=== PATIENT | female | born 1940 | race Caucasian/White ===

== ENCOUNTER → 2016-08-01 | Outpatient (CLI) | payer MEDICARE, OTHER ==
[~2016-08-01] MED LIST: AC500T PO; ATEN50TA PO; CALC-80 PO; CLCX200C PO; CPH500CIP PO; CPR500T PO; CYCL10TA45 PO; ENXP80I.8 SC; ESTR2TAB4 PO; EZET10TA5 PO; FENO54TA PO; FEXO180T PO; FLUT1DIS26 IH; MAXIDE PO; MNTL10T PO; OMEP-10 PO; OMG1KC PO; OXYC1TAB25 PO; POTASSIUM PO; PRAVASTATIN 20 MG PO; Q10 PO; VIT C PO; VIT E PO; WRF1T PO; WRF2T PO; WRF5T PO
--- OUTSIDE RECORDS SUMMARY | 2016-08-01 13:03 | XMS REPORT | Continuity of Care Document ---
Author Author [facility] Organization [facility] Address Unknown Phone Unavailable Care Team Providers Care Mooner Name Role Phone SILVANO OGLESBY DO PCP Insurance Providers Payer Name Policy Number Subscriber Name Relationship Wps Medicare [id number] Raymon Urbano 18 Self / Same As Patient For Life [id number] Raymon Urbano 18 Self / Same As Patient Advance Directives Directive Response Recorded Date/Time Advance Directives Yes 07/27/14 12:28pm Health Care Power of Pearl Glue Drier Hitesh HASTINGS 07/27/14 12:28pm Organ Donor No [...] Type Severity Reaction Status Last Updated Penicillins ([id number]) Allergy Unknown Active 07/07/15 Aspirin Allergy Unknown [...] SELECTED GROUPS OF HIGH RISK PATIENTS. [employer] CONSENSUS [employer]FERENCE ON ANTITHROMBOTIC THERAPY (2000). Procedures Procedure Status Date Provider(s) Tracing only of electrocardiogram Completed 02/01/16 SILVANO OGLESBY DO Color Doppler echocardiography Active 02/02/16 SILVANO OGLESBY DO Encounters Encounter Location Arrival/Admit Date Discharge/Depart Date Attending Provider Registered Clinic [facility] 02/02/16 1:24pm SILVANO OGLESBY DO Discharged Recurring [facility] 02/01/16 1:09pm 11:59pm DELTA FRANKLIN FACP, MD FACC Registered Clinic [facility] 02/01/16 12:36pm SILVANO OGLESBY DO
[2016-08-01 13:31] LABS: PROTHROMBIN TIME PATIENT 39.3 SEC (12.2-14.7)
[2016-08-01 13:35] LABS: CALCIUM 9.5 MG/DL (8.5-10.1); CREATININE SERUM 1.57 MG/DL (0.60-1.30); POTASSIUM 3.9 MMOL/L (3.6-5.0)
== END ==
LOC: LAB 12:59
PROVIDERS: ATTEND Family Medicine
DX: N28.9 Disorder of kidney and ureter, unspecified (principal); Z79.01 Long term (current) use of anticoagulants
CPT/HCPCS: 36415; 80048; 85610

== ENCOUNTER 2016-08-08 12:51 | Outpatient (RCR) | payer MEDICARE, OTHER ==
--- OUTSIDE RECORDS SUMMARY | 2016-06-04 13:08 | XMS REPORT | Continuity of Care Document ---
Author Author [facility] Organization [facility] Address Unknown Phone Unavailable Care Team Providers Care Med Dir Name Role Phone SILVANO OGLESBY DO PCP Insurance Providers Payer Name Policy Number Subscriber Name Relationship Wps Medicare [id number] Raymon Urbano 18 Self / Same As Patient For Life [id number] Raymon Urbano 18 Self / Same As Patient Advance Directives Directive Response Recorded Date/Time Advance Directives Yes 07/27/14 12:28pm Health Care Power of Grocery Packer Hitesh HASTINGS 07/27/14 12:28pm Organ Donor No 07/27/14 12:28pm Problems Active Problems Medical Problem Onset Date Status Contusion of rib on left side Unknown Acute Fall on same level from slipping, tripping or stumbling Unknown Acute Multiple rib fractures Unknown Acute Multiple rib fractures Unknown Acute Medications Current Home Medications Medication Dose Units Route Directions Days/Qty Instructions Start Date Atenolol 50 Mg 50 Mg Oral Daily 05/09/10 [Maxide 50 Mg] 50 Mg Oral Daily 05/09/10 Montelukast Sodium 10 Mg 10 Mg Oral Daily 05/09/10 Omeprazole 20 Mg 20 Mg Oral Daily 05/09/10 Ezetimibe 10 Mg 10 Mg Oral Daily 05/09/10 Calcium Carbonate/Vitamin D3 1 Each 1 Each Oral Twice Weekly Salmeterol Xinafoate/Fluticasone 1 Disk 1 Puff Inhalation Twice A Day as needed 1 PUFF 05/09/10 [Potassium] 1 Tab Oral Daily 10meq. taking 3 tabs daily 05/09/10 Warfarin Sodium 5 Mg 5 Mg Oral Daily 09/17/12, taking 2mg Fri,, , Sat 1mg other days 05/12/10 Fenofibrate 54 Mg 54 Mg Oral Three Times A Day 09/17/12 Oxycodone Hcl/Acetaminophen 1 Tab 1 Tab Oral Every 4HRS as needed for Pain 07/27/14 Cyclobenzaprine Hcl 10 Mg 0.5-1 Tab Oral Every 8HRS as needed for Spasms 07/27/14 Cephalexin Monohydrate 500 Mg 500 Mg Oral Every 8HRS 07/27/14 Past Home Medications Medication Directions Ordered Status Estradiol 2 Mg Tablet, 2 Mg Oral Daily 05/09/10 Discontinued [Pravastatin 20 Mg] , 20 Mg Oral Daily 05/09/10 Discontinued Ciprofloxacin 500 Mg Tablet, 1 Tab Oral Twice A Day 05/09/10 Discontinued Warfarin Sodium 1 Mg Tab, 1 Mg Oral Fri, , ,Sat 05/09/10 Discontinued Warfarin Sodium 2 Mg Tab, 2 Mg Oral Fri,Fri,Fri05/09/10 Discontinued [Q10] , 1 Tab Oral Daily 05/09/10 Discontinued [Vit C 600/Vit E 400] , 1 Tab Oral Daily 05/09/10 Discontinued Fish Oil 1,000 Mg Cap, 1000 Mg Oral Daily 05/09/10 Discontinued Celecoxib 200 Mg Capsule, 1 Each Oral Daily 05/09/10 Discontinued Fexofenadine Hcl 180 Mg Tablet, 1 Tab Oral Daily as needed 05/09/10 Discontinued Enoxaparin Sodium 80 Mg/0.8 Ml Soln, 70 Mg Subcutaneously Every 12 Hours 09/16 Discontinued Acetaminophen 500 Mg Tablet, 1000 Mg Oral Every 6 Hours as needed 05/12/10 Discontinued Social History Social History Problem Response Recorded Date/Time Alcohol Use Denies Use 07/27/2014 12:28pm Recreational Drug Use No 07/27/2014 12:28pm Recent Foreign Travel No 02/02/2016 1:23pm Sexually Transmitted Disease No 07/27/2014 12:28pm Sexually Transmitted Disease No 07/27/2014 12:28pm Hx Sexually Transmitted Disorders No 05/09/2010 1:37pm Hospital Discharge Instructions Current inpatient/outpatient. Discharge instructions are currently unavailable. Plan of Care Prescriptions Functional Status No functional status results. Allergies, Adverse Reactions, Alerts Allergen Type Severity Reaction Status Last Updated Penicillins ([id number]) Allergy Unknown Active 07/07/15 Aspirin Allergy Unknown Active 07/07/15 Immunizations No immunization records. Vital Signs No known vital signs results. Results Laboratory Results Test Name Result Units Flags Reference Collection Date/Time Result Date/ Time Comments Prothrombin Time 30.8 SEC H 12.2-14.7 02/01/2016 1:09pm 02/01/2016 1: 31pm INR Comment 3.0 H 0.8-1.4 02/01/2016 1:09pm 02/01/2016 1:31pm INTERPRETIVE DATA SUGGESTED THERAPEUTIC RANGE FOR INR'S: VENOUS THROMBOSIS, PULMONARY EMBOLISM, OR PREVENTION OF SYSTEMIC EMBOLISM (EG. IN ATRIAL FIBRILLATION): 2.0 - 3.0 MECHANICAL PROSTHETIC HEART VALVES: 2.5 - 3.5* *NOTE: INR'S UP TO 4.5 MAY BE NECESSARY IN SELECTED GROUPS OF HIGH RISK PATIENTS. [employer] ON ANTITHROMBOTIC THERAPY (2000). Procedures Procedure Status Date Provider(s) Tracing only of electrocardiogram Completed 02/01/16 SILVANO OGLESBY DO Color Doppler echocardiography Active 02/02/16 SILVANO OGLESBY DO Encounters Encounter Location Arrival/Admit Date Discharge/Depart Date Attending Provider Registered Clinic [facility] 02/02/16 1:24pm SILVANO OGLESBY DO Discharged Recurring [facility] 02/01/16 1:09pm 11:59pm DELTA FRANKLIN FACP, MD FACC Registered Clinic [facility] 02/01/16 12:36pm SILVANO OGLESBY DO
[2016-06-04 13:26] LABS: INR 3.1 (0.8-1.4); PROTHROMBIN TIME PATIENT 31.7 SEC (12.2-14.7)
[2016-08-08 13:09] LABS: PROTHROMBIN TIME PATIENT 22.3 SEC (12.2-14.7)
== END 2016-09-02 | disposition home or self-care (01) ==
LOC: LAB 12:51
PROVIDERS: ATTEND Internal Medicine Cardiovascular Disease
DX: Z51.81 Encounter for therapeutic drug level monitoring (principal); Z79.01 Long term (current) use of anticoagulants
CPT/HCPCS: 36415; 85610

== ENCOUNTER 2016-09-03 10:53 | Outpatient (RCR) | payer MEDICARE, OTHER ==
--- OUTSIDE RECORDS SUMMARY | 2016-07-11 14:36 | XMS REPORT | Continuity of Care Document ---
Author Author [facility] Organization [facility] Address Unknown Phone Unavailable Care Team Providers Care Associate Manager Affiliate Marketing Name Role Phone SILVANO OGLESBY DO PCP Insurance Providers Payer Name Policy Number Subscriber Name Relationship Wps Medicare [id number] Raymon Urbano 18 Self / Same As Patient For Life [id number] Raymon Urbano 18 Self / Same As Patient Advance Directives Directive Response Recorded Date/Time Advance Directives Yes 07/27/14 12:28pm Health Care Power of Powerhouse Electrician Hitesh HASTINGS 07/27/14 12:28pm Organ Donor No [...] Type Severity Reaction Status Last Updated Penicillins ([id number]) Allergy Unknown Active 07/07/15 Aspirin Allergy Unknown [...] SELECTED GROUPS OF HIGH RISK PATIENTS. [employer] CONSENSUS [employer]FERENCE ON ANTITHROMBOTIC THERAPY (2000). Procedures Procedure Status Date Provider(s) Tracing only of electrocardiogram Completed 02/01/16 SILVANO OGLESBY DO Color Doppler echocardiography Active 02/02/16 SILVANO OGLESBY DO Encounters Encounter Location Arrival/Admit Date Discharge/Depart Date Attending Provider Registered Clinic [facility] 02/02/16 1:24pm SILVANO OGLESBY DO Discharged Recurring [facility] 02/01/16 1:09pm 11:59pm DELTA FRANKLIN FACP, MD FACC Registered Clinic [facility] 02/01/16 12:36pm SILVANO OGLESBY DO
== END 2016-09-03 11:51 | disposition home or self-care (01) ==
PROVIDERS: ATTEND Nurse Practitioner
DX: M54.16 Radiculopathy, lumbar region (principal); M51.36 Other intervertebral disc degeneration, lumbar region

== ENCOUNTER → 2016-10-10 | Outpatient (CLI) | payer MEDICARE, OTHER ==
--- NOTE | 2016-10-10 17:30 | Diagnostic Imaging Report ---
EXAMINATION: PA and lateral views of the chest. INDICATION: Cough. FINDINGS: The heart is moderately enlarged. There are no focal infiltrates or vascular congestion. No effusion or pneumothorax. The mediastinum and erma appear unremarkable. There are lateral left breast and axilla surgical clips. An IVC filter is noted. Mild degenerative changes in the spine seen. IMPRESSION: Cardiomegaly. Dictated by: Dictated on workstation # [id number]
== END ==
LOC: RAD 13:25
PROVIDERS: ATTEND Family Medicine
DX: R05 Cough (principal)
CPT/HCPCS: 71020

== ENCOUNTER → 2016-10-10 | Outpatient (CLI) | payer MEDICARE, OTHER ==
[2016-10-10 14:28] LABS: BASOPHILS % (AUTO) 0 % (0-10); EOSINOPHILS % (AUTO) 0 % (0-10); LYMPHOCYTES # (AUTO) 1.4 X 10^3 (1.0-4.0); LYMPHOCYTES % (AUTO) 13 % (12-44); MEAN CORPUSCULAR HEMOGLOBIN 27 PG (25-34); MEAN CORPUSCULAR HGB CONC 32 G/DL (32-36); MEAN CORPUSCULAR VOLUME 84 FL (80-99); MONOCYTES # (AUTO) 1.3 X 10^3 (0.0-1.0); MONOCYTES % (AUTO) 12 % (0-12); NEUTROPHILS # (AUTO) 7.7 X 10^3 (1.8-7.8); NEUTROPHILS % (AUTO) 74 % (42-75); PLATELET COUNT 286 10^3/uL (130-400); RED BLOOD COUNT 5.03 10^6/uL (4.35-5.85); RED CELL DISTRIBUTION WIDTH 15.2 % (10.0-14.5); WHITE BLOOD COUNT 10.5 10^3/uL (4.3-11.0)
== END ==
LOC: LAB 14:04
PROVIDERS: ATTEND Family Medicine
DX: R05 Cough (principal); R50.9 Fever, unspecified
CPT/HCPCS: 36415; 85025

== ENCOUNTER 2016-12-03 13:08 | Outpatient (RCR) | payer MEDICARE, OTHER ==
[2016-09-12 13:44] LABS: INR 4.4 (0.8-1.4); PROTHROMBIN TIME PATIENT 42.1 SEC (12.2-14.7)
[2016-09-19 11:13] LABS: INR 4.9 (0.8-1.4)
[2016-09-19 11:15] LABS: PROTHROMBIN TIME PATIENT 46.1 SEC (12.2-14.7)
[2016-09-24 13:05] LABS: INR 2.3 (0.8-1.4); PROTHROMBIN TIME PATIENT 24.9 SEC (12.2-14.7)
[2016-10-03 13:22] LABS: INR 4.2 (0.8-1.4); PROTHROMBIN TIME PATIENT 40.4 SEC (12.2-14.7)
[2016-10-10 14:34] LABS: INR 2.6 (0.8-1.4); PROTHROMBIN TIME PATIENT 27.9 SEC (12.2-14.7)
[2016-11-07 13:05] LABS: INR 3.2 (0.8-1.4); PROTHROMBIN TIME PATIENT 32.4 SEC (12.2-14.7)
[2016-11-21 13:29] LABS: INR 4.3 (0.8-1.4); PROTHROMBIN TIME PATIENT 41.7 SEC (12.2-14.7)
[2016-11-26 14:20] LABS: INR 2.2 (0.8-1.4); PROTHROMBIN TIME PATIENT 24.5 SEC (12.2-14.7)
[2016-12-03 13:38] LABS: INR 3.5 (0.8-1.4)
== END 2016-12-11 | disposition home or self-care (01) ==
LOC: LAB 13:08
PROVIDERS: ATTEND Internal Medicine Cardiovascular Disease
DX: Z51.81 Encounter for therapeutic drug level monitoring (principal); Z79.01 Long term (current) use of anticoagulants
CPT/HCPCS: 36415; 85610

== ENCOUNTER → 2016-12-03 | Outpatient (CLI) | payer MEDICARE, OTHER ==
[2016-12-03 13:30] LABS: BILIRUBIN,URINE NEGATIVE (NEGATIVE); KETONES,URINE NEGATIVE (NEGATIVE); LEUKOCYTE ESTERASE ,URINE 1+ (NEGATIVE); NITRITE,URINE NEGATIVE (NEGATIVE); PH,URINE 7 (5-9); PROTEIN,URINE 3+ (NEGATIVE); UROBILINOGEN,URINE 1 MG/DL (NORMAL)
[2016-12-03 13:37] LABS: BASOPHILS # (AUTO) 0.1 10^3/uL (0.0-0.1); BASOPHILS % (AUTO) 1 % (0-10); EOSINOPHILS # (AUTO) 0.2 10^3/uL (0.0-0.3); EOSINOPHILS % (AUTO) 2 % (0-10); LYMPHOCYTES # (AUTO) 1.3 X 10^3 (1.0-4.0); LYMPHOCYTES % (AUTO) 14 % (12-44); MEAN CORPUSCULAR HEMOGLOBIN 25 PG (25-34); MEAN CORPUSCULAR HGB CONC 31 G/DL (32-36); MEAN CORPUSCULAR VOLUME 78 FL (80-99); MEAN PLATELET VOLUME 11.6 FL (7.4-10.4); MONOCYTES # (AUTO) 1.1 X 10^3 (0.0-1.0); MONOCYTES % (AUTO) 12 % (0-12); NEUTROPHILS # (AUTO) 6.6 X 10^3 (1.8-7.8); NEUTROPHILS % (AUTO) 72 % (42-75); PLATELET COUNT 260 10^3/uL (130-400); RED BLOOD COUNT 5.53 10^6/uL (4.35-5.85); WHITE BLOOD COUNT 9.2 10^3/uL (4.3-11.0)
[2016-12-03 13:46] LABS: SQUAMOUS EPITHELIAL CELL,UR 0-2 /HPF; WBC,URINE 0-2 /HPF
[2016-12-03 13:46] LABS: BILIRUBIN,TOTAL 1.6 MG/DL (0.1-1.0); CALCIUM 9.6 MG/DL (8.5-10.1); CREATININE SERUM 1.92 MG/DL (0.60-1.30); ICTERUS 1.1 (-100-1.9); POTASSIUM 3.8 MMOL/L (3.6-5.0)
== END ==
LOC: LAB 13:02
PROVIDERS: ATTEND Family Medicine
DX: R39.11 Hesitancy of micturition (principal); N28.9 Disorder of kidney and ureter, unspecified
CPT/HCPCS: 36415; 80053; 81000; 85025

== ENCOUNTER → 2016-12-26 | Outpatient (CLI) | payer MEDICARE, OTHER ==
[2016-12-26 15:05] LABS: BASOPHILS # (AUTO) 0.1 10^3/uL (0.0-0.1); BASOPHILS % (AUTO) 1 % (0-10); EOSINOPHILS # (AUTO) 0.1 10^3/uL (0.0-0.3); EOSINOPHILS % (AUTO) 1 % (0-10); LYMPHOCYTES % (AUTO) 12 % (12-44); MEAN CORPUSCULAR HEMOGLOBIN 23 PG (25-34); MEAN CORPUSCULAR HGB CONC 31 G/DL (32-36); MEAN CORPUSCULAR VOLUME 76 FL (80-99); MEAN PLATELET VOLUME 11.5 FL (7.4-10.4); MONOCYTES # (AUTO) 1.2 X 10^3 (0.0-1.0); MONOCYTES % (AUTO) 14 % (0-12); NEUTROPHILS # (AUTO) 6.2 X 10^3 (1.8-7.8); NEUTROPHILS % (AUTO) 72 % (42-75); PLATELET COUNT 285 10^3/uL (130-400); RED BLOOD COUNT 5.53 10^6/uL (4.35-5.85); RED CELL DISTRIBUTION WIDTH 18.1 % (10.0-14.5); WHITE BLOOD COUNT 8.7 10^3/uL (4.3-11.0)
[2016-12-26 15:26] LABS: ALBUMIN 3.6 GM/DL (3.2-4.5); BILIRUBIN,TOTAL 1.5 MG/DL (0.1-1.0); CALCIUM 9.2 MG/DL (8.5-10.1); CREATININE SERUM 2.15 MG/DL (0.60-1.30); POTASSIUM 4.2 MMOL/L (3.6-5.0); TOTAL PROTEIN 6.7 GM/DL (6.4-8.2)
[2016-12-26 15:38] LABS: BAND NEUTROPHILS 0 %; BASOPHILS % (MANUAL) 1 %; EOSINOPHILS % (MANUAL) 1 %; LYMPHOCYTES % (MANUAL) 22 %; NEUTROPHILS % (MANUAL) 73 %
== END ==
LOC: LAB 14:49
PROVIDERS: ATTEND Nurse Practitioner Family
DX: R06.02 Shortness of breath (principal)
CPT/HCPCS: 36415; 80053; 83880; 85007; 85027

== ENCOUNTER 2016-12-27 11:53 | Emergency (ER) | payer MEDICARE, OTHER ==
[~2016-12-27] VITALS: Ht 149.9 cm; Wt 69.9 kg
[2016-12-27] MEDS ORDERED: FUROSEMIDE 40 MG/4 ML INJ (LASIX) IVP ONE (12:00)
--- NOTE | 2016-12-27 12:08 | ED Respiratory ---
General Stated Complaint: RETAINING FLUID Source: patient, family, caregiver Exam Limitations: no limitations History of Present Illness Time seen by provider: 12:07 Initial Comments This 76-year-old white female presents with increasing shortness of breath for the past 2 months. The patient has been referred to the emergency department by Dr. Elizabeth's office for evaluation and treatment. Her congestive heart failure has responded poorly to her 40 mg of Lasix daily. Patient denies fever chill, productive cough, associated nausea, vomiting, dysuria, or diarrhea. She's had no significant chest pain or palpitations. The patient saw Dr. French yesterday and because of her elevated labs she was referred to the emergency department for evaluation today. The patient has been using Lasix 40 mg on a QOD basis. Allergies and Home Medications Allergies Coded Allergies: Penicillins (Unverified Allergy, Unknown, 07/07/15) aspirin (Unverified Allergy, Unknown, 07/07/15) Home Medications Atenolol 50 Mg Tablet, 50 MG PO DAILY, (Reported) Calcium Carbonate/Vitamin D3 1 Each Tablet, 1 EACH PO TWICE WEEKLY, (Reported) Cephalexin Monohydrate 500 Mg Cap, 500 MG PO Q8H, #21 Ref 0 Prescribed by: BARBARA HODGES on 07/27/141626 Cyclobenzaprine Hcl 10 Mg Tablet, 0.5-1 TAB PO Q8H PRN for SPASMS, #10 Ref 0 Prescribed by: BARBARA HODGES on 07/27/141626 Ezetimibe 10 Mg Tablet, 10 MG PO DAILY, (Reported) Fenofibrate 54 Mg Tablet, 54 MG PO TID, (Reported) Fluticasone/Salmeterol 1 Disk Inhp, 1 PUFF IH BID PRN, (Reported) 1 PUFF Montelukast Sodium 10 Mg Tab, 10 MG PO DAILY, (Reported) Omeprazole 20 Mg Capsule.dr, 20 MG PO DAILY, (Reported) Oxycodone Hcl/Acetaminophen 1 Tab Tablet, 1 TAB PO Q4H PRN for PAIN, #20 Ref 0 Prescribed by: BARBARA HODGES on 07/27/141626 Warfarin Sod 5 Mg Tab, 5 MG PO DAILY, (Reported) 09/17/12, taking 2mg Sun,Tu, Thurs, Sat 1mg other days [Maxide 50 Mg] , 50 MG PO DAILY, (Reported) [Potassium] , 1 TAB PO DAILY, (Reported) 10meq. taking 3 tabs daily Constitutional: No chills, No fever EENTM: No mouth pain, No nose congestion Respiratory: see HPI, cough, short of breath Cardiovascular: No chest pain, No palpitations Gastrointestinal: No abdominal pain, No diarrhea, No nausea, No vomiting Genitourinary: No dysuria, No frequency : No Musculoskeletal: No back pain Skin: No rash Psychiatric/Neurological: No Symptoms Reported Hematologic/Lymphatic: No Symptoms Reported Past Omgapse-Wgrlue-Lttypz Hx Patient Social History Recent Foreign Travel: No Contact w/Someone Who Travel: No Immunizations Up To Date Date of Pneumonia Vaccine: Apr 09, 2013 Date of Influenza Vaccine: Apr 09, 2014 Surgeries HX Surgeries: Yes (194 TONSILS, HYSTERECTOMY 1963, BREAST CA 75, HIP & ,10, BREAST 93,) Surgeries: Breast, Hysterectomy, Orthopedic, Tonsillectomy Respiratory Hx Respiratory Disorders: No Cardiovascular Hx Cardiac Disorders: No Neurological Hx Neurological Disorders: No Reproductive System Hx Reproductive Disorders: Yes Sexually Transmitted Disease: No Genitourinary Hx Genitourinary Disorders: No Gastrointestinal Hx Gastrointestinal Disorders: No Musculoskeletal Hx Musculoskeletal Disorders: Yes Musculoskeletal Disorders: Fractures Endocrine Hx Endocrine Disorders: No HEENT HX ENT Disorders: Yes Cancer Hx Cancer: Yes Cancer: Breast Psychosocial Hx Psychiatric Problems: No Blood Transfusions Hx Blood Disorders: Yes Reviewed Nursing Assessment Reviewed/Agree w Nursing PMH: Yes Physical Exam Vital Signs Vital Sign - Last 12Hours 12/27/16 12/27/16 12:04 14:48 Temp 97.8 Pulse 108 Resp 18 B/P (MAP) 117/78 Pulse Ox 98 O2 Delivery Room Air O2 Flow Rate 2.00 Capillary Refill : General Appearance: cachetic, mild distress Eyes: Bilateral Eye Normal Inspection HEENT: normal ENT inspection Neck: full range of motion, supple Respiratory: respiratory distress, decreased breath sounds Cardiovascular: irregularly irregular Gastrointestinal: normal bowel sounds, soft, distended Extremities: normal range of motion, swelling (2+ edema of the legs) Neurologic/Psychiatric: no motor/sensory deficits, alert Skin: normal color, warm/dry Progress/Results/Core Measures Results/Orders Lab Results Laboratory Tests Test 12/27/16 12:16 Range/Units White Blood Count 8.4 4.3-11.0 10^3/uL Red Blood Count 5.70 4.35-5.85 10^6/uL Hemoglobin 13.5 11.5-16.0 G/DL Hematocrit 43 35-52 % Mean Corpuscular Volume 76 L 80-99 FL Mean Corpuscular Hemoglobin 24 L 25-34 PG Mean Corpuscular Hemoglobin Concent 31 L 32-36 G/DL Red Cell Distribution Width 18.4 H 10.0-14.5 % Platelet Count 325 130-400 10^3/uL Mean Platelet Volume 11.5 H 7.4-10.4 FL Neutrophils (%) (Auto) 71 42-75 % Lymphocytes (%) (Auto) 15 12-44 % Monocytes (%) (Auto) 12 0-12 % Eosinophils (%) (Auto) 1 0-10 % Basophils (%) (Auto) 1 0-10 % Neutrophils # (Auto) 5.9 1.8-7.8 X 10^3 Lymphocytes # (Auto) 1.3 1.0-4.0 X 10^3 Monocytes # (Auto) 1.0 0.0-1.0 X 10^3 Eosinophils # (Auto) 0.1 0.0-0.3 10^3/uL Basophils # (Auto) 0.1 0.0-0.1 10^3/uL D-Dimer 1.76 H 0.00-0.49 UG/ML Sodium Level 142 135-145 MMOL/L Potassium Level 3.8 3.6-5.0 MMOL/L Chloride Level 105 98-107 MMOL/L Carbon Dioxide Level 19 L 21-32 MMOL/L Anion Gap 18 H 5-14 MMOL/L Blood Urea Nitrogen 34 H 7-18 MG/DL Creatinine 2.02 H 0.60-1.30 MG/DL Estimat Glomerular Filtration Rate 24 BUN/Creatinine Ratio 17 Glucose Level 110 H 70-105 MG/DL Calcium Level 9.2 8.5-10.1 MG/DL Total Bilirubin 1.7 H 0.1-1.0 MG/DL Aspartate Amino Transf (AST/SGOT) 35 H 5-34 U/L Alanine Aminotransferase (ALT/SGPT) 27 0-55 U/L Alkaline Phosphatase 56 40-136 U/L Troponin I < 0.30 <0.30 NG/ML B-Type Natriuretic Peptide 2752.9 H <100.0 PG/ML Total Protein 7.2 6.4-8.2 GM/DL Albumin 4.0 3.2-4.5 GM/DL My Orders Orders - SKYLER TRINIDAD MD Chest 1 View, Ap/Pa Only (12/27/16 11:57) Cbc With Automated Diff (12/27/16 11:57) Comprehensive Metabolic Panel (12/27/16 11:57) Saline Lock/Iv-Start (12/27/16 12:00) Furosemide Injection (Lasix Injection) (12/27/16 12:00) BNP (12/27/16 12:00) Troponin I (12/27/16 12:00) Ekg Tracing (12/27/16 12:00) Fibrin Degradation Products (12/27/16 12:00) Echo W Doppler/Color Flow (12/27/16 14:24) Ct Chest Wo (12/27/16 14:24) Medications Given in ED Current Medications Medications Dose Ordered Sig/Teressa Route Start Time Stop Time Status Last Admin Dose Admin Furosemide 80 mg ONCE ONCE IVP 12/27/16 12:00 12/27/16 12:07 DC 12/27/16 13:10 80 MG Vital Signs/I&O Vital Sign - Last 12Hours 12/27/16 12/27/16 12/27/16 12:04 14:48 15:39 Temp 97.8 Pulse 108 91 88 Resp 18 18 18 B/P (MAP) 117/78 125/84 157/85 Pulse Ox 98 100 97 O2 Delivery Room Air Nasal Cannula Room Air O2 Flow Rate 2.00 Progress Note : Time: 14:26 Progress Note The patient's chest x-ray was clear. The patient's d-dimer was elevated at 1.76. The patient's BNP was 2700. The patient's troponin was normal. The patient's EKG showed a. fib. with a ventricular rate of 90. The patient's treatment consisted of 80 mg Lasix IV and O2 per nasal cannula. Patient's pulse oximetry on room air was 83%. Oxygen was given to the patient through a nasal cannula at 2 L per nasal cannula and an improvement of her p. ox. to 96%. After telephone consultation with Dr. French a CT of the chest without contrast was ordered as well as an echo of the heart. 3:35 pm The patient's echo demonstrated an ejection fraction of 30 percent with a PA pressure of 65 mmHg consistent with severe tricuspid regurgitation. The patient 's CT of the chest demonstrated cardiomegaly but no evidence of CHF. I spoke with Dr. Angela and arrangements were made for follow up in the office Friday. I left a message for Dr. French concerning the results and the treatment plan. Departure Impression Impression: Primary Impression: Shortness of breath Additional Impressions: Tricuspid regurgitation Qualified Codes: I07.1 - Rheumatic tricuspid insufficiency Cardiomegaly Ejection fraction < 50% Disposition: HOME, SELF-CARE Condition: Improved Departure-Patient Inst. Decision time for Depature: 16:35 Referrals: TIMBO FRENCH M RIZWAN MD ORENDER, JACQUELINE S DO (PCP/Family) Primary Care Physician Patient Instructions: Tricuspid Regurgitation Add. Discharge Instructions: Follow-up closely with Friday. Call the office Friday. Lasix 40 mg daily, potassium 40 mEq daily, home oxygen at 4 liters. Come back if any problems. SKYLER TRINIDAD MD Dec 27, 2016 12:08
[2016-12-27 12:26] LABS: BASOPHILS # (AUTO) 0.1 10^3/uL (0.0-0.1); BASOPHILS % (AUTO) 1 % (0-10); EOSINOPHILS # (AUTO) 0.1 10^3/uL (0.0-0.3); EOSINOPHILS % (AUTO) 1 % (0-10); LYMPHOCYTES # (AUTO) 1.3 X 10^3 (1.0-4.0); LYMPHOCYTES % (AUTO) 15 % (12-44); MEAN CORPUSCULAR HEMOGLOBIN 24 PG (25-34); MEAN CORPUSCULAR HGB CONC 31 G/DL (32-36); MEAN CORPUSCULAR VOLUME 76 FL (80-99); MEAN PLATELET VOLUME 11.5 FL (7.4-10.4); MONOCYTES % (AUTO) 12 % (0-12); NEUTROPHILS # (AUTO) 5.9 X 10^3 (1.8-7.8); NEUTROPHILS % (AUTO) 71 % (42-75); PLATELET COUNT 325 10^3/uL (130-400); RED CELL DISTRIBUTION WIDTH 18.4 % (10.0-14.5); WHITE BLOOD COUNT 8.4 10^3/uL (4.3-11.0)
[2016-12-27 12:47] LABS: ALANINE AMINOTRANSFERASE 27 U/L (0-55); ANION GAP 18 MMOL/L (5-14); ASPARTATE AMINO TRANSFERASE 35 U/L (5-34); BILIRUBIN,TOTAL 1.7 MG/DL (0.1-1.0); BLOOD UREA NITROGEN 34 MG/DL (7-18); BUN/CREATININE RATIO 17; CALCIUM 9.2 MG/DL (8.5-10.1); CARBON DIOXIDE 19 MMOL/L (21-32); CHLORIDE 105 MMOL/L (98-107); CREATININE SERUM 2.02 MG/DL (0.60-1.30); GFR ESTIMATED 24; GLUCOSE 110 MG/DL (70-105); POTASSIUM 3.8 MMOL/L (3.6-5.0); SODIUM 142 MMOL/L (135-145); TOTAL PROTEIN 7.2 GM/DL (6.4-8.2)
[2016-12-27 12:53] LABS: TROPONIN I < 0.30 NG/ML (<0.30)
--- NOTE | 2016-12-27 13:26 | Diagnostic Imaging Report ---
INDICATION: Fluid retention. COMPARISON: 10/10/2016. FINDINGS: Upright portable view of the chest is obtained. Heart size is normal. The pulmonary vessels appear unremarkable. There is no pneumothorax, mediastinal widening, or pleural fluid demonstrated. The lungs are clear. There are postoperative changes of the left breast and axilla as well as right shoulder. IMPRESSION: No radiographic evidence of an acute cardiopulmonary abnormality. No significant interval change from the prior study. Dictated by: Dictated on workstation # [id number]
[2016-12-27 14:48] VITALS: BP 125/84
[2016-12-27 15:39] VITALS: BP 157/85
--- NOTE | 2016-12-27 16:15 | Diagnostic Imaging Report ---
PROCEDURE: CT chest without contrast. TECHNIQUE: Multiple contiguous axial images were obtained through the chest without the use of intravenous contrast. INDICATION: Fluid retention. Shortness of breath. COMPARISON: CT chest of 07/17/2014. FINDINGS: Lungs and airway: No endoluminal lesion in the trachea or central bronchi. No pulmonary mass or consolidation. No suspicious pulmonary nodules. Stable micronodules in the left lung base, the largest measuring 3 mm within the lingula. Pleura: Trace left pleural fluid. No pneumothorax. Heart and mediastinum: Visualized thyroid is normal. No supraclavicular or axillary lymphadenopathy. No mediastinal, hilar, or juxtaphrenic lymphadenopathy. Cardiomegaly without pericardial effusion. Coronary artery calcifications are present. Normal-caliber thoracic aorta with scattered atherosclerotic plaquing. A small hiatus hernia is present. Upper abdomen: Visualized portions of the unenhanced abdomen demonstrate trace perihepatic ascites. Incompletely imaged IVC filter. Atherosclerosis of the aorta. Musculoskeletal: No concerning focal osseous lesion in the thorax. Stable surgical changes of the left breast with possible adipose cutaneous flap reconstruction. IMPRESSION: 1. No pulmonary edema. 2. Trace left pleural effusion which is not amenable to thoracentesis at this time. 3. Trace perihepatic ascites. 4. Cardiomegaly. 5. Small hiatus hernia. Dictated by: Dictated on workstation # [id number]
[2016-12-27 16:50] VITALS: BP 136/75
== END 2016-12-27 16:50 | disposition home or self-care (01) ==
LOC: EDUNIT# 11:53 → ER 11:59
DX: I07.1 Rheumatic tricuspid insufficiency (principal); I51.7 Cardiomegaly; I50.9 Heart failure, unspecified; Z79.01 Long term (current) use of anticoagulants; Z90.710 Acquired absence of both cervix and uterus; Z85.3 Personal history of malignant neoplasm of breast; Z90.89 Acquired absence of other organs
CPT/HCPCS: 36415; 71010; 71250; 80053; 83880; 84484; 85025; 85379; 93005; 93306; 96374

== ENCOUNTER → 2017-01-13 | Outpatient (CLI) | payer MEDICARE, OTHER ==
[2017-01-13 10:53] LABS: BASOPHILS # (AUTO) 0.1 10^3/uL (0.0-0.1); BASOPHILS % (AUTO) 1 % (0-10); EOSINOPHILS # (AUTO) 0.2 10^3/uL (0.0-0.3); EOSINOPHILS % (AUTO) 3 % (0-10); LYMPHOCYTES # (AUTO) 1.1 X 10^3 (1.0-4.0); LYMPHOCYTES % (AUTO) 19 % (12-44); MEAN CORPUSCULAR HEMOGLOBIN 23 PG (25-34); MEAN CORPUSCULAR HGB CONC 31 G/DL (32-36); MEAN CORPUSCULAR VOLUME 75 FL (80-99); MEAN PLATELET VOLUME 10.9 FL (7.4-10.4); MONOCYTES # (AUTO) 0.8 X 10^3 (0.0-1.0); MONOCYTES % (AUTO) 14 % (0-12); NEUTROPHILS # (AUTO) 3.6 X 10^3 (1.8-7.8); NEUTROPHILS % (AUTO) 63 % (42-75); PLATELET COUNT 270 10^3/uL (130-400); RED BLOOD COUNT 6.34 10^6/uL (4.35-5.85); RED CELL DISTRIBUTION WIDTH 20.4 % (10.0-14.5); WHITE BLOOD COUNT 5.6 10^3/uL (4.3-11.0)
[2017-01-13 11:02] LABS: INR 1.6 (0.8-1.4); PROTHROMBIN TIME PATIENT 19.2 SEC (12.2-14.7)
[2017-01-13 11:16] LABS: CREATININE SERUM 1.54 MG/DL (0.60-1.30); POTASSIUM 3.6 MMOL/L (3.6-5.0)
[2017-01-13 11:17] LABS: BILIRUBIN,TOTAL 1.5 MG/DL (0.1-1.0); CALCIUM 10.2 MG/DL (8.5-10.1); MAGNESIUM 1.7 MG/DL (1.8-2.4); TOTAL PROTEIN 7.3 GM/DL (6.4-8.2)
[2017-01-13 11:38] LABS: DIGOXIN 0.59 NG/ML (0.80-2.00); THYROID STIMULATING HORMONE 2.2 UIU/ML (0.35-4.94)
== END ==
LOC: LAB 10:26
PROVIDERS: ATTEND Internal Medicine Cardiovascular Disease
DX: I48.2 Chronic atrial fibrillation (principal); E78.4 Other hyperlipidemia; I42.0 Dilated cardiomyopathy; I50.21 Acute systolic (congestive) heart failure; N18.4 Chronic kidney disease, stage 4 (severe); R06.02 Shortness of breath
CPT/HCPCS: 36415; 80053; 80162; 83735; 84443; 85025; 85610

== ENCOUNTER → 2017-01-14 | Outpatient (CLI) | payer MEDICARE, OTHER ==
[~2017-01-14] VITALS: Ht 175.3 cm; Wt 68.9 kg
[~2017-01-14] MED LIST changes: +CATHETER FLUSH 10 ML SYR IV PRN; +REGADENOSON 0.4 MG/5 ML SYR (LEXISCAN) IV ONE
[2017-01-14 09:47] VITALS: BP 174/88
--- NOTE | 2017-01-15 07:13 | STRESS TEST ---
DATE OF SERVICE: 01/14/2017 RESTING AND POST-REGADENOSON TECHNETIUM-99M TETROFOSMIN SPECT CT IMAGING ORDERING PHYSICIAN: Dr. Domingo. PRIMARY PHYSICIAN: Dr. Han. CLINICAL DIAGNOSES: Acute diastolic heart failure, dilated cardiomyopathy, shortness of breath. Baseline images were carried out after injection of 10.86 mCi of technetium-99m tetrofosmin. This was followed by 0.4 mg of regadenoson and 30.4 mCi of technetium-99m tetrofosmin for stress imaging. The electrocardiogram showed atrial fibrillation with a controlled ventricular response and with nonspecific ST and T-wave abnormality. This did not change significantly with regadenoson infusion. She noted some headache following regadenoson infusion, which resolved in a few minutes. Review of images at rest and following stress indicates no significant perfusion defects consistent with myocardial ischemia or infarction. Gated images show normal global left ventricular systolic function with normal regional wall motion. Left ventricular ejection fraction is calculated to be 63%. Left ventricular end-diastolic volume is 41 mL. TID is absent (1.01). CONCLUSIONS: 1. No evidence of any significant myocardial ischemia or infarction on this study. 2. Normal regional wall motion. 3. Normal global left ventricular systolic function with a calculated ejection fraction of 63%. Job ID: [id number] DocumentID: [id number] Dictated Date: 01/14/2017 15:25:08 Telephone Answerer Date: 01/15/2017 04:52:47 Dictated By: DELTA DOMINGO MD, MA, FACP, FACC,
== END ==
LOC: CARD 07:40
PROVIDERS: ATTEND Internal Medicine Cardiovascular Disease
DX: I50.21 Acute systolic (congestive) heart failure (principal); I42.0 Dilated cardiomyopathy; E78.4 Other hyperlipidemia; R06.02 Shortness of breath; N18.4 Chronic kidney disease, stage 4 (severe); I48.2 Chronic atrial fibrillation
CPT/HCPCS: 78452; 93017

== ENCOUNTER → 2017-01-20 | Outpatient (CLI) | payer MEDICARE, OTHER ==
[~2017-01-20] MED LIST changes: -CATHETER FLUSH 10 ML SYR IV PRN; -REGADENOSON 0.4 MG/5 ML SYR (LEXISCAN) IV ONE
[2017-01-20 13:57] LABS: BILIRUBIN,TOTAL 0.9 MG/DL (0.1-1.0); CREATININE SERUM 1.57 MG/DL (0.60-1.30); MAGNESIUM 1.4 MG/DL (1.8-2.4); POTASSIUM 3.5 MMOL/L (3.6-5.0); TOTAL PROTEIN 7.2 GM/DL (6.4-8.2)
== END ==
LOC: LAB 12:30
PROVIDERS: ATTEND Nurse Practitioner Family
DX: N18.4 Chronic kidney disease, stage 4 (severe) (principal); I50.21 Acute systolic (congestive) heart failure
CPT/HCPCS: 36415; 80053; 83735

== ENCOUNTER → 2017-01-24 | Outpatient (CLI) | payer MEDICARE, OTHER | LOC: CARD 14:15 | PROVIDERS: ATTEND Nurse Practitioner Family | DX: R06.02 Shortness of breath (principal); J42 Unspecified chronic bronchitis; R60.9 Edema, unspecified | CPT/HCPCS: 94060; 94726; 94729 ==

== ENCOUNTER → 2017-02-04 | Outpatient (CLI) | payer MEDICARE, OTHER ==
[2017-02-04 13:44] LABS: CALCIUM 9.7 MG/DL (8.5-10.1); CREATININE SERUM 1.38 MG/DL (0.60-1.30); MAGNESIUM 1.5 MG/DL (1.8-2.4); POTASSIUM 3.8 MMOL/L (3.6-5.0)
[2017-02-04 13:51] LABS: DIGOXIN 0.42 NG/ML (0.80-2.00)
== END ==
LOC: LAB 13:06
PROVIDERS: ATTEND Nurse Practitioner Family
DX: I48.2 Chronic atrial fibrillation (principal); I42.0 Dilated cardiomyopathy; E78.4 Other hyperlipidemia; E87.6 Hypokalemia; E83.42 Hypomagnesemia; I50.41 Acute combined systolic (congestive) and diastolic (congestive) heart failure; Z79.899 Other long term (current) drug therapy; Z79.01 Long term (current) use of anticoagulants
CPT/HCPCS: 36415; 80048; 80162; 83735

== ENCOUNTER 2017-02-07 09:13 | Outpatient (RCR) | payer MEDICARE, OTHER ==
[2016-12-26 15:17] LABS: INR 4.4 (0.8-1.4); PROTHROMBIN TIME PATIENT 41.9 SEC (12.2-14.7)
[2017-01-01 14:12] LABS: INR 3.3 (0.8-1.4); PROTHROMBIN TIME PATIENT 33.6 SEC (12.2-14.7)
[2017-02-04 16:55] LABS: PROTHROMBIN TIME PATIENT 47.9 SEC (12.2-14.7)
[2017-02-04 16:56] LABS: INR 5.3 (0.8-1.4)
[2017-02-07 09:32] LABS: INR 3.3 (0.8-1.4)
== END 2017-03-08 | disposition home or self-care (01) ==
LOC: LAB 09:13
PROVIDERS: ATTEND Internal Medicine Cardiovascular Disease
DX: I48.91 Unspecified atrial fibrillation (principal); Z79.01 Long term (current) use of anticoagulants
CPT/HCPCS: 36415; 85610

== ENCOUNTER → 2017-02-13 | Outpatient (CLI) | payer MEDICARE, OTHER ==
[2017-02-13 10:28] LABS: CALCIUM 10.3 MG/DL (8.5-10.1); CREATININE SERUM 1.35 MG/DL (0.60-1.30); MAGNESIUM 1.7 MG/DL (1.8-2.4); POTASSIUM 3.6 MMOL/L (3.6-5.0)
== END ==
LOC: LAB 09:25
PROVIDERS: ATTEND Nurse Practitioner Family
DX: E83.42 Hypomagnesemia (principal)
CPT/HCPCS: 36415; 80048; 83735

== ENCOUNTER → 2017-02-13 | Outpatient (CLI) | payer MEDICARE, OTHER ==
--- NOTE | 2017-02-14 09:29 | Diagnostic Imaging Report ---
Digital mammogram bilateral screening. This study was compared to prior exams of 11/15/2015; 11/16/2014; and 04/15/2013. At this time there are no current complaints. By history the patient has had a left mastectomy in 1974. There is still a fair amount of residual fibroglandular tissue overlying the left chest wall. There is no primary or secondary sign of malignancy identified however. A stereotactic clip is again seen in the medial aspect of the left breast. The fibroglandular tissue in the right breast is heterogeneously dense. This does limit the sensitivity of this exam. When compared to the previous study, there does not seem to have been any significant change. There are numerous benign-appearing calcifications and vascular calcifications throughout the right breast. There is no primary or secondary sign of malignancy noted however. IMPRESSION: 1. The post mastectomy changes on the left appear stable. There is no evidence for malignancy involving either breast. 2. The patient should have her annual bilateral screening mammogram on schedule in February of 2018. ACR BI-RADS Category 1: Negative. Result letter will be mailed to the patient. Note: At least 10% of breast cancer is not imaged by mammography. Dictated by: Dictated on workstation # [id number]
== END ==
LOC: RAD 09:20
PROVIDERS: ATTEND Family Medicine
DX: Z12.31 Encounter for screening mammogram for malignant neoplasm of breast (principal)
CPT/HCPCS: 77067

== ENCOUNTER 2017-02-21 20:20 | Outpatient (CLI) | payer MEDICARE, OTHER | END 2017-02-22 06:35 | disposition home or self-care (01) | LOC: SLEEP 20:20 | PROVIDERS: ATTEND Nurse Practitioner Family | DX: G47.33 Obstructive sleep apnea (adult) (pediatric) (principal) | CPT/HCPCS: 95811 ==

== ENCOUNTER 2017-03-10 09:58 | Outpatient (RCR) | payer MEDICARE, OTHER ==
[2017-03-10 10:16] LABS: INR 3.5 (0.8-1.4); PROTHROMBIN TIME PATIENT 34.8 SEC (12.2-14.7)
[2017-03-20 11:06] LABS: INR 2.4 (0.8-1.4); PROTHROMBIN TIME PATIENT 25.7 SEC (12.2-14.7)
== END 2017-06-08 | disposition home or self-care (01) ==
LOC: LAB 09:58
PROVIDERS: ATTEND Internal Medicine Cardiovascular Disease
DX: Z51.81 Encounter for therapeutic drug level monitoring (principal); I48.91 Unspecified atrial fibrillation; Z79.01 Long term (current) use of anticoagulants
CPT/HCPCS: 36415; 85610

== ENCOUNTER → 2017-03-25 | Outpatient (CLI) | payer MEDICARE, OTHER ==
[2017-03-25 15:16] LABS: INR 1.7 (0.8-1.4); PROTHROMBIN TIME PATIENT 19.9 SEC (12.2-14.7)
== END ==
LOC: LAB 14:58
PROVIDERS: ATTEND Family Medicine
DX: I48.91 Unspecified atrial fibrillation (principal); Z79.01 Long term (current) use of anticoagulants
CPT/HCPCS: 36415; 85610

== ENCOUNTER → 2017-07-15 | Outpatient (CLI) | payer MEDICARE, OTHER ==
[2017-07-15 12:12] LABS: ALBUMIN 4.2 GM/DL (3.2-4.5); BILIRUBIN,TOTAL 0.6 MG/DL (0.1-1.0); CALCIUM 10.3 MG/DL (8.5-10.1); CREATININE SERUM 1.54 MG/DL (0.60-1.30); MAGNESIUM 1.8 MG/DL (1.8-2.4); POTASSIUM 4.1 MMOL/L (3.6-5.0); TOTAL PROTEIN 7.6 GM/DL (6.4-8.2)
[2017-07-15 12:18] LABS: DIGOXIN 0.51 NG/ML (0.80-2.00)
== END ==
LOC: RAD 10:22
PROVIDERS: ATTEND Nurse Practitioner Family
DX: I48.2 Chronic atrial fibrillation (principal); I42.0 Dilated cardiomyopathy; G47.33 Obstructive sleep apnea (adult) (pediatric); I50.41 Acute combined systolic (congestive) and diastolic (congestive) heart failure; E78.4 Other hyperlipidemia; N18.4 Chronic kidney disease, stage 4 (severe)
CPT/HCPCS: 36415; 80053; 80061; 80162; 83735; 93306

== ENCOUNTER → 2017-11-07 | Outpatient (CLI) | payer MEDICARE, OTHER ==
[2017-11-07 08:56] LABS: CALCIUM 10.3 MG/DL (8.5-10.1); CREATININE SERUM 1.44 MG/DL (0.60-1.30); POTASSIUM 4.1 MMOL/L (3.6-5.0)
== END ==
LOC: LAB 07:52
PROVIDERS: ATTEND Family Medicine
DX: R73.9 Hyperglycemia, unspecified (principal)
CPT/HCPCS: 36415; 80048; 83036

== ENCOUNTER → 2018-02-23 | Outpatient (CLI) | payer MEDICARE, OTHER ==
--- NOTE | 2018-02-23 13:07 | Diagnostic Imaging Report ---
INDICATION: Routine screening. COMPARISON: Comparison is made with prior mammogram from 02/13/2017 and 11/15/2015. TECHNIQUE: 2D and 3D bilateral screening mammography was performed with computer-aided detection (CAD) system. FINDINGS: The breasts are heterogeneously dense, limiting the sensitivity of mammography. Reportedly, patient has undergone left breast mastectomy with TRAM flap. The residual fibroglandular tissue on the left appears stable. There are surgical clips in the left axilla. Right breast demonstrates numerous benign-appearing parenchymal and vascular calcifications. No mass or malignant appearing microcalcifications are seen. IMPRESSION: No mammographic features suspicious for malignancy are identified. ACR BI-RADS Category 2: Benign findings. Result letter will be mailed to the patient. Note: At least 10% of breast cancer is not imaged by mammography. Dictated by: Dictated on workstation # [id number]
== END ==
LOC: RAD 11:04
PROVIDERS: ATTEND Family Medicine
DX: Z12.31 Encounter for screening mammogram for malignant neoplasm of breast (principal)
CPT/HCPCS: 77067

== ENCOUNTER → 2018-02-25 | Outpatient (CLI) | payer MEDICARE, OTHER ==
[2018-02-25 09:34] LABS: BILIRUBIN,TOTAL 0.7 MG/DL (0.1-1.0); CALCIUM 9.7 MG/DL (8.5-10.1); CREATININE SERUM 1.21 MG/DL (0.60-1.30); POTASSIUM 4.1 MMOL/L (3.6-5.0); TOTAL PROTEIN 6.8 GM/DL (6.4-8.2)
== END ==
LOC: LAB 08:54
PROVIDERS: ATTEND Family Medicine
DX: E11.65 Type 2 diabetes mellitus with hyperglycemia (principal)
CPT/HCPCS: 36415; 80053; 83036

== ENCOUNTER → 2018-02-25 | Outpatient (CLI) | payer MEDICARE, OTHER ==
[2018-02-25 09:36] LABS: ALBUMIN 3.9 GM/DL (3.2-4.5); BILIRUBIN,TOTAL 0.7 MG/DL (0.1-1.0); CALCIUM 9.7 MG/DL (8.5-10.1); CREATININE SERUM 1.2 MG/DL (0.60-1.30); TOTAL PROTEIN 6.8 GM/DL (6.4-8.2)
== END ==
LOC: LAB 08:58
PROVIDERS: ATTEND Nurse Practitioner Family
DX: N18.4 Chronic kidney disease, stage 4 (severe) (principal); I48.2 Chronic atrial fibrillation; I42.0 Dilated cardiomyopathy; G47.33 Obstructive sleep apnea (adult) (pediatric); I50.41 Acute combined systolic (congestive) and diastolic (congestive) heart failure; E78.5 Hyperlipidemia, unspecified; E11.65 Type 2 diabetes mellitus with hyperglycemia
CPT/HCPCS: 36415; 80053; 80061

== ENCOUNTER → 2018-04-07 | Outpatient (CLI) | payer MEDICARE, OTHER ==
[~2018-04-07] VITALS: Ht 144.8 cm; Wt 64.4 kg
[~2018-04-07] MED LIST changes: +CATHETER FLUSH 10 ML SYR IV PRN; +REGADENOSON 0.4 MG/5 ML SYR (LEXISCAN) IV ONE
[2018-04-07 09:27] VITALS: BP 178/91
[2018-04-07 09:34] VITALS: BP 210/85
--- NOTE | 2018-04-07 21:09 | STRESS TEST ---
DATE OF SERVICE: 04/07/2018 RESTING AND POST REGADENOSON TECHNETIUM-99M TETROFOSMIN SPECT CT IMAGING ORDERING PHYSICIAN: Dr. Domingo. PRIMARY PHYSICIAN: Dr. Han. CLINICAL DIAGNOSIS: Chest discomfort. Baseline images were carried out after injection of 10.96 mCi of technetium-99m Tetrofosmin. This was followed by 0.4 mg regadenoson and 29.6 mCi of technetium-99m Tetrofosmin for stress imaging. The electrocardiogram showed atrial fibrillation with a nonspecific ST and T-wave abnormality throughout the study. The patient noted abdominal cramping following regadenoson infusion, which resolved in a few minutes. Review of images at rest and following stress does not indicate any significant perfusion defects consistent with significant myocardial ischemia or infarction. Gated images show normal global left ventricular systolic function with normal regional wall motion. Left ventricular ejection fraction is calculated to be 72%. Left ventricular end diastolic volume is 46 mL. TID is absent (1.02). CONCLUSIONS: 1. No evidence of any significant myocardial ischemia or infarction on this study. 2. Normal regional wall motion. 3. Normal global left ventricular systolic function with a calculated ejection fraction of 72%. 4. Normal left ventricular cavity size. Job ID: [id number] DocumentID: [id number] Dictated Date: 04/07/2018 18:31:54 Yard Cleaner Date: 04/07/2018 21:08:53 Dictated By: DELTA DOMINGO MD, MA, FACP, FACC,
== END ==
LOC: CARD 07:23
PROVIDERS: ATTEND Internal Medicine Cardiovascular Disease
DX: I48.2 Chronic atrial fibrillation (principal); R07.9 Chest pain, unspecified; N18.4 Chronic kidney disease, stage 4 (severe); E78.49 Other hyperlipidemia; R06.02 Shortness of breath; E11.9 Type 2 diabetes mellitus without complications; Z79.01 Long term (current) use of anticoagulants
CPT/HCPCS: 78452; 93017

== ENCOUNTER → 2018-08-26 | Outpatient (CLI) | payer MEDICARE, OTHER ==
[~2018-08-26] MED LIST changes: -CATHETER FLUSH 10 ML SYR IV PRN; -REGADENOSON 0.4 MG/5 ML SYR (LEXISCAN) IV ONE
[2018-08-26 10:40] LABS: BASOPHILS # (AUTO) 0.1 10^3/uL (0.0-0.1); BASOPHILS % (AUTO) 1 % (0-10); EOSINOPHILS # (AUTO) 0.2 10^3/uL (0.0-0.3); EOSINOPHILS % (AUTO) 3 % (0-10); HEMATOCRIT 47 % (35-52); HEMOGLOBIN 16.1 G/DL (11.5-16.0); LYMPHOCYTES # (AUTO) 1.6 X 10^3 (1.0-4.0); LYMPHOCYTES % (AUTO) 18 % (12-44); MEAN CORPUSCULAR HEMOGLOBIN 28 PG (25-34); MEAN CORPUSCULAR HGB CONC 34 G/DL (32-36); MEAN CORPUSCULAR VOLUME 83 FL (80-99); MEAN PLATELET VOLUME 10.4 FL (7.4-10.4); MONOCYTES % (AUTO) 11 % (0-12); NEUTROPHILS # (AUTO) 5.8 X 10^3 (1.8-7.8); NEUTROPHILS % (AUTO) 67 % (42-75); PLATELET COUNT 319 10^3/uL (130-400); RED CELL DISTRIBUTION WIDTH 14.4 % (10.0-14.5); WHITE BLOOD COUNT 8.7 10^3/uL (4.3-11.0)
[2018-08-26 10:59] LABS: BILIRUBIN,TOTAL 0.5 MG/DL (0.1-1.0); CALCIUM 9.7 MG/DL (8.5-10.1); CREATININE SERUM 1.23 MG/DL (0.60-1.30); POTASSIUM 4.2 MMOL/L (3.6-5.0); TOTAL PROTEIN 6.9 GM/DL (6.4-8.2)
--- NOTE | 2018-08-26 12:04 | Diagnostic Imaging Report ---
INDICATION: Back pain. AP and lateral views of the thoracic spine are obtained. FINDINGS: The thoracic vertebrae appear normal in height and alignment. There is no compression deformity or acute fracture seen. There is no subluxation. The pedicles appear intact. IMPRESSION: Negative thoracic spine series. Dictated by: Dictated on workstation # [id number]
== END ==
LOC: RAD 10:05
PROVIDERS: ATTEND Family Medicine
DX: M54.6 Pain in thoracic spine (principal)
CPT/HCPCS: 36415; 72072; 80053; 83036; 84443; 85025

== ENCOUNTER → 2018-12-16 | Outpatient (CLI) | payer MEDICARE, OTHER ==
[2018-12-16 10:51] LABS: BASOPHILS # (AUTO) 0.1 10^3/uL (0.0-0.1); BASOPHILS % (AUTO) 1 % (0-10); EOSINOPHILS # (AUTO) 0.2 10^3/uL (0.0-0.3); EOSINOPHILS % (AUTO) 2 % (0-10); HEMATOCRIT 46 % (35-52); HEMOGLOBIN 15.1 G/DL (11.5-16.0); LYMPHOCYTES # (AUTO) 1.2 X 10^3 (1.0-4.0); LYMPHOCYTES % (AUTO) 14 % (12-44); MEAN CORPUSCULAR HEMOGLOBIN 27 PG (25-34); MEAN CORPUSCULAR HGB CONC 33 G/DL (32-36); MEAN CORPUSCULAR VOLUME 83 FL (80-99); MEAN PLATELET VOLUME 10.2 FL (7.4-10.4); MONOCYTES # (AUTO) 0.9 X 10^3 (0.0-1.0); MONOCYTES % (AUTO) 11 % (0-12); NEUTROPHILS # (AUTO) 6.1 X 10^3 (1.8-7.8); NEUTROPHILS % (AUTO) 72 % (42-75); PLATELET COUNT 328 10^3/uL (130-400); RED CELL DISTRIBUTION WIDTH 14.9 % (10.0-14.5); WHITE BLOOD COUNT 8.4 10^3/uL (4.3-11.0)
[2018-12-16 11:19] LABS: ALBUMIN 3.9 GM/DL (3.2-4.5); BILIRUBIN,TOTAL 0.6 MG/DL (0.1-1.0); CALCIUM 9.8 MG/DL (8.5-10.1); CREATININE SERUM 1.32 MG/DL (0.60-1.30); POTASSIUM 3.9 MMOL/L (3.6-5.0); TOTAL PROTEIN 6.8 GM/DL (6.4-8.2)
== END ==
LOC: LAB 10:36
PROVIDERS: ATTEND Internal Medicine Cardiovascular Disease
DX: E78.5 Hyperlipidemia, unspecified (principal); R53.83 Other fatigue; E11.9 Type 2 diabetes mellitus without complications
CPT/HCPCS: 36415; 80053; 80061; 83036; 84443; 85025

== ENCOUNTER → 2019-04-16 | Outpatient (CLI) | payer MEDICARE, OTHER ==
[2019-04-16 10:17] LABS: HEMOGLOBIN 15.2 G/DL (11.5-16.0); MEAN PLATELET VOLUME 10.2 FL (7.4-10.4); RED CELL DISTRIBUTION WIDTH 14.1 % (10.0-14.5)
[2019-04-16 10:39] LABS: ALBUMIN 4.3 GM/DL (3.2-4.5); BILIRUBIN,TOTAL 0.6 MG/DL (0.1-1.0); CALCIUM 10.4 MG/DL (8.5-10.1); CREATININE SERUM 1.38 MG/DL (0.60-1.30); TOTAL PROTEIN 7.3 GM/DL (6.4-8.2)
[2019-04-16 11:01] LABS: FREE T4 (FREE THYROXINE) 1.16 NG/DL (0.70-1.48)
--- NOTE | 2019-04-16 17:53 | Diagnostic Imaging Report ---
EXAMINATION: Digital mammogram bilateral screening. INDICATION: Screening. COMPARISON: This study was compared to the prior exams of 02/23/2018, 02/13/2017, and 11/15/2015. The patient has had a prior left mastectomy with a TRAM flap procedure in 1975. At this time, there are no current complaints. The current study was also evaluated with a Computer Aided Detection (CAD) system. 3-D tomosynthesis was also performed and reviewed. FINDINGS: The postsurgical changes involving the left breast seen previously are again evident and essentially no different. The fibroglandular tissue in the right breast is heterogeneously dense. This does limit the sensitivity of this exam. Overall, there does not appear to have been any significant change. There is no primary or secondary sign of malignancy noted. Numerous benign-appearing vascular and parenchymal calcifications are again seen. IMPRESSION: There is no evidence of malignancy. ACR BI-RADS Category 1: Negative. Result letter will be mailed to the patient. Note: At least 10% of breast cancer is not imaged by mammography. Dictated by: Dictated on workstation # [id number]
== END ==
LOC: RAD 09:57
PROVIDERS: ATTEND Family Medicine
DX: Z12.31 Encounter for screening mammogram for malignant neoplasm of breast (principal); E11.9 Type 2 diabetes mellitus without complications; N28.9 Disorder of kidney and ureter, unspecified; E78.5 Hyperlipidemia, unspecified; R53.83 Other fatigue
CPT/HCPCS: 36415; 77067; 80053; 80061; 83036; 84439; 84443; 85027

== ENCOUNTER → 2019-08-30 | Outpatient (CLI) | payer MEDICARE, OTHER ==
[2019-08-30 12:18] LABS: ALBUMIN 4.3 GM/DL (3.2-4.5); BILIRUBIN,TOTAL 0.4 MG/DL (0.1-1.0); CALCIUM 10.1 MG/DL (8.5-10.1); CREATININE SERUM 1.54 MG/DL (0.60-1.30); POTASSIUM 4.5 MMOL/L (3.6-5.0); TOTAL PROTEIN 7.4 GM/DL (6.4-8.2)
== END ==
LOC: LAB 11:36
PROVIDERS: ATTEND Family Medicine
DX: E11.65 Type 2 diabetes mellitus with hyperglycemia (principal)
CPT/HCPCS: 36415; 80053; 83036

== ENCOUNTER → 2020-04-03 | Outpatient (CLI) | payer MEDICARE, OTHER ==
[2020-04-03 11:34] LABS: BASOPHILS # (AUTO) 0.1 10^3/uL (0.0-0.1); BASOPHILS % (AUTO) 1 % (0-10); EOSINOPHILS # (AUTO) 0.3 10^3/uL (0.0-0.3); EOSINOPHILS % (AUTO) 3 % (0-10); HEMATOCRIT 47 % (35-52); HEMOGLOBIN 15.2 g/dL (11.5-16.0); LYMPHOCYTES # (AUTO) 1.6 10^3/uL (1.0-4.0); LYMPHOCYTES % (AUTO) 16 % (12-44); MEAN CORPUSCULAR HEMOGLOBIN 27 pg (25-34); MEAN CORPUSCULAR HGB CONC 33 g/dL (32-36); MEAN CORPUSCULAR VOLUME 83 fL (80-99); MEAN PLATELET VOLUME 10.5 fL (9.0-12.2); MONOCYTES # (AUTO) 0.9 10^3/uL (0.0-1.0); MONOCYTES % (AUTO) 9 % (0-12); NEUTROPHILS # (AUTO) 6.9 10^3/uL (1.8-7.8); NEUTROPHILS % (AUTO) 70 % (42-75); PLATELET COUNT 324 10^3/uL (130-400); WHITE BLOOD COUNT 9.9 10^3/uL (4.3-11.0)
[2020-04-03 11:51] LABS: ALBUMIN 4.1 GM/DL (3.2-4.5); BILIRUBIN,TOTAL 0.4 MG/DL (0.1-1.0); CALCIUM 9.9 MG/DL (8.5-10.1); CREATININE SERUM 1.33 MG/DL (0.60-1.30); POTASSIUM 4.1 MMOL/L (3.6-5.0); TOTAL PROTEIN 7.4 GM/DL (6.4-8.2)
== END ==
LOC: LAB 11:14
PROVIDERS: ATTEND Nurse Practitioner Family
DX: I10 Essential (primary) hypertension (principal); E11.9 Type 2 diabetes mellitus without complications; E78.5 Hyperlipidemia, unspecified
CPT/HCPCS: 36415; 80053; 80061; 82043; 83036; 84443; 85025

== ENCOUNTER → 2020-08-03 | Outpatient (CLI) | payer MEDICARE, OTHER ==
[2020-08-03 08:36] LABS: BASOPHILS # (AUTO) 0.1 10^3/uL (0.0-0.1); BASOPHILS % (AUTO) 1 % (0-10); EOSINOPHILS # (AUTO) 0.2 10^3/uL (0.0-0.3); EOSINOPHILS % (AUTO) 3 % (0-10); HEMATOCRIT 45 % (35-52); HEMOGLOBIN 14.2 g/dL (11.5-16.0); LYMPHOCYTES # (AUTO) 1.5 10^3/uL (1.0-4.0); LYMPHOCYTES % (AUTO) 19 % (12-44); MEAN CORPUSCULAR HEMOGLOBIN 26 pg (25-34); MEAN CORPUSCULAR HGB CONC 32 g/dL (32-36); MEAN CORPUSCULAR VOLUME 83 fL (80-99); MEAN PLATELET VOLUME 10.1 fL (9.0-12.2); MONOCYTES # (AUTO) 0.7 10^3/uL (0.0-1.0); MONOCYTES % (AUTO) 8 % (0-12); NEUTROPHILS # (AUTO) 5.3 10^3/uL (1.8-7.8); NEUTROPHILS % (AUTO) 69 % (42-75); PLATELET COUNT 332 10^3/uL (130-400); WHITE BLOOD COUNT 7.8 10^3/uL (4.3-11.0)
[2020-08-03 08:54] LABS: ALBUMIN 4.1 GM/DL (3.2-4.5); BILIRUBIN,TOTAL 0.6 MG/DL (0.1-1.0); CALCIUM 9.8 MG/DL (8.5-10.1); CREATININE SERUM 1.44 MG/DL (0.60-1.30); POTASSIUM 3.9 MMOL/L (3.6-5.0); TOTAL PROTEIN 8.2 GM/DL (6.4-8.2)
== END ==
LOC: LAB 08:04
PROVIDERS: ATTEND Nurse Practitioner Family
DX: Z00.00 Encounter for general adult medical examination without abnormal findings (principal); E78.5 Hyperlipidemia, unspecified; I10 Essential (primary) hypertension; E11.9 Type 2 diabetes mellitus without complications
CPT/HCPCS: 36415; 80053; 80061; 82043; 83036; 84443; 85025

== ENCOUNTER → 2020-11-14 | Outpatient (CLI) | payer MEDICARE, OTHER ==
[2020-11-14 10:15] LABS: BASOPHILS # (AUTO) 0.1 10^3/uL (0.0-0.1); BASOPHILS % (AUTO) 1 % (0-10); EOSINOPHILS # (AUTO) 0.2 10^3/uL (0.0-0.3); EOSINOPHILS % (AUTO) 4 % (0-10); HEMATOCRIT 42 % (35-52); HEMOGLOBIN 13.5 g/dL (11.5-16.0); LYMPHOCYTES # (AUTO) 1.3 10^3/uL (1.0-4.0); LYMPHOCYTES % (AUTO) 21 % (12-44); MEAN CORPUSCULAR HEMOGLOBIN 27 pg (25-34); MEAN CORPUSCULAR HGB CONC 32 g/dL (32-36); MEAN CORPUSCULAR VOLUME 84 fL (80-99); MEAN PLATELET VOLUME 10.4 fL (9.0-12.2); MONOCYTES # (AUTO) 0.6 10^3/uL (0.0-1.0); MONOCYTES % (AUTO) 10 % (0-12); NEUTROPHILS # (AUTO) 3.8 10^3/uL (1.8-7.8); NEUTROPHILS % (AUTO) 64 % (42-75); PLATELET COUNT 284 10^3/uL (130-400); WHITE BLOOD COUNT 5.9 10^3/uL (4.3-11.0)
[2020-11-14 10:36] LABS: ALBUMIN 3.8 GM/DL (3.2-4.5); BILIRUBIN,TOTAL 0.5 MG/DL (0.1-1.0); CALCIUM 9.9 MG/DL (8.5-10.1); CREATININE SERUM 1.72 MG/DL (0.60-1.30); TOTAL PROTEIN 7.1 GM/DL (6.4-8.2)
== END ==
LOC: LAB 09:48
PROVIDERS: ATTEND Family Medicine
DX: E11.65 Type 2 diabetes mellitus with hyperglycemia (principal); D64.9 Anemia, unspecified
CPT/HCPCS: 36415; 80053; 83036; 85025

== ENCOUNTER → 2021-03-01 | Outpatient (CLI) | payer MEDICARE, OTHER ==
[2021-03-01 10:25] LABS: BASOPHILS # (AUTO) 0.1 10^3/uL (0.0-0.1); BASOPHILS % (AUTO) 1 % (0-10); EOSINOPHILS # (AUTO) 0.2 10^3/uL (0.0-0.3); EOSINOPHILS % (AUTO) 3 % (0-10); HEMATOCRIT 44 % (35-52); HEMOGLOBIN 13.9 g/dL (11.5-16.0); LYMPHOCYTES # (AUTO) 1.2 10^3/uL (1.0-4.0); LYMPHOCYTES % (AUTO) 15 % (12-44); MEAN CORPUSCULAR HEMOGLOBIN 27 pg (25-34); MEAN CORPUSCULAR HGB CONC 31 g/dL (32-36); MEAN CORPUSCULAR VOLUME 87 fL (80-99); MEAN PLATELET VOLUME 10.2 fL (9.0-12.2); MONOCYTES # (AUTO) 0.8 10^3/uL (0.0-1.0); MONOCYTES % (AUTO) 9 % (0-12); NEUTROPHILS # (AUTO) 6.1 10^3/uL (1.8-7.8); NEUTROPHILS % (AUTO) 73 % (42-75); PLATELET COUNT 309 10^3/uL (130-400); WHITE BLOOD COUNT 8.4 10^3/uL (4.3-11.0)
[2021-03-01 10:47] LABS: BILIRUBIN,TOTAL 0.4 MG/DL (0.1-1.0); CALCIUM 9.6 MG/DL (8.5-10.1); CREATININE SERUM 1.52 MG/DL (0.60-1.30); POTASSIUM 4.1 MMOL/L (3.6-5.0); TOTAL PROTEIN 7.5 GM/DL (6.4-8.2)
== END ==
LOC: LAB 10:07
PROVIDERS: ATTEND Family Medicine
DX: E78.2 Mixed hyperlipidemia (principal); E11.65 Type 2 diabetes mellitus with hyperglycemia; I10 Essential (primary) hypertension
CPT/HCPCS: 36415; 80053; 80061; 83036; 85025

== ENCOUNTER → 2021-03-15 | Outpatient (CLI) | payer MEDICARE, OTHER ==
--- NOTE | 2021-03-15 10:27 | Diagnostic Imaging Report ---
INDICATION: RENAL INSUFFICIENCY TECHNIQUE: Multiple real-time grayscale sonographic images were obtained of the kidneys. CORRELATION: None FINDINGS: RIGHT KIDNEY: 9.1 x 4.4 x 4.5 cm. There is normal echotexture of the right renal parenchyma. No definitive calcification or hydronephrosis. LEFT KIDNEY: 8.3 x 4.0 x 4.9 cm. There is normal echotexture of the left renal parenchyma. No definitive calcification or hydronephrosis. URINARY BLADDER: The partially distended bladder has an unremarkable appearance. Bilateral ureteral jets are present. IMPRESSION: 1. Unremarkable renal sonogram. Dictated by: Dictated on workstation # [id number]
--- NOTE | 2021-03-15 10:34 | Diagnostic Imaging Report ---
INDICATION: RT SIDED PLEURISY. TECHNIQUE: Two view chest 10:22 AM CORRELATION STUDY: 12/27/2016 FINDINGS: Overall heart size within normal limits. There is double density suggestive of potential left atrial enlargement. Vasculature overall within normal limits. A metallic safety pin projects over the central aspect of the chest could be overlying. The lungs are clear with no consolidating infiltrate. There is no significant pleural effusion or pneumothorax. Absent left breast shadow with multiple clips over the left chest. Prior right rotator cuff surgery probable chronic rotator cuff pathology bilaterally. IVC filter present. IMPRESSION: 1. Negative for acute abnormality of the chest. 2. Slightly rounded appearance about the heart with what appears to be probable left atrial enlargement. If further assessment desired, echocardiography recommended. Dictated by: Dictated on workstation # [id number]
--- NOTE | 2021-03-15 10:43 | Diagnostic Imaging Report ---
INDICATION: RT KNEE SWELLING HX KNEE REPLACEMENT TECHNIQUE: 3 views of the right knee CORRELATION STUDY: None FINDINGS: Postoperative changes of a right total knee arthroplasty. Hardware intact. Alignment anatomic. Resurfacing of the posterior patella. No acute bony abnormality. Mild soft tissue edema. IMPRESSION: 1. Negative appearing postoperative right knee arthroplasty. No acute bony abnormality. Dictated by: Dictated on workstation # [id number]
== END ==
LOC: RAD 09:39
PROVIDERS: ATTEND Family Medicine
DX: N28.9 Disorder of kidney and ureter, unspecified (principal); R10.9 Unspecified abdominal pain; Z96.651 Presence of right artificial knee joint
CPT/HCPCS: 71046; 73562; 76770

== ENCOUNTER → 2021-04-10 | Outpatient (CLI) | payer MEDICARE, OTHER ==
[2021-04-10 10:56] LABS: BASOPHILS # (AUTO) 0.1 10^3/uL (0.0-0.1); BASOPHILS % (AUTO) 1 % (0-10); EOSINOPHILS # (AUTO) 0.2 10^3/uL (0.0-0.3); EOSINOPHILS % (AUTO) 3 % (0-10); HEMATOCRIT 44 % (35-52); HEMOGLOBIN 13.8 g/dL (11.5-16.0); LYMPHOCYTES # (AUTO) 1.2 10^3/uL (1.0-4.0); LYMPHOCYTES % (AUTO) 16 % (12-44); MEAN CORPUSCULAR HEMOGLOBIN 27 pg (25-34); MEAN CORPUSCULAR HGB CONC 31 g/dL (32-36); MEAN CORPUSCULAR VOLUME 87 fL (80-99); MEAN PLATELET VOLUME 10.4 fL (9.0-12.2); MONOCYTES # (AUTO) 0.6 10^3/uL (0.0-1.0); MONOCYTES % (AUTO) 8 % (0-12); NEUTROPHILS # (AUTO) 5.2 10^3/uL (1.8-7.8); NEUTROPHILS % (AUTO) 72 % (42-75); PLATELET COUNT 304 10^3/uL (130-400); WHITE BLOOD COUNT 7.3 10^3/uL (4.3-11.0)
[2021-04-10 11:17] LABS: ALBUMIN 3.8 GM/DL (3.2-4.5); BILIRUBIN,TOTAL 0.4 MG/DL (0.1-1.0); CALCIUM 9.4 MG/DL (8.5-10.1); CREATININE SERUM 1.46 MG/DL (0.60-1.30); POTASSIUM 4.2 MMOL/L (3.6-5.0); TOTAL PROTEIN 7.2 GM/DL (6.4-8.2)
[2021-04-10 11:40] LABS: FREE T4 (FREE THYROXINE) 1.14 NG/DL (0.70-1.48)
== END ==
LOC: LAB 10:35
PROVIDERS: ATTEND Family Medicine
DX: Z00.01 Encounter for general adult medical examination with abnormal findings (principal); E11.65 Type 2 diabetes mellitus with hyperglycemia; E78.2 Mixed hyperlipidemia; L10.4 Pemphigus erythematosus
CPT/HCPCS: 36415; 80053; 80061; 83036; 84439; 84443; 85025

== ENCOUNTER → 2021-07-03 | Outpatient (CLI) | payer MEDICARE, OTHER | LOC: CARD 13:30 | PROVIDERS: ATTEND Nurse Practitioner Family | DX: I08.3 Combined rheumatic disorders of mitral, aortic and tricuspid valves (principal); I48.21 Permanent atrial fibrillation | CPT/HCPCS: 36415; 80162; 93306 ==

== ENCOUNTER → 2021-11-09 | Outpatient (CLI) | payer MEDICARE, OTHER ==
--- NOTE | 2021-11-09 10:07 | Diagnostic Imaging Report ---
INDICATION: Left shoulder pain. TIME OF EXAM: 9:57 AM 3 views of the left shoulder were obtained. The humeral head is in a high riding position with complete narrowing of the acromiohumeral space. Findings are consistent with chronic rotator cuff arthropathy. Acromioclavicular alignment is normal. No fractures are identified. IMPRESSION: Changes of chronic rotator cuff arthropathy. No acute bony abnormality is detected. Dictated by: Dictated on workstation # [id number]
[2021-11-09 10:19] LABS: ALBUMIN 3.8 GM/DL (3.2-4.5); BILIRUBIN,TOTAL 0.4 MG/DL (0.1-1.0); CALCIUM 9.4 MG/DL (8.5-10.1); CREATININE SERUM 1.43 MG/DL (0.60-1.30); POTASSIUM 4.1 MMOL/L (3.6-5.0); TOTAL PROTEIN 7.2 GM/DL (6.4-8.2)
== END ==
LOC: RAD 09:36
PROVIDERS: ATTEND Family Medicine
DX: M19.011 Primary osteoarthritis, right shoulder (principal); E11.65 Type 2 diabetes mellitus with hyperglycemia
CPT/HCPCS: 36415; 73030; 80053; 83036

== ENCOUNTER 2021-12-12 18:05 | Inpatient (IN) | payer MEDICARE, OTHER ==
[~2021-12-12] VITALS: Ht 145 cm; Wt 66.5 kg
[2021-12-12] MEDS ORDERED: ASPIRIN 81 MG CHEW (CHILDREN'S ASA) ONE (18:19)
[2021-12-12] MEDS ORDERED: ONDANSETRON 4 MG/2 ML (SDV) Z0FRAN ONE (18:19)
[2021-12-12] MEDS ORDERED: morphine INJ 10 MG/ML 1ML (SYR OR VIAL) IVP STA ×2 (18:20→18:50)
[2021-12-12 18:28] LABS: BASOPHILS # (AUTO) 0.1 10^3/uL (0.0-0.1); BASOPHILS % (AUTO) 1 % (0-10); EOSINOPHILS # (AUTO) 0.1 10^3/uL (0.0-0.3); EOSINOPHILS % (AUTO) 1 % (0-10); HEMATOCRIT 47 % (35-52); HEMOGLOBIN 15.1 g/dL (11.5-16.0); LYMPHOCYTES # (AUTO) 1.9 10^3/uL (1.0-4.0); LYMPHOCYTES % (AUTO) 14 % (12-44); MEAN CORPUSCULAR HEMOGLOBIN 28 pg (25-34); MEAN CORPUSCULAR HGB CONC 32 g/dL (32-36); MEAN CORPUSCULAR VOLUME 87 fL (80-99); MEAN PLATELET VOLUME 10.3 fL (9.0-12.2); MONOCYTES # (AUTO) 0.9 10^3/uL (0.0-1.0); MONOCYTES % (AUTO) 6 % (0-12); NEUTROPHILS # (AUTO) 10.5 10^3/uL (1.8-7.8); NEUTROPHILS % (AUTO) 77 % (42-75); PLATELET COUNT 417 10^3/uL (130-400); WHITE BLOOD COUNT 13.7 10^3/uL (4.3-11.0)
[2021-12-12] MEDS ORDERED: ONDANSETRON 4 MG/2 ML (SDV) Z0FRAN IVP ONE (18:30)
[2021-12-12 18:39] LABS: ALBUMIN 4.3 GM/DL (3.2-4.5); POTASSIUM 3.8 MMOL/L (3.6-5.0); PROTHROMBIN TIME PATIENT 13.2 SEC (12.2-14.7)
--- NOTE | 2021-12-12 18:39 | ED Chest Pain ---
General Chief Complaint: Chest Pain Stated Complaint: CHEST PAIN Source: patient (SOMEWHAT LIMITED HISTORIAN) History of Present Illness Date Seen by Provider: Dec 12, 2021 Time Seen by Provider: 18:10 Initial Comments PT ARRIVES VIA POV FROM HOME C/O MID CHEST PAIN SINCE 1400 TODAY NO RADIATION OF PAIN RATES PAIN 10/10 PAIN IS WORSE WITH WALKING + SHORTNESS OF BREATH NO CHANGE IN CHRONIC LEG SWELLING + NAUSEA, NO VOMITING. NO DIZZINESS OR SYNCOPE NO HISTORY OF SIMILAR HAS NEVER HAD A CARDIAC CATH, HAD A NORMAL STRESS TEST IN 2018. PT HAS CHRONIC ATRIAL FIBRILLATION AND IS ON ELIQUIS PT LATER STATES THAT SHE HAS BEEN ON AN ANTIBIOTIC ( CLINDAMYCIN) FOR THE LAST WEEK FOR AN DENTAL INFECTION, AND HAS BEEN OFF HER ELIQUIS FOR THE LAST 2 DAYS BECAUSE SHE IS SUPPOSED TO GET HER TOOTH PULLED THIS WEEK. PT IS NON-INSULIN DEPENDENT DIABETIC PCP: DR. OGLESBY MANAGER MEDICAL AFFAIRS: DR. FRANKLIN Allergies and Home Medications Allergies Coded Allergies: Penicillins (Unverified Allergy, Unknown, 07/07/15) aspirin (Unverified Allergy, Unknown, 07/07/15) Patient Home Medication List Home Medication List Reviewed: Yes Atenolol (Tenormin 50 Mg) 50 Mg Tablet, 50 MG PO DAILY, (Reported) Entered as Reported by: UYEN FRANKS on 05/09/10 1505 Calcium Carbonate/Vitamin D3 (Calcium 600 + D Caplet) 1 Each Tablet, 1 EACH PO TWICE WEEKLY, (Reported) Entered as Reported by: UYEN FRANKS on 05/09/10 1505 Cephalexin Monohydrate (Keflex Cap) 500 Mg Cap, 500 MG PO Q8H Prescribed by: BARBARA HODGES on 07/27/14 1627 Cyclobenzaprine Hcl (Flexeril Tablet) 10 Mg Tablet, 0.5-1 TAB PO Q8H PRN for SPASMS Prescribed by: BARBARA HODGES on 07/27/14 1627 Ezetimibe (Zetia) 10 Mg Tablet, 10 MG PO DAILY, (Reported) Entered as Reported by: UYEN FRANKS on 05/09/10 1505 Fenofibrate (Fenofibrate) 54 Mg Tablet, 54 MG PO TID, (Reported) Entered as Reported by: CLAY CANTU on 09/17/12 1332 Fluticasone/Salmeterol (Advair 250 Mcg/50 Mcg 60's) 1 Disk Inhp, 1 PUFF IH BID PRN, (Reported) Entered as Reported by: UYEN FRANKS on 05/09/10 150 Montelukast Sodium (Singulair) 10 Mg Tab, 10 MG PO DAILY, (Reported) Entered as Reported by: UYEN FRANKS on 05/09/10 150 Omeprazole (Prilosec 20 Mg) 20 Mg Capsule.dr, 20 MG PO DAILY, (Reported) Entered as Reported by: UYEN FRANKS on 05/09/10 150 Oxycodone Hcl/Acetaminophen (Oxycodone W-Apap 5/325 Tablet) 1 Tab Tablet, 1 TAB PO Q4H PRN for PAIN Prescribed by: BARBARA HODGES on 07/27/14 162 Warfarin Sod (Coumadin 5 Mg) 5 Mg Tab, 5 MG PO DAILY, (Reported) Entered as Reported by: TANIKA GEORGE on 05/12/10 0812 [Maxide 50 Mg] , 50 MG PO DAILY, (Reported) Entered as Reported by: UYEN FRANKS on 05/09/10 150 [Potassium] , 1 TAB PO DAILY, (Reported) Entered as Reported by: UYEN FRANKS on 05/09/10 150 Review of Systems Review of Systems Constitutional: no symptoms reported; No diaphoresis EENTM: No Symptoms Reported Respiratory: See HPI, Shortness of Air Cardiovascular: See HPI, Chest Pain, Edema; Denies Lightheadedness Gastrointestinal: See HPI; Denies Abdominal Pain; Nausea; Denies Vomiting Genitourinary: No Symptoms Reported Musculoskeletal: no symptoms reported Skin: no symptoms reported Psychiatric/Neurological: No Symptoms Reported Endocrine: No Symptoms Reported Hematologic/Lymphatic: No Symptoms Reported Past Ctwezec-Rdssat-Ykaicc Hx Patient Social History Tobacco Use?: No Substance use?: No Alcohol Use?: No Past Medical History Surgeries: Yes (1945 TONSILS, HYSTERECTOMY 1963, BREAST CA , HIP & , BREAST 93,) Breast, Hysterectomy, Joint Replacement, Oophorectomy, Orthopedic, Tonsillectomy Respiratory: No Cardiac: Yes Atrial Fibrillation, Chronic Edema/Swelling, High Cholesterol, Hypertension Neurological: No 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, Menopausal Sexually Transmitted Disease: No Genitourinary: Yes (CHRONIC RENAL INSUFFICIENCY) Gastrointestinal: No Musculoskeletal: Yes Degenerate Disk Disease, Arthritis, Fractures Endocrine: Yes Diabetes, Non-Insulin dep HEENT: No Cancer: Yes Breast Did You Recieve Any Treatments: Yes What Type of Treatment Did You: Chemotherapy, Surgical Intervention Psychosocial: No Integumentary: No Blood Disorders: No Family Medical History PAST SURGICAL HISTORY: -BILATERAL KNEE REPLACEMENTS -BILATERAL HIP REPLACEMENTS -RIGHT SHOULDER SURGERY -HYSTERECTOMY/BSO -LEFT MASTECTOMY -TONSILLECTOMY Physical Exam Vital Signs Capillary Refill : Height, Weight, BMI Height: 4'9.00" Weight: 142lbs. 0.0oz. 64.856471cn; 30.7 BMI Method:Stated General Appearance: No Apparent Distress, WD/WN, Other (LOOKS UNCOMFORTABLE) Neck: Full Range of Motion, Normal Inspection, Non Tender, Supple; No Carotid Bruit, No JVD Respiratory: No Accessory Muscle Use, No Respiratory Distress, Rales (FAINT RALES IN BASES) Cardiovascular: No JVD, No Murmur, Normal Peripheral Pulses, Irregularly Irregular Gastrointestinal: Normal Bowel Sounds, No Organomegaly, No Pulsatile Mass, Non Tender, Soft Extremity: Normal Capillary Refill, Normal Range of Motion, Non Tender, No Calf Tenderness, Pedal Edema (1+ BILATERAL LOWER LEG EDEMA) Neurologic/Psychiatric: Alert, Oriented x3, No Motor/Sensory Deficits, Normal 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, 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 Norm as Tested Skin: Normal Color, Warm/Dry Progress/Results/Core Measures Results/Orders Lab Results Laboratory Tests Test 12/12/21 18:15 Range/Units White Blood Count 13.7 H 4.3-11.0 10^3/uL Red Blood Count 5.44 H 3.80-5.11 10^6/uL Hemoglobin 15.1 11.5-16.0 g/dL Hematocrit 47 35-52 % Mean Corpuscular Volume 87 80-99 fL Mean Corpuscular Hemoglobin 28 25-34 pg Mean Corpuscular Hemoglobin Concent 32 32-36 g/dL Red Cell Distribution Width 14.1 10.0-14.5 % Platelet Count 417 H 130-400 10^3/uL Mean Platelet Volume 10.3 9.0-12.2 fL Immature Granulocyte % (Auto) 1 % Neutrophils (%) (Auto) 77 H 42-75 % Lymphocytes (%) (Auto) 14 12-44 % Monocytes (%) (Auto) 6 0-12 % Eosinophils (%) (Auto) 1 0-10 % Basophils (%) (Auto) 1 0-10 % Neutrophils # (Auto) 10.5 H 1.8-7.8 10^3/uL Lymphocytes # (Auto) 1.9 1.0-4.0 10^3/uL Monocytes # (Auto) 0.9 0.0-1.0 10^3/uL Eosinophils # (Auto) 0.1 0.0-0.3 10^3/uL Basophils # (Auto) 0.1 0.0-0.1 10^3/uL Immature Granulocyte # (Auto) 0.1 0.0-0.1 10^3/uL Prothrombin Time 13.2 12.2-14.7 SEC INR Comment 1.0 0.8-1.4 Activated Partial Thromboplast Time 25 24-35 SEC Sodium Level 142 135-145 MMOL/L Potassium Level 3.8 3.6-5.0 MMOL/L Chloride Level 105 98-107 MMOL/L Carbon Dioxide Level 23 21-32 MMOL/L Anion Gap 14 5-14 MMOL/L Blood Urea Nitrogen 28 H 7-18 MG/DL Creatinine 1.76 H 0.60-1.30 MG/DL Estimat Glomerular Filtration Rate 29 BUN/Creatinine Ratio 16 Glucose Level 244 H 70-105 MG/DL Calcium Level 10.3 H 8.5-10.1 MG/DL Corrected Calcium 10.1 8.5-10.1 MG/DL Magnesium Level 1.6 1.6-2.4 MG/DL Total Bilirubin 0.4 0.1-1.0 MG/DL Aspartate Amino Transf (AST/SGOT) 26 5-34 U/L Alanine Aminotransferase (ALT/SGPT) 18 0-55 U/L Alkaline Phosphatase 62 40-136 U/L Total Creatine Kinase 100 29-168 U/L Creatine Kinase MB 4.8 <6.6 NG/ML Myoglobin 193.5 H 10.0-92.0 NG/ML Troponin I 0.105 H <0.028 NG/ML B-Type Natriuretic Peptide 751.2 H <100.0 PG/ML Total Protein 8.2 6.4-8.2 GM/DL Albumin 4.3 3.2-4.5 GM/DL Amylase Level 74 25-125 U/L Lipase 84 H 8-78 U/L Digoxin Level 0.43 L 0.80-2.00 NG/ML My Orders Orders - ANJU SHARMA DO Ekg Tracing (12/12/21 18:08) Cbc With Automated Diff (12/12/21 18:11) Magnesium (12/12/21 18:11) Chest 1 View, Ap/Pa Only (12/12/21 18:11) Ekg Tracing (12/12/21 18:11) Comprehensive Metabolic Panel (12/12/21 18:11) Myoglobin Serum (12/12/21 18:11) Protime With Inr (12/12/21 18:11) Partial Thromboplastin Time (12/12/21 18:11) O2 (12/12/21 18:11) Monitor-Rhythm Ecg Trace Only (12/12/21 18:11) Ed Iv/Invasive Line Start (12/12/21 18:11) Creatine Kinase (12/12/21 18:11) Creatine Kinase Mb (12/12/21 18:11) Lipase (12/12/21 18:11) Amylase (12/12/21 18:11) Bnp [place] (12/12/21 18:11) Troponin I [place] (12/12/21 18:11) Nitroglycerin 0.4 Mg Btl 25's (Nitrostat (12/12/21 18:15) Ondansetron Injection (Zofran Injectio (12/12/21 18:30) Morphine Injection (Morphine Injection (12/12/21 18:20) Aspirin Chewable Tablet (Baby Aspirin Ch (12/12/21 18:19) Ondansetron Injection (Zofran Injectio (12/12/21 18:19) Digoxin (12/12/21 18:32) Morphine Injection (Morphine Injection (12/12/21 18:50) Medications Given in ED Current Medications Medications Dose Ordered Sig/Teressa Route Start Time Stop Time Status Last Admin Dose Admin Aspirin 81 mg STK-MED ONCE .ROUTE 12/12/21 18:19 12/12/21 18:22 DC 12/12/21 18:32 324 MG Ondansetron HCl 4 mg ONCE ONCE IVP 12/12/21 18:30 12/12/21 18:31 DC 12/12/21 18:31 4 MG Progress Progress Note : Progress Note GIVEN ASPIRIN AND ZOFRAN GIVEN MORPHINE WITHOUT RELIEF OF PAIN O2 SATS IN 80'S--UP TO MID 90'S ON O2 AT 2L/NC Initial ECG Impression Date: Dec 12, 2021 Initial ECG Impression Time: 18:14 Initial ECG Rate: 73 Initial ECG Rhythm: A Fib/Flutter Initial ECG Impression: Acute ME (INFERIOR/ANTERIOR/LATERAL ST ELEVATION) Initial ECG Comparisson: Changed (FROM 2017) Diagnostic Imaging Comments CXR--PER RADIOLOGIST REPORT AT 1901 FINDINGS: The cardiac silhouette is enlarged. Central pulmonary vascular congestion is present. Diffusely increased interstitial opacities are identified throughout the bilateral lungs. Multiple metallic densities and surgical clips are seen overlying the left chest, stable. Postsurgical changes in the right shoulder are again identified. No significant pleural effusion. No pneumothorax. No acute osseous abnormality. IMPRESSION: 1. Development of extensive bilateral interstitial opacities. This is favored to relate to interstitial edema given cardiomegaly and pulmonary vascular congestion. Interstitial infiltrate such as Covid 19 would be an additional consideration. 2. No large-volume pleural effusion. Reviewed: Reviewed by Wi Departure Communication (Admissions) 1816/1818--PAGED/SPOKE WITH DR. FRANKLIN. ADVISES TO CALL IN MIXOLOGIST. 1819--SPOKE WITH CRYPTOGRAPHER. MIXOLOGIST BEING CALLED IN 1853--MIXOLOGIST TEAM HERE. Impression Primary Impression: STEMI (ST elevation myocardial infarction) Additional Impressions: CHF (congestive heart failure) NIDDM HTN (hypertension) Chronic atrial fibrillation Chronic renal insufficiency Disposition: ADMITTED INPATIENT (TO MIXOLOGIST) Condition: Stable Admissions Decision to Admit Reason: Admit from ER (General) (TO MIXOLOGIST) Decision to Admit/Date: Dec 12, 2021 Time/Decision to Admit Time: 18:20 Departure-Patient Inst. Referrals: SILVANO OGLESBY DO (PCP/Family) Primary Care Physician ANJU SHARMA DO Dec 12, 2021 18:39
[2021-12-12] MEDS ORDERED: LIDOCAINE 1% INJ 20 ML VIAL ONE (18:40)
[2021-12-12] MEDS ORDERED: HEParin (CATH LAB) 2,000 ML IV ONE (18:40)
[2021-12-12] MEDS ORDERED: fentaNYL INJ 100 MCG/2 ML AMP ONE (18:40)
[2021-12-12] MEDS ORDERED: MIDAZOLAM 5 MG/5 ML (VERSED) VIAL ONE (18:40)
[2021-12-12] MEDS ORDERED: NS IV 1000 ML 1,000 ML ONE (18:40)
[2021-12-12 18:41] LABS: CALCIUM 10.3 MG/DL (8.5-10.1)
[2021-12-12] MEDS ORDERED: EPTIFIBATIDE BOLUS 20 ML IV ONE (18:41)
[2021-12-12] MEDS ORDERED: NITRO DRIP 25000 MCG/D5W 250 ML IV ONE (18:41)
[2021-12-12 18:42] LABS: TOTAL PROTEIN 8.2 GM/DL (6.4-8.2)
[2021-12-12 18:44] LABS: BILIRUBIN,TOTAL 0.4 MG/DL (0.1-1.0)
[2021-12-12 18:45] LABS: CREATININE SERUM 1.76 MG/DL (0.60-1.30)
--- NOTE | 2021-12-12 18:47 | Diagnostic Imaging Report ---
INDICATION: Chest pain COMPARISON: 03/15/2021. TECHNIQUE: Two radiographs of the chest dated December 12, 2021. FINDINGS: The cardiac silhouette is enlarged. Central pulmonary vascular congestion is present. Diffusely increased interstitial opacities are identified throughout the bilateral lungs. Multiple metallic densities and surgical clips are seen overlying the left chest, stable. Postsurgical changes in the right shoulder are again identified. No significant pleural effusion. No pneumothorax. No acute osseous abnormality. IMPRESSION: 1. Development of extensive bilateral interstitial opacities. This is favored to relate to interstitial edema given cardiomegaly and pulmonary vascular congestion. Interstitial infiltrate such as Covid 19 would be an additional consideration. 2. No large-volume pleural effusion. Dictated by: Dictated on workstation # [id number]
[2021-12-12 18:48] LABS: MAGNESIUM 1.6 MG/DL (1.6-2.4)
[2021-12-12] MEDS ORDERED: HEParin 1000 UNIT/ML (10ML VIAL) FOR BOLUS ONE (18:49)
[2021-12-12 18:56] LABS: CREATINE KINASE MB 4.8 NG/ML (<6.6)
[2021-12-12] MEDS ORDERED: EPTIFIBATIDE DRIP 100 ML IV ONE (19:17)
[2021-12-12] MEDS ORDERED: CLOPIDOGREL 300 MG (PLAVIX) TABLET PO ONE (20:08)
--- NOTE | 2021-12-12 20:23 | Cardiology History & Physical ---
HPI-Cardiology Cardiology H&P Date of Admission 12/12/21 Primary Care Physician Admitting Physician: Charlene Domingo MD, MA FACP [facility] CCDS Attending Physician Nelida Hna DO Consulting Physician [facility] CC: Chest pain [facility] 81 yo woman w/ h/o chronic, permanent A Fib who presented with 6 hours of chest pain: midsternal, pressure-like, mod to severe, associated with nausea and a feeling of shortness of breath, nonradiating, not experienced before, improved with narcotic analgesic in ER. No recent fever, chills, palp or syncope. Nausea present intermittently but no vomiting or diarrhea Review of Systems-Cardiology Review of Systems Constitutional: malaise; No weight loss, No weight gain Eyes: No vision change Ears/Nose/Throat: No ear pain, No nasal drainage, No recent hearing loss Respiratory: As described under HPI Cardiovascular: As described under HPI Gastrointestinal: As described under HPI Genitourinary: dysuria, hematuria Musculoskeletal: back pain (chronic) Skin: No rash Psychiatric/Neurological: No seizure, No focal weakness, No syncope Hematologic: No bleeding abnormalities VAF-Zufpzh-Qhnnks Hx Patient Social History Have you traveled recently?: No Alcohol Use?: No Immunizations Up To Date Date of Pneumonia Vaccine: Apr 09, 2013 Date of Influenza Vaccine: Apr 09, 2014 Past Medical History PMH As described under Assessment. Allergies and Home Medications Allergies Coded Allergies: Penicillins (Unverified Allergy, Unknown, 07/07/15) aspirin (Unverified Allergy, Unknown, 07/07/15) Patient Home Medication List Home Medication List Reviewed: Yes Atenolol (Tenormin 50 Mg) 50 Mg Tablet, 50 MG PO DAILY, (Reported) Entered as Reported by: UYEN FRANKS on 05/09/10 1505 Calcium Carbonate/Vitamin D3 (Calcium 600 + D Caplet) 1 Each Tablet, 1 EACH PO TWICE WEEKLY, (Reported) Entered as Reported by: UYEN FRANKS on 05/09/10 1505 Cephalexin Monohydrate (Keflex Cap) 500 Mg Cap, 500 MG PO Q8H Prescribed by: BARBARA HODGES on 07/27/141626 Cyclobenzaprine Hcl (Flexeril Tablet) 10 Mg Tablet, 0.5-1 TAB PO Q8H PRN for SPASMS Prescribed by: BARBARA HODGES on 2/18/15 1627 Ezetimibe (Zetia) 10 Mg Tablet, 10 MG PO DAILY, (Reported) Entered as Reported by: UYEN FRANKS on 05/09/10 1505 Fenofibrate (Fenofibrate) 54 Mg Tablet, 54 MG PO TID, (Reported) Entered as Reported by: CLAY CANTU on 09/17/12 1332 Fluticasone/Salmeterol (Advair 250 Mcg/50 Mcg 60's) 1 Disk Inhp, 1 PUFF IH BID PRN, (Reported) Entered as Reported by: UYEN FRANKS on 05/09/10 1505 Montelukast Sodium (Singulair) 10 Mg Tab, 10 MG PO DAILY, (Reported) Entered as Reported by: UYEN FRANKS on 05/09/10 150 Omeprazole (Prilosec 20 Mg) 20 Mg Capsule.dr, 20 MG PO DAILY, (Reported) Entered as Reported by: UYEN FRANKS on 05/09/10 150 Oxycodone Hcl/Acetaminophen (Oxycodone W-Apap 5/325 Tablet) 1 Tab Tablet, 1 TAB PO Q4H PRN for PAIN Prescribed by: BARBARA HODGES on 07/27/14 1627 Warfarin Sod (Coumadin 5 Mg) 5 Mg Tab, 5 MG PO DAILY, (Reported) Entered as Reported by: TANIKA GEORGE on 05/12/10 0812 [Maxide 50 Mg] , 50 MG PO DAILY, (Reported) Entered as Reported by: UYEN FRANKS on 05/09/10 1505 [Potassium] , 1 TAB PO DAILY, (Reported) Entered as Reported by: UYEN FRANKS on 05/09/10 1505 Physical Exam-Cardiology Physical Exam Vital Signs/I&O 12/12/21 18:08 Temp 35.6 Pulse 75 Resp 16 B/P (MAP) 177/61 (99) Pulse Ox 92 O2 Delivery Room Air Capillary Refill : Less Than 3 Seconds Data Review Labs Laboratory Tests 12/12/21 18:15: White Blood Count 13.7H, Red Blood Count 5.44H, Hemoglobin 15.1, Hematocrit 47, Mean Corpuscular Volume 87, Mean Corpuscular Hemoglobin 28, Mean Corpuscular Hemoglobin Concent 32, Red Cell Distribution Width 14.1, Platelet Count 417H, Mean Platelet Volume 10.3, Immature Granulocyte % (Auto) 1, Neutrophils (%) (Auto) 77H, Lymphocytes (%) (Auto) 14, Monocytes (%) (Auto) 6, Eosinophils (%) (Auto) 1, Basophils (%) (Auto) 1, Neutrophils # (Auto) 10.5H, Lymphocytes # (Auto) 1.9, Monocytes # (Auto) 0.9, Eosinophils # (Auto) 0.1, Basophils # (Auto) 0.1, Immature Granulocyte # (Auto) 0.1, Prothrombin Time 13.2, INR Comment 1.0, Activated Partial Thromboplast Time 25, Sodium Level 142, Potassium Level 3.8, Chloride Level 105, Carbon Dioxide Level 23, Anion Gap 14, Blood Urea Nitrogen 28H, Creatinine 1.76H, Estimat Glomerular Filtration Rate 29, BUN/Creatinine Ratio 16, Glucose Level 244H, Calcium Level 10.3H, Corrected Calcium 10.1, Magnesium Level 1.6, Total Bilirubin 0.4, Aspartate Amino Transf (AST/SGOT) 26, Alanine Aminotransferase (ALT/SGPT) 18, Alkaline Phosphatase 62, Total Creatine Kinase 100, Creatine Kinase MB 4.8, Myoglobin 193.5H, Troponin I 0.105H, B-Type Natriuretic Peptide 751.2H, Total Protein 8.2, Albumin 4.3, Amylase Level 74, Lipase 84H, Digoxin Level 0.43L A/P-Cardiology Assessment/Admission Diagnosis Acute lateral STEMI Emergency card cath on 12/12/21: LMCA ok; LAD severe mid-vessel and distal-vessel disease that is diffuse and that includes all branches and that is not amenable to intervention; chronic total occlusion of prox/mid LCX (unsuccessful attempt at revasc today); 95% ostial and prox RI that was successfully stented with Skypoint 2.25 x 12 mm stent; dominant RCA that has diffuse mod to mod severe disease; LVEDP 35 mmHg; LVEF 65-70%; very localized and small segment of apical dyskinesis Cervical radiculopathy - managed by PCP Chronic atrial fib - OAC with Eliquis CASTRO treated with CPAP Pulmonary hypertension - Echocardiogram of 07-03-21 showed LVEF 60-65%. Mild MR. Bicuspid morphology of aortic valve can not be excluded. The leaflets are mildly thickened. Mild to mod stenosis. Mild regurg. Mild to mod TR. PASP 50-55mmHg History of multiple recurrent deep venous thrombosis - OAC (see above) Oncology - History of breast cancer treated with left sided mastectomy followed by chemotherapy, currently stated to be in remission. Hyperlipidemia. - statin tx - followed by PCP CKD stage 4 - manged by PCP Borderline DM II - based on blood work of 02/25/18 - followed by PCP Mild hypercalcemia of undetermined etiology for which f/u is with her pcp Admission Status: Inpatient Order (span 2 midnights) Reason for Inpatient Admission: Ac STEMI Discussion and Recomendations * Complex management due to multiple comorbidities and because much of her CAD is not amenable to bypass or PCI * We intervened on the RI that is in the region of the area indicated by the ST elevation on ECG * DAPT has been initiated * Will continue Eliquis because of permanent A Fib * After about a week of DAPT + Eliquis, consider discontinuing ASA while continuing Plavix and Eliquis * Treat with statin * Treat with beta-america * Admit to ICU CHARLENE DOMINGO MD FACP FAC CCDS Dec 12, 2021 20:23
[2021-12-12] MEDS ORDERED: NS IV 1000 ML 1,000 ML IV SCH (20:45)
[2021-12-12] MEDS ORDERED: PATIENT MAY USE OWN MEDS, ALL PO SCH (20:45)
[2021-12-12] MEDS ORDERED: FUROSEMIDE 40 MG/4 ML INJ (LASIX) IVP ONE (21:00)
[2021-12-12] MEDS ORDERED: APIXABAN 2.5 MG (ELIQUIS) TABLET PO SCH (21:00)
[2021-12-12] MEDS ORDERED: FUROSEMIDE 40 MG/4 ML INJ (LASIX) ONE (21:14)
[2021-12-12 22:00] VITALS: BP 141/76
[2021-12-12] MEDS: NS IV 1000 ML 1,000 ML IV SCH (22:14)
[2021-12-12] MEDS ORDERED: meTOproloL SUCCINATE 50 MG (TOPROL XL) TAB PO ONE (22:15)
[2021-12-12] MEDS: MAGNESIUM 1 GM/100 ML IVPB 100 ML IV SCH ×2 (22:27→22:31)
[2021-12-12] MEDS: inSUlin ASPART (NovoLOG) 1 UNIT/0.01 ML (CHARGE PER UNIT) SC SCH (22:27)
[2021-12-12] MEDS: morphine INJ 4 MG/ML 1 ML (VIAL/SYRINGE) IVP PRN (22:31)
[2021-12-12 23:40] VITALS: BP 141/76
[2021-12-13 02:15] VITALS: BP 157/66
--- NOTE | 2021-12-13 02:45 | CARDIAC CATHETERIZATION ---
DATE OF SERVICE: 12/12/2021 CARDIAC CATHETERIZATION AND CORONARY INTERVENTION REPORT The patient is an 81-year-old lady, who presented with acute ST elevation lateral wall myocardial infarction. Symptoms are ongoing. Emergency cardiac catheterization was carried out after having obtained an informed consent. DESCRIPTION OF PROCEDURE: She was brought to the cardiac catheterization laboratory. The right groin was prepared and draped in the usual sterile fashion. Lidocaine 1% was used for local anesthesia. Modified Seldinger technique was used to advance a 5-Emirati sheath in the right femoral artery, 5-Emirati JL4 catheter in the left coronary angiography, 5-Emirati JR4 catheter did not result in selective engagement of the right coronary artery, but provided adequate views of the right coronary. The left circumflex artery was found to be occluded in its proximal to mid portion just following the origin of a high obtuse marginal or a ramus intermedius branch. PERCUTANEOUS INTERVENTION TO THE LEFT CIRCUMFLEX. We removed the diagnostic catheter and proceeded with attempted percutaneous intervention to the occluded left circumflex. We used a 6-Emirati JL4 guide catheter. We used two different wires, including ChoICE floppy and ChoICE PT Graphix wires. We were not able to advance the ChoICE floppy across the lesion. We were able to advance the PT Graphix passed the lesion, but we were not able to see any forward flow at all. It appeared that this is a chronic total occlusion and the wire was not able to establish any antegrade flow. The wire was removed. We then carried out selective angiography of the right coronary artery to make sure that the lesion was not actually in the right coronary artery. We were able to engage it selectively with an AL1 catheter. 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 The right coronary artery was found to be dominant and it does have about 70% mid vessel stenosis, but this does not appear to be the culprit lesion. We then decided to proceed with percutaneous intervention to the ramus intermedius, which was exhibiting 95% stenosis in its ostial and proximal portion. We advanced a JL3.5 guide catheter. We advanced a Choice PT Graphix across the lesion in the ramus intermedius artery and the tip of the wire was placed in the distal vessel. We carried out balloon angioplasty with a 2.0 x 15 mm balloon. We then stented the lesion with a Skypoint 2.25 x 12 mm stent that was deployed at 16 atmospheres. Subsequent angiography revealed residual stenosis at the previous site of approximately 95% stenosis. Flow throughout the vessel is normal. The left anterior descending artery is severely diseased in its mid and distal portion. It is severely diseased and heavily calcified and was of a very small caliber. The vessel is not amenable to bypass surgery or percutaneous intervention. It is possible that this severe LAD disease may have contributed to her myocardial infarction, as well. However, as stated, this vessel does not appear amenable to bypass or percutaneous intervention. Medical therapy will be pursued for this. HEMODYNAMICS: Left ventricular end-diastolic pressure following coronary angiography and coronary intervention was approximately 35 mmHg. There is no significant pressure gradient on pullback across the aortic valve. LEFT VENTRICULAR ANGIOGRAPHY: Left ventricular angiography was carried out in the right anterior oblique projection. This was done after the cautery angiography intervention that had been completed and we used a 6-Emirati pigtail catheter to carry a left heart catheterization and left ventricular angiography. We used only 10 mL of contrast. This was to conserve contrast because of the patient's known chronic kidney disease stage IV. This indicated that the left ventricular systolic function was normal to hyperdynamic. No distinct regional wall motion abnormalities are seen in this view, except for some very localized apical dyskinesis. CONCLUSIONS: 1. Severe multivessel coronary artery disease. The left anterior descending artery is severely diseased and of extremely small caliber in the main vessel and its branches past its mid portion. The vessel is not amenable to surgery or percutaneous intervention. The left circumflex artery is chronically occluded in its proximal midportion. Attempt at opening this was unsuccessful. The ramus intermedius artery had a 95% ostial and proximal stenosis to which successful percutaneous intervention was carried out. Following deployment of Skypoint 2.25 x 12 mm stent, there is 0% residual stenosis. Right coronary artery is dominant and has diffuse moderate disease. In its mid portion, there is 60% to 70% stenosis. The right coronary artery is calcified. 2. Well preserved global left ventricular systolic function with an ejection fraction of 60% to 65%. There appears to be a very localized, small apical dyskinesis. 3. Elevated left ventricular end-diastolic pressure. RECOMMENDATIONS: As stated, the patient has severe multivessel coronary artery disease. The left anterior descending artery disease is the most severe and is extensive and involves all the diagonals and the mid to distal left anterior descending and is not amenable to surgery or intervention. Medical therapy will be pursued for that. We tried to optimize the coronary status as best as we can by carrying out stenting of the ostial portion of a rather large ramus intermedius. The left circumflex artery is occluded chronically in its proximal and mid portion. Right coronary artery has diffuse moderate to moderately severe disease. The patient is being hospitalized to the Intensive Care Unit. Job ID: [id number] DocumentID: [id number] Dictated Date: 12/12/2021 20:15:12 Parking Enforcer Date: 12/13/2021 02:44:35 Dictated By: DELTA FRANKLIN MD, MA, FACP, FACC,
[2021-12-13] MEDS: morphine INJ 4 MG/ML 1 ML (VIAL/SYRINGE) IVP PRN ×3 (02:57→17:53)
[2021-12-13 05:17] LABS: BASOPHILS # (AUTO) 0.1 10^3/uL (0.0-0.1); BASOPHILS % (AUTO) 0 % (0-10); EOSINOPHILS % (AUTO) 0 % (0-10); HEMATOCRIT 47 % (35-52); HEMOGLOBIN 15.1 g/dL (11.5-16.0); LYMPHOCYTES # (AUTO) 0.8 10^3/uL (1.0-4.0); LYMPHOCYTES % (AUTO) 4 % (12-44); MEAN CORPUSCULAR HEMOGLOBIN 28 pg (25-34); MEAN CORPUSCULAR HGB CONC 32 g/dL (32-36); MEAN CORPUSCULAR VOLUME 87 fL (80-99); MEAN PLATELET VOLUME 10.7 fL (9.0-12.2); MONOCYTES # (AUTO) 1.1 10^3/uL (0.0-1.0); MONOCYTES % (AUTO) 5 % (0-12); NEUTROPHILS # (AUTO) 18.8 10^3/uL (1.8-7.8); NEUTROPHILS % (AUTO) 91 % (42-75); PLATELET COUNT 391 10^3/uL (130-400); WHITE BLOOD COUNT 20.8 10^3/uL (4.3-11.0)
[2021-12-13 05:44] LABS: ALBUMIN 3.9 GM/DL (3.2-4.5); POTASSIUM 3.8 MMOL/L (3.6-5.0)
[2021-12-13 05:45] LABS: CALCIUM 9.7 MG/DL (8.5-10.1)
[2021-12-13 05:46] LABS: TOTAL PROTEIN 7.6 GM/DL (6.4-8.2)
[2021-12-13 05:48] LABS: BILIRUBIN,TOTAL 0.3 MG/DL (0.1-1.0)
[2021-12-13] MEDS: inSUlin ASPART (NovoLOG) 1 UNIT/0.01 ML (CHARGE PER UNIT) SC SCH ×4 (05:49→20:50)
[2021-12-13] MEDS: POTASSIUM CL 10MEQ/50ML IVPB 50 ML IV SCH (05:49)
[2021-12-13] MEDS: KCL 20 MEQ TAB (K-DUR) PO SCH (05:49)
[2021-12-13 05:50] LABS: CREATININE SERUM 1.57 MG/DL (0.60-1.30); PHOSPHORUS 5.4 MG/DL (2.3-4.7)
[2021-12-13] MEDS: NS IV 1000 ML 1,000 ML IV SCH ×3 (05:50→20:11)
[2021-12-13 05:53] LABS: MAGNESIUM 2.2 MG/DL (1.6-2.4)
[2021-12-13] MEDS: MAGNESIUM 1 GM/100 ML IVPB 100 ML IV SCH (05:55)
[2021-12-13] MEDS: NITROGLYCERIN 0.4 MG SL TABS BTL 25'S SL PRN ×3 (06:09→07:57)
[2021-12-13] MEDS ORDERED: inSUlin ASPART (NovoLOG) 1 UNIT/0.01 ML (CHARGE PER UNIT) SC SCH (07:00)
[2021-12-13] MEDS: NITRO DRIP 25000 MCG/D5W 250 ML IV SCH (08:18)
[2021-12-13] MEDS: CLOPIDOGREL 75 MG (PLAVIX) TABLET PO SCH (08:19)
[2021-12-13] MEDS: meTOproloL SUCCINATE 50 MG (TOPROL XL) TAB PO SCH (08:19)
[2021-12-13] MEDS ORDERED: FAMOTIDINE 20 MG (PEPCID) TABLET PO SCH (09:00)
[2021-12-13] MEDS: ASPIRIN 81 MG CHEW (CHILDREN'S ASA) PO SCH (09:21)
[2021-12-13] MEDS: ENOXAPARIN 60 MG/0.6 ML (LOVENOX) SYR SC SCH (09:26)
--- NOTE | 2021-12-13 10:12 | Tele-ICU Progress Note ---
Subjective Date Seen by a Provider: Dec 13, 2021 Time Seen by a Provider: 10:11 Subjective/Events-last exam Tele-ICU Physician , Progress Note ) Available chart/ vitals / labs / Images reviewed Video assessment done using teleICU camera, rest of exam as per RN Discussed with RN , EXAM PER RN Events overnight : Afebrile FiO2 - 4l I/O = neg 400 Drips: ntg Pressors: , hemodynamically stable Consultants: nazanin Hospital course: (12/12) 81yF Admit + STEMI, Emergent CC 12/13- on NTG gtt started 12/13 for CP and HTN A/P STEMI. s/p OM1 stented but also noted to have severe mid-LAD and mid/prox LCx disease not ammenable to intervention -LVEF 65-70% - as per cadiology - on NTG gtt started 12/13 for CP Chronic, permanent A Fib -rate controlled - AC lovenox ( [employer] eliquis Hypoxia , suspected pulm edema - diuresis for VO last night , today cards started NS - follow closely Leukocytosis - will check PCT and check UA - off abx now Pulmonary hypertension - Mild to mod TR. PASP 50-55mmHg DM borderline - reported - ISS RENATA - better , s/p contrast - monitor CASTRO - cont home CPAP Cervical radiculopathy - managed by PC History of breast CA -s/p left sided mastectomy , in remission. Lines : periph (Central Line Necessity Reviewed) Flaherty: + OG: Nutrition: Analgesia: Anxiety/ delirium VTE Prophylaxis: bj 60 bid Stress Ulcer Prophylaxis: na Plans in collaboration with bedside consultants and IM MDs. Discussed with RN to reach out if any questions or concerns A total of 34 minutes of critical care time was devoted to this patient today, required to treat and/or prevent further deterioration of critical care condition ( as above) . Sepsis Event Evaluation Height, Weight, BMI Height: 4'9.00" Weight: 142lbs. 0.0oz. [id number]; 29.25 BMI Method:Stated Exam Exam Patient acknowledged, consented, and participated in this virtual visit which was conducted using real time audio/video Vital Signs Date Time Temp Pulse Resp B/P (MAP) Pulse Ox O2 Delivery O2 Flow Rate FiO2 12/13/21 10:00 69 17 136/72 94 Nasal Cannula 4.00 12/13/21 09:00 74 31 146/83 94 Nasal Cannula 4.00 12/13/21 08:18 76 149/81 12/13/21 08:00 78 14 166/77 97 Nasal Cannula 4.00 12/13/21 07:53 36.3 Nasal Cannula 4.00 12/13/21 07:47 36.3 12/13/21 07:00 64 21 147/94 95 High Flow N/C 4.00 12/13/21 07:00 76 12/13/21 06:00 88 21 147/94 95 High Flow N/C 4.00 12/13/21 05:00 73 19 167/78 94 High Flow N/C 4.00 12/13/21 04:00 95 High Flow N/C 4.00 12/13/21 04:00 80 20 140/88 93 High Flow N/C 4.00 12/13/21 03:24 High Flow N/C 4.00 12/13/21 03:00 75 20 132/72 90 High Flow N/C 6.00 12/13/21 03:00 36.4 92 High Flow N/C 6.00 12/13/21 02:15 65 15 98 40.00 12/13/21 02:00 70 19 145/75 98 NIV CPAP 40.00 12/13/21 01:00 69 12/13/21 01:00 62 17 152/77 97 NIV CPAP 40.00 12/13/21 00:00 73 15 148/84 96 NIV CPAP 40.00 12/12/21 23:42 91 NIV CPAP 40 12/12/21 23:00 36.4 NIV CPAP 40.00 12/12/21 23:00 71 18 146/67 89 NIV CPAP 40.00 12/12/21 22:30 87 17 122/60 94 High Flow N/C 6.00 12/12/21 22:00 76 14 93 40.00 12/12/21 22:00 98 18 154/81 90 High Flow N/C 6.00 12/12/21 21:45 87 18 149/70 92 High Flow N/C 6.00 12/12/21 21:30 97 20 129/82 90 High Flow N/C 6.00 12/12/21 21:15 98 17 143/79 93 High Flow N/C 6.00 12/12/21 21:08 98 12/12/21 21:05 36.2 High Flow N/C 6.00 12/12/21 21:05 92 High Flow N/C 6.00 12/12/21 18:58 35.6 80 18 165/92 96 Nasal Cannula 2.00 12/12/21 18:25 98 Nasal Cannula 2.00 12/12/21 18:08 35.6 75 16 177/61 (99) 92 Room Air I & O 12/13/21 07:00 Intake Total 380 ml Output Total 1700 ml Balance -1320 ml Height & Weight Height: 4'9.00" Weight: 142lbs. 0.0oz. [id number]; 29.25 BMI Method:Stated General Appearance: No Apparent Distress, WD/WN, Other (LOOKS UNCOMFORTABLE) Neck: Full Range of Motion, Normal Inspection, Non Tender, Supple; No Carotid Bruit, No JVD Respiratory: No Accessory Muscle Use, No Respiratory Distress, Rales (FAINT RALES IN BASES) Cardiovascular: No JVD, No Murmur, Normal Peripheral Pulses, Irregularly Irregular Capillary Refill: Less Than 3 Seconds Extremity: Normal Capillary Refill, Normal Range of Motion, Non Tender, No Calf Tenderness, Pedal Edema (1+ BILATERAL LOWER LEG EDEMA) Neurologic/Psychiatric: Alert, Oriented x3, No Motor/Sensory Deficits, Normal Mood/Affect, 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
[2021-12-13 13:05] LABS: BILIRUBIN,URINE NEGATIVE (NEGATIVE); CLARITY,URINE CLOUDY; COLOR,URINE YELLOW; GLUCOSE, URINE (UA) NEGATIVE (NEGATIVE); KETONES,URINE NEGATIVE (NEGATIVE); LEUKOCYTE ESTERASE ,URINE NEGATIVE (NEGATIVE); NITRITE,URINE NEGATIVE (NEGATIVE); PROTEIN,URINE 3+ (NEGATIVE)
[2021-12-13 13:13] LABS: BACTERIA,URINE FEW /HPF; SQUAMOUS EPITHELIAL CELL,UR 0-2 /HPF
[2021-12-13] MEDS ORDERED: morphine INJ 4 MG/ML 1 ML (VIAL/SYRINGE) ONE (17:49)
--- NOTE | 2021-12-13 18:50 | Consultation ---
History of Present Illness History of Present Illness Patient Consulted On(coco/time) 12/13/21 18:45 Date Seen by Provider: Dec 13, 2021 Time Seen by Provider: 18:45 History of Present Illness This is a 81 yo female with a history of chronic atrial fibrillation who presented to the emergency room with substernal chest pain. She was found to be having and acute STEMI. She was taken to the cardiac labor commissioner by Dr. Domingo and found to have multivessel CAD most sever in her LAD which was unamenable to stenting. A stent was placed to a large ostial branch. She was also found to have bilateral pulmonary edema vs bilateral infiltrates with an elevated WBC co unt. She is currently on a nitrodrip due ongoing chest pain. She is also requiring 4liters of oxygen. Allergies and Home Medications Allergies Coded Allergies: aspirin (Verified Allergy, Mild, 12/13/21) PT STATES IT "TEARS UP MY STOMACH" Penicillins (Unverified Allergy, Unknown, 07/07/15) Patient Home Medication List Home Medication List Reviewed: Yes Atenolol (Tenormin 50 Mg) 50 Mg Tablet, 50 MG PO DAILY, (Reported) Entered as Reported by: UYEN FRANKS on 05/09/10 1505 Calcium Carbonate/Vitamin D3 (Calcium 600 + D Caplet) 1 Each Tablet, 1 EACH PO TWICE WEEKLY, (Reported) Entered as Reported by: UYEN FRANKS on 05/09/10 1505 Cephalexin Monohydrate (Keflex Cap) 500 Mg Cap, 500 MG PO Q8H Prescribed by: BARBARA HODGES on 07/27/14 1627 Cyclobenzaprine Hcl (Flexeril Tablet) 10 Mg Tablet, 0.5-1 TAB PO Q8H PRN for SPASMS Prescribed by: BARBARA HODGES on 07/27/14 1627 Ezetimibe (Zetia) 10 Mg Tablet, 10 MG PO DAILY, (Reported) Entered as Reported by: UYEN FRANKS on 05/09/10 1505 Fenofibrate (Fenofibrate) 54 Mg Tablet, 54 MG PO TID, (Reported) Entered as Reported by: CLAY CANTU on 09/17/12 1332 Fluticasone/Salmeterol (Advair 250 Mcg/50 Mcg 60's) 1 Disk Inhp, 1 PUFF IH BID PRN, (Reported) Entered as Reported by: UYEN FRANKS on 05/09/10 1505 Montelukast Sodium (Singulair) 10 Mg Tab, 10 MG PO DAILY, (Reported) Entered as Reported by: UYEN FRANKS on 05/09/10 150 Omeprazole (Prilosec 20 Mg) 20 Mg Capsule.dr, 20 MG PO DAILY, (Reported) Entered as Reported by: UYEN FRANKS on 05/09/10 1505 Oxycodone Hcl/Acetaminophen (Oxycodone W-Apap 5/325 Tablet) 1 Tab Tablet, 1 TAB PO Q4H PRN for PAIN Prescribed by: BARBARA HODGES on 07/27/14 1627 Warfarin Sod (Coumadin 5 Mg) 5 Mg Tab, 5 MG PO DAILY, (Reported) Entered as Reported by: TANIKA GEORGE on 05/12/10 0812 [Maxide 50 Mg] , 50 MG PO DAILY, (Reported) Entered as Reported by: UYEN FRANKS on 05/09/10 150 [Potassium] , 1 TAB PO DAILY, (Reported) Entered as Reported by: UYEN FRANKS on 05/09/10 1505 Past Kolrplz-Ssqqhv-Wbbjgm Hx Patient Social History Marrital Status: Employed/Student: retired Tobacco Use?: No Smoking Status: Former Smoker Smokeless Tobacco Frequency: Never a User Use of E-Cig and/or Vaping dev: No Substance use?: No Alcohol Use?: No Pt feels they are or have been: No Immunizations Up To Date Date of Influenza Vaccine: Apr 09, 2014 Hepatitis B: No Date of Pneumonia Vaccine: Apr 09, 2013 Current Status status: No status: No Advance Directives: No Communicates: Verbally Primary Language: Finnish Preferred Spoken Language: Finnish Is interpretation needed?: No Implanted or Applied Medical D: CPAP Past Medical History Surgeries: Breast, Hysterectomy, Joint Replacement, Oophorectomy, Orthopedic, Tonsillectomy Atrial Fibrillation, Chronic Edema/Swelling, High Cholesterol, 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, 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 Sexually Transmitted Disease: No Degenerate Disk Disease, Arthritis, Fractures Diabetes, Non-Insulin dep Breast Did You Recieve Any Treatments: Yes What Type of Treatment Did You: Chemotherapy, Surgical Intervention Blood Disorders: No Family Medical History PAST SURGICAL HISTORY: -BILATERAL KNEE REPLACEMENTS -BILATERAL HIP REPLACEMENTS -RIGHT SHOULDER SURGERY -HYSTERECTOMY/BSO -LEFT MASTECTOMY -TONSILLECTOMY Review of Systems Review of Systems General: Fatigue HEENT: Sinus Congestion Pulmonary: Cough Cardiovascular: Chest Pain, Lt Headedness Gastrointestinal: No: Nausea, Vomiting, Abdominal Pain, Diarrhea, Constipation, Melena, Hematochezia, Other Genitourinary: No Dysuria, No Frequency, No Incontinence, No Hematuria, No Retention, No Other Musculoskeletal: No: other, neck pain, shoulder pain, arm pain, back pain, hand pain, leg pain, foot pain Neurological: Weakness Physical Exam Vital Signs Vital Signs - First Documented 12/12/21 12/12/21 12/12/21 18:08 18:25 23:42 Temp 35.6 Pulse 75 Resp 16 B/P (MAP) 177/61 (99) Pulse Ox 92 O2 Delivery Room Air O2 Flow Rate 2.00 FiO2 40 Capillary Refill : Less Than 3 Seconds Height, Weight, BMI Height: 4'9.00" Weight: 142lbs. 0.0oz. 64.705507wq; 29.25 BMI Method:Stated General Appearance: No Apparent Distress Neck: Supple Respiratory: Lungs Clear Cardiovascular: Systolic Murmur, Gallop/S4, Irregularly Irregular Gastrointestinal: Normal Bowel Sounds, Non Tender, Soft Back: No CVA Tenderness Extremity: Non Tender, No Calf Tenderness, No Pedal Edema Neurologic/Psychiatric: Alert, Oriented x3 Skin: Warm/Dry Comments Laboratory Tests 12/13/21 04:44: White Blood Count 20.8H, Red Blood Count 5.42H, Hemoglobin 15.1, Hematocrit 47, Mean Corpuscular Volume 87, Mean Corpuscular Hemoglobin 28, Mean Corpuscular Hemoglobin Concent 32, Red Cell Distribution Width 14.0, Platelet Count 391, Mean Platelet Volume 10.7, Immature Granulocyte % (Auto) 1, Neutrophils (%) (Auto) 91H, Lymphocytes (%) (Auto) 4L, Monocytes (%) (Auto) 5, Eosinophils (%) (Auto) 0, Basophils (%) (Auto) 0, Neutrophils # (Auto) 18.8H, Lymphocytes # (Auto) 0.8L, Monocytes # (Auto) 1.1H, Eosinophils # (Auto) 0.0, Basophils # (Auto) 0.1, Immature Granulocyte # (Auto) 0.1, Sodium Level 141, Potassium Level 3.8, Chloride Level 101, Carbon Dioxide Level 24, Anion Gap 16H, Blood Urea Nitrogen 28H, Creatinine 1.57H, Estimat Glomerular Filtration Rate 33, BU N/Creatinine Ratio 18, Glucose Level 131H, Mean Blood Glucose [Pending], Hemoglobin A1c [Pending], Calcium Level 9.7, Corrected Calcium 9.8, Phosphorus Level 5.4H, Magnesium Level 2.2, Total Bilirubin 0.3, Aspartate Amino Transf (AST/SGOT) 203H, Alanine Aminotransferase (ALT/SGPT) 43, Alkaline Phosphatase 53, Total Protein 7.6, Albumin 3.9, Triglycerides Level 182H, Cholesterol Level 190, LDL Cholesterol Direct 141H, VLDL Cholesterol 36, HDL Cholesterol 37L, Thyroid Stimulating Hormone (TSH) 2.05 12/13/21 09:40: Procalcitonin 0.14H 12/13/21 10:59: Glucometer 126H 12/13/21 12:25: Urine Color YELLOW, Urine Clarity CLOUDY, Urine pH 5.0, Urine Specific [place] 1.025H, Urine Protein 3+H, Urine Glucose (UA) NEGATIVE, Urine Ketones NEGATIVE, Urine Nitrite NEGATIVE, Urine Bilirubin NEGATIVE, Urine Urobilinogen 0.2, Urine Leukocyte Esterase NEGATIVE, Urine RBC (Auto) 2+H, Urine RBC 10-25H, Urine WBC 5-10H, Urine Squamous Epithelial Cells 0-2, Urine Crystals NONE, Urine Bacteria FEWH, Urine Casts NONE, Urine Mucus NEGATIVE, Urine Culture Indicated YES 12/13/21 16:23: Glucometer 153H Microbiology 12/12/21 MRSA Screen - Final, Complete MRSA not isolated Assessment/Plan Assessment/Plan Admission Dx 1. Acute STEMI with Multivessel CAD--S/P one stent to large ostial branch, medical management, currently on nitro drip 2. Acute Pulmonary Edema--given IV lasix on admission with good diuresis 3. Hypoxia--on 4L NC 4. Chronic Atrial Fibrillation--rate controlled 5. Chronic Renal Failure--monitor BUN/CR post cath and with diuresis 6. Diabetes mellitus II--accuchecks with SSI 7. Leukocytosis with WBCs on UA and possible bilateral infiltrates--Check COVID swab, start rocephin for UTI 8. Hypertension--BP stable, on nitrodrip Clinical Quality Measures AMI/AHF: ASA po Prior to arrival: SILVANO Doss DO Dec 13, 2021 18:50
[2021-12-13] MEDS ORDERED: cefTRIAXone 1 GM PRE-MIX 50 ML IV SCH (19:00)
[2021-12-13] MEDS ORDERED: FUROSEMIDE 40 MG/4 ML INJ (LASIX) IVP NR (19:00)
--- NOTE | 2021-12-13 19:07 | Progress Note - Cardiology ---
Cardiology SOAP Progress Note Subjective: Continues to have cp No palp or syncope or shortness of breath at rest No focal weakness Gen weakness and malaise present Objective: I&O/Vital Signs 12/13/21 12/13/21 12/13/21 12/13/21 07:47 07:53 08:00 08:00 Temp 36.3 36.3 Pulse 78 Resp 14 B/P (MAP) 166/77 Pulse Ox 97 95 O2 Delivery Nasal Cannula Nasal Cannula High Flow N/C O2 Flow Rate 4.00 4.00 4.00 12/13/21 12/13/21 12/13/21 12/13/21 08:18 09:00 10:00 11:00 Pulse 76 74 69 72 Resp 31 17 17 B/P (MAP) 149/81 146/83 136/72 133/84 Pulse Ox 94 94 94 O2 Delivery Nasal Cannula Nasal Cannula Nasal Cannula O2 Flow Rate 4.00 4.00 4.00 12/13/21 12/13/21 12/13/21 12/13/21 12:00 12:00 12:00 13:00 Temp 36.4 Pulse 77 66 Resp 18 19 B/P (MAP) 120/57 127/57 Pulse Ox 94 95 96 O2 Delivery Nasal Cannula High Flow N/C Nasal Cannula O2 Flow Rate 4.00 4.00 4.00 12/13/21 12/13/21 12/13/21 12/13/21 13:00 13:00 14:00 15:00 Pulse 64 87 71 70 Resp 18 22 B/P (MAP) 134/76 121/72 Pulse Ox 94 94 O2 Delivery Nasal Cannula Nasal Cannula O2 Flow Rate 4.00 4.00 12/13/21 12/13/21 12/13/21 12/13/21 16:00 16:00 16:00 17:00 Temp 36.9 Pulse 74 73 Resp 21 20 B/P (MAP) 127/72 137/68 Pulse Ox 92 95 92 O2 Delivery Nasal Cannula High Flow N/C Nasal Cannula O2 Flow Rate 4.00 4.00 4.00 12/13/21 18:00 Pulse 76 Resp 20 B/P (MAP) 130/82 Pulse Ox 94 O2 Delivery Nasal Cannula O2 Flow Rate 4.00 12/13/21 00:00 Intake Total 30 ml Output Total 500 ml Balance -470 ml Weight (Pounds): 142 Weight (Ounces): 0.0 Weight (Calculated Kilograms): 64.505634 Constitutional: AAO x 3, well-developed, well-nourished Respiratory: No accessory muscle use; other (fair to good, bilat air entry) Cardiovascular: irregularly irregular, S1 and S2, systolic murmur (soft JUANITA at card base) Gastrointestional: No tender; soft; No guarding, No rebound; audible bowel sounds Extremities: No clubbing, No cyanosis, No significant edema Neurologic/Psychiatric: other (moves all limbs equally) Skin: No rash on exposed areas, No ulcerations on exposed areas Results/Procedures: Labs Laboratory Tests 12/13/21 04:44: White Blood Count 20.8H, Red Blood Count 5.42H, Hemoglobin 15.1, Hematocrit 47, Mean Corpuscular Volume 87, Mean Corpuscular Hemoglobin 28, Mean Corpuscular Hemoglobin Concent 32, Red Cell Distribution Width 14.0, Platelet Count 391, Me an Platelet Volume 10.7, Immature Granulocyte % (Auto) 1, Neutrophils (%) (Auto) 91H, Lymphocytes (%) (Auto) 4L, Monocytes (%) (Auto) 5, Eosinophils (%) (Auto) 0, Basophils (%) (Auto) 0, Neutrophils # (Auto) 18.8H, Lymphocytes # (Auto) 0.8L , Monocytes # (Auto) 1.1H, Eosinophils # (Auto) 0.0, Basophils # (Auto) 0.1, Immature Granulocyte # (Auto) 0.1, Sodium Level 141, Potassium Level 3.8, Chlo ride Level 101, Carbon Dioxide Level 24, Anion Gap 16H, Blood Urea Nitrogen 28H, Creatinine 1.57H, Estimat Glomerular Filtration Rate 33, BUN/Creatinine Ratio 18, Glucose Level 131H, Calcium Level 9.7, Corrected Calcium 9.8, Phosphorus Level 5.4H, Magnesium Level 2.2, Total Bilirubin 0.3, Aspartate Amino Transf (AST/SGOT) 203H, Alanine Aminotransferase (ALT/SGPT) 43, Alkaline Phosphatase 53, Total Protein 7.6, Albumin 3.9, Triglycerides Level 182H, Cholesterol Level 190, LDL Cholesterol Direct 141H, VLDL Cholesterol 36, HDL Cholesterol 37L, Thyroid Stimulating Hormone (TSH) 2.05 12/13/21 09:40: Procalcitonin 0.14H 12/13/21 10:59: Glucometer 126H 12/13/21 12:25: Urine Color YELLOW, Urine Clarity CLOUDY, Urine pH 5.0, Urine Specific [place] 1.025H, Urine Protein 3+H, Urine Glucose (UA) NEGATIVE, Urine Ketones NEGATIVE, Urine Nitrite NEGATIVE, Urine Bilirubin NEGATIVE, Urine Urobilinogen 0.2, Urine Leukocyte Esterase NEGATIVE, Urine RBC (Auto) 2+H, Urine RBC 10-25H, Urine WBC 5-10H, Urine Squamous Epithelial Cells 0-2, Urine Crystals NONE, Urine Bacteria FEWH, Urine Casts NONE, Urine Mucus NEGATIVE, Urine Culture Indicated YES 12/13/21 16:23: Glucometer 153H Microbiology 12/12/21 MRSA Screen - Final, Complete MRSA not isolated Laboratory Tests 12/12/21 18:15 12/13/21 04:44 A/P: Assessment: Acute lateral STEMI on 12/12/21 - Emergency card cath on 12/12/21: LMCA ok; LAD severe mid-vessel and distal- vessel disease that is diffuse and that includes all branches and that is not amenable to intervention; chronic total occlusion of prox/mid LCX (unsuccessful attempt at revasc today); 95% ostial and prox RI that was successfully stented with Skypoint 2.25 x 12 mm stent; dominant RCA that has diffuse mod to mod severe disease; LVEDP 35 mmHg; LVEF 65-70%; very localized and small segment of apical dyskinesis - Echo on 12/13/21: hypokinesis of basal inferolateral myocardium, LVEF 45-50%, mod MR, grade 3 honeycutt dysfunction of LV, mild to mod TR, mild AI, AoV sclerosis w/o stenosis, PASP 65-70 mmHg Cervical radiculopathy - managed by PCP Chronic atrial fib - OAC with Eliquis CASTRO treated with CPAP Pulmonary hypertension - Echocardiogram of 07-03-21 showed LVEF 60-65%. Mild MR. Bicuspid morphology of aortic valve can not be excluded. The leaflets are mildly thickened. Mild to mod stenosis. Mild regurg. Mild to mod TR. PASP 50-55mmHg History of multiple recurrent deep venous thrombosis - OAC (see above) Oncology - History of breast cancer treated with left sided mastectomy followed by chemotherapy, currently stated to be in remission. Hyperlipidemia. - statin tx - followed by PCP CKD stage 4 - manged by PCP Borderline DM II - based on blood work of 02/25/18 - followed by PCP Mild hypercalcemia of undetermined etiology for which f/u is with her pcp Plan: * Complex management due to multiple comorbidities and because much of her CAD is not amenable to bypass or PCI * We intervened on the RI that is in the region of the area indicated by the ST elevation on ECG * Continue DAPT and Lovenox * NTG and Ranexa for angina * Continue statin * Continue beta-[place] * Monitor labs * Keep in ICU Clinical Quality Measures AMI/AHF: ASA po Prior to arrival: DELTA Chandler MD FACP FAC CCDS Dec 13, 2021 19:07
[2021-12-13] MEDS ORDERED: cefTRIAXone 1,000 MG VIAL ONE (19:56)
[2021-12-13] MEDS ORDERED: NS (IVPB) 50 ML ONE (19:56)
[2021-12-13] MEDS ORDERED: RANOLAZINE ER 500 MG TAB (RANEXA) PO ONE (20:00)
[2021-12-13] MEDS: cefTRIAXone 1 GM PRE-MIX 50 ML IV SCH (20:13)
[2021-12-13] MEDS: RANOLAZINE ER 500 MG TAB (RANEXA) PO SCH (20:16)
[2021-12-13 23:54] VITALS: BP 132/70
[2021-12-14 02:14] VITALS: BP 116/62
[2021-12-14] MEDS: morphine INJ 4 MG/ML 1 ML (VIAL/SYRINGE) IVP PRN ×2 (05:14→17:00)
[2021-12-14 05:58] LABS: BASOPHILS % (AUTO) 0 % (0-10); EOSINOPHILS % (AUTO) 0 % (0-10); HEMATOCRIT 37 % (35-52); HEMOGLOBIN 11.7 g/dL (11.5-16.0); LYMPHOCYTES # (AUTO) 0.7 10^3/uL (1.0-4.0); LYMPHOCYTES % (AUTO) 3 % (12-44); MEAN CORPUSCULAR HEMOGLOBIN 28 pg (25-34); MEAN CORPUSCULAR HGB CONC 32 g/dL (32-36); MEAN CORPUSCULAR VOLUME 87 fL (80-99); MEAN PLATELET VOLUME 11.3 fL (9.0-12.2); MONOCYTES # (AUTO) 1.6 10^3/uL (0.0-1.0); MONOCYTES % (AUTO) 7 % (0-12); NEUTROPHILS # (AUTO) 19.9 10^3/uL (1.8-7.8); NEUTROPHILS % (AUTO) 89 % (42-75); PLATELET COUNT 270 10^3/uL (130-400); WHITE BLOOD COUNT 22.4 10^3/uL (4.3-11.0)
[2021-12-14] MEDS: NS IV 1000 ML 1,000 ML IV SCH ×2 (06:05→15:54)
[2021-12-14 06:21] LABS: ALBUMIN 3.2 GM/DL (3.2-4.5); POTASSIUM 3.3 MMOL/L (3.6-5.0)
[2021-12-14 06:23] LABS: CALCIUM 8.4 MG/DL (8.5-10.1)
[2021-12-14 06:24] LABS: TOTAL PROTEIN 6.1 GM/DL (6.4-8.2)
[2021-12-14] MEDS: KCL 20 MEQ TAB (K-DUR) PO SCH (06:25)
[2021-12-14] MEDS: MAGNESIUM 1 GM/100 ML IVPB 100 ML IV SCH ×3 (06:25→07:43)
[2021-12-14] MEDS: POTASSIUM CL 10MEQ/50ML IVPB 50 ML IV SCH (06:25)
[2021-12-14 06:26] LABS: BILIRUBIN,TOTAL 0.6 MG/DL (0.1-1.0)
[2021-12-14] MEDS: inSUlin ASPART (NovoLOG) 1 UNIT/0.01 ML (CHARGE PER UNIT) SC SCH ×4 (06:26→20:03)
[2021-12-14 06:27] LABS: PHOSPHORUS 4.5 MG/DL (2.3-4.7)
[2021-12-14 06:28] LABS: CREATININE SERUM 1.64 MG/DL (0.60-1.30)
[2021-12-14] MEDS ORDERED: KCL 20 MEQ TAB (K-DUR) PO ONE ×2 (06:30→08:30)
[2021-12-14 06:31] LABS: MAGNESIUM 1.7 MG/DL (1.6-2.4)
[2021-12-14] MEDS ORDERED: MAGNESIUM 1 GM/100 ML IVPB 100 ML IV ONE (06:45)
[2021-12-14] MEDS: NITRO DRIP 25000 MCG/D5W 250 ML IV SCH (07:43)
--- NOTE | 2021-12-14 08:12 | Diagnostic Imaging Report ---
Indication: Hypoxia. Time of Exam: 3:56 AM Correlation is made with prior chest from 12/12/2021. Heart is enlarged and stable. There is infiltrate in the right perihilar region. There may be some infiltrate at the left base as well. No effusion or pneumothorax identified. Central vascularity is prominent. Impression: 1. Continued bilateral infiltrates, mostly in the perihilar region on the right and again possibly owing to congestive failure versus pneumonia. Interstitial markings do appear to be slightly improved when compared with examination from 2 days earlier. Dictated by: Dictated on workstation # [id number]
--- NOTE | 2021-12-14 08:13 | Tele-ICU Progress Note ---
Subjective Date Seen by a Provider: Dec 14, 2021 Time Seen by a Provider: 08:06 Subjective/Events-last exam Available chart/vitals/labs/images reviewed. Video assessment done using telemetry ICU camera, rest of exam as per RN. Discussion with the RN, exam as per RN. Hospital course This patient admitted with STEMI and underwent cardiac catheterization. She is found to have a triple-vessel disease RCA could be stented but LAD and left circumflex arteries are diffusely diseased and a PCI could not be done and also apparently she is not a candidate for CABG. Currently she is on a nitro drip still complaining of chest pain and now increasing nitroglycerin drip from 15 to 20 mcg. RN reports that patient has a low urine output. Patient is getting normal saline at 100 cc/h. We will wait a few more hours to see how she responds with the changes and if needed will intervene with possible Lasix and morphine. 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 0.0oz. 64.837893bd; 30.05 BMI Method:Stated Exam Exam Patient acknowledged, consented, and participated in this virtual visit which was conducted using real time audio/video Vital Signs Date Time Temp Pulse Resp B/P (MAP) Pulse Ox O2 Delivery O2 Flow Rate FiO2 12/14/21 07:43 132/80 12/14/21 07:07 94 Nasal Cannula 4.00 12/14/21 06:00 85 20 140/86 95 Nasal Cannula 4.00 12/14/21 05:12 Nasal Cannula 4.00 12/14/21 05:00 82 20 130/61 97 NIV CPAP 40.00 12/14/21 04:00 83 22 143/65 98 NIV CPAP 40.00 12/14/21 03:12 36.7 NIV CPAP 40.00 12/14/21 03:10 97 NIV CPAP 40 12/14/21 03:00 77 20 118/65 97 NIV CPAP 40.00 12/14/21 02:14 84 21 96 40.00 12/14/21 02:00 86 21 122/63 97 NIV CPAP 40.00 12/14/21 01:00 96 19 114/53 96 NIV CPAP 40.00 12/14/21 01:00 96 12/14/21 00:02 NIV CPAP 40.00 12/14/21 00:00 91 20 121/68 94 Nasal Cannula 4.00 12/13/21 23:54 86 21 94 40.00 12/13/21 23:18 36.8 Nasal Cannula 4.00 12/13/21 23:15 93 Nasal Cannula 4.00 12/13/21 23:00 98 22 119/63 92 Nasal Cannula 4.00 12/13/21 22:00 77 21 138/71 92 Nasal Cannula 4.00 12/13/21 21:00 96 21 139/74 92 Nasal Cannula 4.00 12/13/21 20:00 81 20 148/84 92 Nasal Cannula 4.00 12/13/21 20:00 36.8 12/13/21 20:00 93 Nasal Cannula 4.00 12/13/21 19:00 80 12/13/21 19:00 90 20 134/72 93 Nasal Cannula 4.00 12/13/21 18:00 76 20 130/82 94 Nasal Cannula 4.00 12/13/21 17:00 73 20 137/68 92 Nasal Cannula 4.00 12/13/21 16:00 95 High Flow N/C 4.00 12/13/21 16:00 36.9 12/13/21 16:00 74 21 127/72 92 Nasal Cannula 4.00 12/13/21 15:00 70 22 121/72 94 Nasal Cannula 4.00 12/13/21 14:00 71 18 134/76 94 Nasal Cannula 4.00 12/13/21 13:00 87 12/13/21 13:00 64 12/13/21 13:00 66 19 127/57 96 Nasal Cannula 4.00 12/13/21 12:00 36.4 12/13/21 12:00 95 High Flow N/C 4.00 12/13/21 12:00 77 18 120/57 94 Nasal Cannula 4.00 12/13/21 11:00 72 17 133/84 94 Nasal Cannula 4.00 12/13/21 10:00 69 17 136/72 94 Nasal Cannula 4.00 12/13/21 09:00 74 31 146/83 94 Nasal Cannula 4.00 12/13/21 08:18 76 149/81 I & O 12/14/21 07:00 Intake Total 2585 ml Output Total 1105 ml Balance 1480 ml Height & Weight Height: 4'9.00" Weight: 142lbs. 0.0oz. 64.991235ug; 30.05 BMI Method:Stated General Appearance: No Apparent Distress Neck: Supple Respiratory: Lungs Clear Cardiovascular: Systolic Murmur, Gallop/S4, Irregularly Irregular Capillary Refill: Less Than 3 Seconds Extremity: Non Tender, No Calf Tenderness, No Pedal Edema Neurologic/Psychiatric: Alert, Oriented x3 Skin: Warm/Dry Other comments PE PER RN Results Lab Laboratory Tests 12/12/21 18:15 12/13/21 04:44 12/14/21 05:00 Assessment/Plan Assessment/Plan 1. STEMI 2. History of atrial fibrillation 3. History of breast cancer status post left mastectomy followed by chemotherapy reportedly in remission 4. Hyperlipidemia 5. CKD stage IV 6. Borderline diabetes type 2. Recommendations 1. Continue IV nitroglycerin and IV fluids. 2. If she continues to have chest pain will give prn morphine 3. Otherwise treatment of STEMI per cardiology 4. Continue monitoring BUN/creatinine. 5. DVT prophylaxis and ulcer prophylaxis. 6. BB, plavix, asa per cardiology Critical Care: Critically Ill Patient (20) Time spent with patient (mins): 20 BENY COTTON MD Dec 14, 2021 08:12
[2021-12-14] MEDS: ASPIRIN 81 MG CHEW (CHILDREN'S ASA) PO SCH (08:22)
[2021-12-14] MEDS: CLOPIDOGREL 75 MG (PLAVIX) TABLET PO SCH (08:22)
[2021-12-14] MEDS: RANOLAZINE ER 500 MG TAB (RANEXA) PO SCH ×2 (08:22→20:04)
[2021-12-14] MEDS: meTOproloL SUCCINATE 50 MG (TOPROL XL) TAB PO SCH (08:22)
[2021-12-14] MEDS: ENOXAPARIN 60 MG/0.6 ML (LOVENOX) SYR SC SCH (08:23)
[2021-12-14] MEDS ORDERED: FAMOTIDINE 20 MG (PEPCID) TABLET PO SCH (09:00)
[2021-12-14] MEDS ORDERED: AZITHROMYCIN INJECTION 500 MG in NS (IVPB) 250 ML IV ONE (10:00)
[2021-12-14] MEDS ORDERED: oxyCODONE/APAP 5/325MG (PERCOCET 5) TABLET PO PRN (10:00)
[2021-12-14] MEDS ORDERED: FUROSEMIDE 40 MG/4 ML INJ (LASIX) IVP ONE (10:00)
[2021-12-14] MEDS ORDERED: RANOLAZINE ER 500 MG TAB (RANEXA) PO SCH (10:00)
--- NOTE | 2021-12-14 10:08 | Progress Note ---
Subjective Date Seen by a Provider: Dec 14, 2021 Time Seen by a Provider: 10:01 Subjective/Events-last exam Fwup acute STEMI with multivessel CAD--S/P stent to ostial branch, Hypertension, Chronic Renal Failure, Chronic Atrial Fibrillation, DMII. Still having chest pain despite nitro drip and medical management. Poor oral intake and poor urine output. Objective Exam Vital Signs Date Time Temp Pulse Resp B/P (MAP) Pulse Ox O2 Delivery O2 Flow Rate FiO2 12/14/21 08:31 36.6 12/14/21 08:05 Nasal Cannula 4.00 12/14/21 08:00 77 27 135/77 93 Nasal Cannula 4.00 12/14/21 07:43 132/80 12/14/21 07:07 94 Nasal Cannula 4.00 12/14/21 07:00 80 12/14/21 07:00 74 22 132/66 93 Nasal Cannula 4.00 12/14/21 06:00 85 20 140/86 95 Nasal Cannula 4.00 12/14/21 05:12 Nasal Cannula 4.00 12/14/21 05:00 82 20 130/61 97 NIV CPAP 40.00 12/14/21 04:00 83 22 143/65 98 NIV CPAP 40.00 12/14/21 03:12 36.7 NIV CPAP 40.00 12/14/21 03:10 97 NIV CPAP 40 12/14/21 03:00 77 20 118/65 97 NIV CPAP 40.00 12/14/21 02:14 84 21 96 40.00 12/14/21 02:00 86 21 122/63 97 NIV CPAP 40.00 12/14/21 01:00 96 19 114/53 96 NIV CPAP 40.00 12/14/21 01:00 96 12/14/21 00:02 NIV CPAP 40.00 12/14/21 00:00 91 20 121/68 94 Nasal Cannula 4.00 12/13/21 23:54 86 21 94 40.00 12/13/21 23:18 36.8 Nasal Cannula 4.00 12/13/21 23:15 93 Nasal Cannula 4.00 12/13/21 23:00 98 22 119/63 92 Nasal Cannula 4.00 12/13/21 22:00 77 21 138/71 92 Nasal Cannula 4.00 12/13/21 21:00 96 21 139/74 92 Nasal Cannula 4.00 12/13/21 20:00 81 20 148/84 92 Nasal Cannula 4.00 12/13/21 20:00 36.8 12/13/21 20:00 93 Nasal Cannula 4.00 12/13/21 19:00 80 12/13/21 19:00 90 20 134/72 93 Nasal Cannula 4.00 12/13/21 18:00 76 20 130/82 94 Nasal Cannula 4.00 12/13/21 17:00 73 20 137/68 92 Nasal Cannula 4.00 12/13/21 16:00 95 High Flow N/C 4.00 12/13/21 16:00 36.9 12/13/21 16:00 74 21 127/72 92 Nasal Cannula 4.00 12/13/21 15:00 70 22 121/72 94 Nasal Cannula 4.00 12/13/21 14:00 71 18 134/76 94 Nasal Cannula 4.00 12/13/21 13:00 87 12/13/21 13:00 64 12/13/21 13:00 66 19 127/57 96 Nasal Cannula 4.00 12/13/21 12:00 36.4 12/13/21 12:00 95 High Flow N/C 4.00 12/13/21 12:00 77 18 120/57 94 Nasal Cannula 4.00 12/13/21 11:00 72 17 133/84 94 Nasal Cannula 4.00 I & O 12/14/21 07:00 Intake Total 2585 ml Output Total 1105 ml Balance 1480 ml Capillary Refill : Less Than 3 Seconds General Appearance: Mild Distress Neck: Supple Respiratory: Crackles, Decreased Breath Sounds Cardiovascular: Systolic Murmur, Gallop/S4, Irregularly Irregular Gastrointestinal: normal bowel sounds, non tender, soft Extremity: Non Tender, No Calf Tenderness, No Pedal Edema Neurologic/Psychiatric: Alert, Oriented x3 Skin: Warm/Dry Results Lab Laboratory Tests 12/13/21 10:59: Glucometer 126H 12/13/21 12:25: Urine Color YELLOW, Urine Clarity CLOUDY, Urine pH 5.0, Urine Specific [place] 1.025H, Urine Protein 3+H, Urine Glucose (UA) NEGATIVE, Urine Ketones NEGATIVE, Urine Nitrite NEGATIVE, Urine Bilirubin NEGATIVE, Urine Urobilinogen 0.2, Urine Leukocyte Esterase NEGATIVE, Urine RBC (Auto) 2+H, Urine RBC 10-25H, Urine WBC 5-10H, Urine Squamous Epithelial Cells 0-2, Urine Crystals NONE, Urine Bacteria FEWH, Urine Casts NONE, Urine Mucus NEGATIVE, Urine Culture Indicated YES 12/13/21 16:23: Glucometer 153H 12/13/21 19:16: SARS-CoV-2 RNA (RT-PCR) Not Detected 12/13/21 20:49: Glucometer 151H 12/14/21 05:00: White Blood Count 22.4H, Red Blood Count 4.20, Hemoglobin 11.7#, Hematocrit 37, Mean Corpuscular Volume 87, Mean Corpuscular Hemoglobin 28, Mean Corpuscular Hemoglobin Concent 32, Red Cell Distribution Width 14.5, Platelet Count 270, Mean Platelet Volume 11.3, Immature Granulocyte % (Auto) 1, Neutrophils (%) (Auto) 89H, Lymphocytes (%) (Auto) 3L, Monocytes (%) (Auto) 7, Eosinophils (%) (Auto) 0, Basophils (%) (Auto) 0, Neutrophils # (Auto) 19.9H, Lymphocytes # (Auto) 0.7L, Monocytes # (Auto) 1.6H, Eosinophils # (Auto) 0.0, Basophils # (Auto) 0.0, Immature Granulocyte # (Auto) 0.2H, Sodium Level 136, Potassium Level 3.3L, Chloride Level 103, Carbon Dioxide Level 20L, Anion Gap 13, Blood Urea Nitrogen 27H, Creatinine 1.64H, Estimat Glomerular Filtration Rate 31, BUN/Creatinine Ratio 16, Glucose Level 128H, Calcium Level 8.4L, Corrected Calcium 9.0, Phosphorus Level 4.5, Magnesium Level 1.7, Total Bilirubin 0.6, Aspartate Amino Transf (AST/SGOT) 214H, Alanine Aminotransferase (ALT/SGPT) 49, Alkaline Phosphatase 35L, Total Protein 6.1L, Albumin 3.2 Microbiology 12/12/21 MRSA Screen - Final, Complete MRSA not isolated Assessment/Plan Assessment/Plan Assess & Plan/Chief Complaint 1. Acute STEMI with Multivessel CAD--severe disease in LAD not amenable to angioplasty or stent, stent place to large ostial branch but ongoing chest pain--on nitro drip, plavix, aspirin, will add routine tylenol and oxycodone for prn pain 2. Chronic Atrial Fibrillation--rate controlled 3. Chronic Renal Insufficiency--monitor BUN/Cr--stable post-cath 4. Acute Pulmonary Edema--start daily lasix and monitor response as well as BUN/Cr 5. Leukocytosis--started rocephin last night for UTI, will add zithromax due to possible bilateral infiltrates on CXR in addition to pulmonary edema, up to chair today and start IS 6. Hypokalemia and Hypomagnesemia--on replacement protocols 7. DMII--on accuchecks with SSI Clinical Quality Measures Admission Status Admission Dx 1. Acute STEMI with Multivessel CAD--S/P one stent to large ostial branch, medical management, currently on nitro drip 2. Acute Pulmonary Edema--given IV lasix on admission with good diuresis 3. Hypoxia--on 4L NC 4. Chronic Atrial Fibrillation--rate controlled 5. Chronic Renal Failure--monitor BUN/CR post cath and with diuresis 6. Diabetes mellitus II--accuchecks with SSI 7. Leukocytosis with WBCs on UA and possible bilateral infiltrates--Check COVID swab, start rocephin for UTI 8. Hypertension--BP stable, on nitrodrip AMI/AHF: ASA po Prior to arrival: SILVANO Doss DO Dec 14, 2021 10:08
[2021-12-14] MEDS: ACETAMINOPHEN 325 MG TABLET PO SCH ×2 (11:14→18:17)
[2021-12-14] MEDS ORDERED: NS (IVPB) 250 ML ONE (13:20)
[2021-12-14] MEDS ORDERED: NS (IVPB) 250 ML IV ONE (13:30)
--- NOTE | 2021-12-14 14:18 | Progress Note - Cardiology ---
Cardiology SOAP Progress Note Subjective: Continues with chest pain and gen malaise Does not report palp or syncope No shortness of breath at rest No n/v/d Objective: I&O/Vital Signs 12/14/21 12/14/21 12/14/21 12/14/21 02:14 03:00 03:10 03:12 Temp 36.7 Pulse 84 77 Resp 21 20 B/P (MAP) 118/65 Pulse Ox 96 97 97 O2 Delivery NIV CPAP NIV CPAP NIV CPAP O2 Flow Rate 40.00 40.00 40.00 FiO2 40 12/14/21 12/14/21 12/14/21 12/14/21 04:00 05:00 05:12 06:00 Pulse 83 82 85 Resp 22 20 20 B/P (MAP) 143/65 130/61 140/86 Pulse Ox 98 97 95 O2 Delivery NIV CPAP NIV CPAP Nasal Cannula Nasal Cannula O2 Flow Rate 40.00 40.00 4.00 4.00 12/14/21 12/14/21 12/14/21 12/14/21 07:00 07:00 07:07 07:43 Pulse 74 80 Resp 22 B/P (MAP) 132/66 132/80 Pulse Ox 93 94 O2 Delivery Nasal Cannula Nasal Cannula O2 Flow Rate 4.00 4.00 12/14/21 12/14/21 12/14/21 12/14/21 08:00 08:05 08:31 09:00 Temp 36.6 Pulse 77 80 Resp 22 B/P (MAP) 135/77 144/78 Pulse Ox 93 93 O2 Delivery Nasal Cannula Nasal Cannula Nasal Cannula O2 Flow Rate 4.00 4.00 4.00 12/14/21 12/14/21 12/14/21 12/14/21 10:00 10:44 11:00 11:44 Temp 37.2 Pulse 96 75 Resp 23 B/P (MAP) 117/63 112/64 Pulse Ox 90 93 96 O2 Delivery Nasal Cannula Nasal Cannula Nasal Cannula O2 Flow Rate 4.00 4.00 4.00 12/14/21 12/14/21 12/14/21 12/14/21 12:00 12:15 13:00 13:13 Pulse 82 76 83 Resp 19 18 B/P (MAP) 95/50 97/44 Pulse Ox 96 96 O2 Delivery Nasal Cannula Nasal Cannula Nasal Cannula O2 Flow Rate 4.00 4.00 4.00 12/14/21 14:01 Pulse 76 Resp 18 B/P (MAP) 105/55 Pulse Ox 97 O2 Delivery Nasal Cannula O2 Flow Rate 4.00 12/13/21 23:59 Intake Total 1340 ml Output Total 555 ml Balance 785 ml Weight (Pounds): 142 Weight (Ounces): 0.0 Weight (Calculated Kilograms): [id number] Constitutional: AAO x 3, well-developed, well-nourished Respiratory: No accessory muscle use; other (fair to good, bilat air entry) Cardiovascular: irregularly irregular, S1 and S2, systolic murmur (soft JUANITA at card base) Gastrointestional: No tender; soft; No guarding, No rebound; audible bowel sounds Extremities: No clubbing, No cyanosis, No significant edema Neurologic/Psychiatric: other (moves all limbs equally) Skin: No rash on exposed areas, No ulcerations on exposed areas Results/Procedures: Labs Laboratory Tests 12/13/21 16:23: Glucometer 153H 12/13/21 19:16: SARS-CoV-2 RNA (RT-PCR) Not Detected 12/13/21 20:49: Glucometer 151H 12/14/21 05:00: White Blood Count 22.4H, Red Blood Count 4.20, Hemoglobin 11.7#, Hematocrit 37, Mean Corpuscular Volume 87, Mean Corpuscular Hemoglobin 28, Mean Corpuscular Hemoglobin Concent 32, Red Cell Distribution Width 14.5, Platelet Count 270, Mean Platelet Volume 11.3, Immature Granulocyte % (Auto) 1, Neutrophils (%) (Auto) 89H, Lymphocytes (%) (Auto) 3L, Monocytes (%) (Auto) 7, Eosinophils (%) (Auto) 0, Basophils (%) (Auto) 0, Neutrophils # (Auto) 19.9H, Lymphocytes # (Auto) 0.7L, Monocytes # (Auto) 1.6H, Eosinophils # (Auto) 0.0, Basophils # (Auto) 0.0, Immature Granulocyte # (Auto) 0.2H, Sodium Level 136, Potassium Level 3.3L, Chloride Level 103, Carbon Dioxide Level 20L, Anion Gap 13, Blood Urea Nitrogen 27H, Creatinine 1.64H, Estimat Glomerular Filtration Rate 31, BUN/Creatinine Ratio 16, Glucose Level 128H, Calcium Level 8.4L, Corrected Calcium 9.0, Phosphorus Level 4.5, Magnesium Level 1.7, Total Bilirubin 0.6, Aspartate Amino Transf (AST/SGOT) 214H, Alanine Aminotransferase (ALT/SGPT) 49, Alkaline Phosphatase 35L, Total Protein 6.1L, Albumin 3.2 12/14/21 10:11: Glucometer 167H Microbiology 12/13/21 Urine Culture - Final, Complete NO GROWTH 12/12/21 MRSA Screen - Final, Complete MRSA not isolated Laboratory Tests 12/12/21 18:15 12/13/21 04:44 12/14/21 05:00 A/P: Assessment: Acute lateral STEMI on 12/12/21 - Emergency card cath on 12/12/21: LMCA ok; LAD severe mid-vessel and distal- vessel disease that is diffuse and that includes all branches and that is not amenable to intervention; chronic total occlusion of prox/mid LCX (unsuccessful attempt at revasc today); 95% ostial and prox RI that was successfully stented with Skypoint 2.25 x 12 mm stent; dominant RCA that has diffuse mod to mod severe disease; LVEDP 35 mmHg; LVEF 65-70%; very localized and small segment of apical dyskinesis - Echo on 12/13/21: hypokinesis of basal inferolateral myocardium, LVEF 45-50%, mod MR, grade 3 honeycutt dysfunction of LV, mild to mod TR, mild AI, AoV sclerosis w/o stenosis, PASP 65-70 mmHg Leucocytosis - ?systemic infection - Dr Han managing Hypotension and associated oliguria on 12/14/21: cardiogenic vs septic vs hypovolemic shock Cervical radiculopathy - managed by PCP Chronic atrial fib - OAC with Eliquis CASTRO treated with CPAP Pulmonary hypertension - Echocardiogram of 07-03-21 showed LVEF 60-65%. Mild MR. Bicuspid morphology of aortic valve can not be excluded. The leaflets are mildly thickened. Mild to mod stenosis. Mild regurg. Mild to mod TR. PASP 50-55mmHg History of multiple recurrent deep venous thrombosis - OAC (see above) Oncology - History of breast cancer treated with left sided mastectomy followed by chemotherapy, currently stated to be in remission. Hyperlipidemia. - statin tx - followed by PCP CKD stage 4 - manged by PCP Borderline DM II - based on blood work of 02/25/18 - followed by PCP Mild hypercalcemia of undetermined etiology for which f/u is with her pcp Plan: * Complex management due to multiple comorbidities and because much of her CAD is not amenable to bypass or PCI * We intervened on the RI that is in the region of the area indicated by the ST elevation on ECG * Continue DAPT and Lovenox * NTG and Ranexa for angina, if tolerated * Continue statin, if tolerated * Continue beta-america, if tolerate * Narcotic analgesics for pain, as needed and as tolerated * Treat infection * Support bp: fluids, pressors * Monitor labs * Keep in ICU * Discussed with Dr Han this am * MCFP prognois appears poor Clinical Quality Measures AMI/AHF: ASA po Prior to arrival: DELTA Chandler MD FACP [facility] Dec 14, 2021 14:18
[2021-12-14] MEDS: DOPamine DRIP 250 ML IV SCH (15:11)
--- NOTE | 2021-12-14 16:31 | Diagnostic Imaging Report ---
CLINICAL INDICATION: Confirm PICC line placement. EXAM: Portable chest x-ray, upright view. COMPARISON: Chest x-ray dated 12/14/2021 at 0333 hours. FINDINGS AND IMPRESSION: 1: There is interval placement of right PICC line with tip overlying the expected region of the mid to distal superior vena cava. 2: There is improved aeration of the right perihilar region. 3: The remainder of this exam shows no significant interval change compared to the prior study of comparison. Dictated by: Dictated on workstation # [id number]
[2021-12-14 16:43] LABS: POTASSIUM 4.6 MMOL/L (3.6-5.0)
[2021-12-14 16:44] LABS: CALCIUM 8.2 MG/DL (8.5-10.1)
[2021-12-14 16:49] LABS: CREATININE SERUM 2.11 MG/DL (0.60-1.30)
[2021-12-14 16:50] LABS: ABG BASE EXCESS -4.9 MMOL/L (-2.5-2.5); ABG OXYGEN SATURATION 87 % (94-100); ABG PCO2 37 MMHG (35-45); ABG PO2 54 MMHG (79-93); ABG TCO2 21.2 MMOL/L (21.0-31.0)
[2021-12-14 16:53] LABS: ABG PH 7.34 (7.37-7.43); ALLENS TEST YES-POS
[2021-12-14 16:54] LABS: INSPIRED O2 4 L; PATIENT TEMP 36; VENTILATOR NO
[2021-12-14] MEDS: cefTRIAXone 1 GM PRE-MIX 50 ML IV SCH (18:22)
[2021-12-14] MEDS ORDERED: FUROSEMIDE 40 MG/4 ML INJ (LASIX) ONE (18:25)
--- NOTE | 2021-12-14 18:26 | Tele-ICU Progress Note ---
Progress Note Patient this evening developed oliguria. She also has a hypotension requiring dopamine. Bladder scan did not reveal any retention of urine. Reviewing her creatinine it shows it is slowly increasing and it is the highest after 2.11. It looks like patient developing ATN due to contrast and also low cardiac output. At this point we will minimize the fluids and give additional diuretic therapy and a white the development and improvement of the ATN over the next 5 to 7 days. Meanwhile we will support her oxygenation with a nasal cannula/BiPAP as needed. I have discussed my recommendations with the Dr. Domingo, , the sanding machine operator or tender. He is in agreement. Her prognosis overall is poor. Focused Exam Height, Weight, BMI Height: 4'9.00" Weight: 142lbs. 0.0oz. 64.005500sy; 30.05 BMI Method:Stated BENY COTTON MD Dec 14, 2021 18:26
[2021-12-14] MEDS ORDERED: FUROSEMIDE 40 MG/4 ML INJ (LASIX) IVP NR (18:30)
[2021-12-14] MEDS ORDERED: BUMETANIDE 1 MG/4 ML (BUMEX) VIAL IV NR (18:30)
[2021-12-14] MEDS: FAMOTIDINE 20 MG (PEPCID) TABLET PO SCH (20:04)
[2021-12-14] MEDS ORDERED: ONDANSETRON 4 MG/2 ML (SDV) Z0FRAN IVP ONE (21:15)
[2021-12-14] MEDS ORDERED: SODIUM BICARB 8.4% 50 MEQ/50 ML (ABBOTT) SYR IV ONE (21:15)
[2021-12-14] MEDS ORDERED: ONDANSETRON 4 MG/2 ML (SDV) Z0FRAN ONE (21:24)
[2021-12-14] MEDS ORDERED: SODIUM BICARB 8.4% 50 MEQ/50 ML (ABBOTT) SYR ONE (21:25)
--- NOTE | 2021-12-14 21:56 | Diagnostic Imaging Report ---
INDICATION: Evaluate PICC line placement. COMPARISON: Prior examination from 12/14/2021 at 4:07 PM. This was done on same day at 9:38 PM. FINDINGS: The PICC line is in the mid right subclavian vein. There is cardiomegaly and some venous congestion. No pleural effusion or pneumothorax. The mediastinum is unremarkable. IMPRESSION: 1. The right upper extremity PICC line has its tip in the mid right subclavian vein. 2. Cardiomegaly and some central pulmonary venous congestion. Dictated by: Dictated on workstation # [id number]
[2021-12-14 22:28] LABS: POTASSIUM 4.5 MMOL/L (3.6-5.0)
[2021-12-14 22:29] LABS: CALCIUM 8.9 MG/DL (8.5-10.1)
[2021-12-14 22:33] LABS: CREATININE SERUM 2.26 MG/DL (0.60-1.30)
[2021-12-14 22:36] LABS: MAGNESIUM 2.5 MG/DL (1.6-2.4)
[2021-12-15] MEDS: ACETAMINOPHEN 325 MG TABLET PO SCH ×3 (00:05→12:34)
[2021-12-15] MEDS: MAGNESIUM 1 GM/100 ML IVPB 100 ML IV SCH (05:48)
[2021-12-15] MEDS: POTASSIUM CL 10MEQ/50ML IVPB 50 ML IV SCH (05:48)
[2021-12-15] MEDS: KCL 20 MEQ TAB (K-DUR) PO SCH (05:49)
[2021-12-15] MEDS: inSUlin ASPART (NovoLOG) 1 UNIT/0.01 ML (CHARGE PER UNIT) SC SCH ×2 (05:56→10:56)
[2021-12-15 05:58] LABS: BASOPHILS # (AUTO) 0.1 10^3/uL (0.0-0.1); BASOPHILS % (AUTO) 0 % (0-10); EOSINOPHILS % (AUTO) 0 % (0-10); HEMATOCRIT 39 % (35-52); HEMOGLOBIN 12.3 g/dL (11.5-16.0); LYMPHOCYTES % (AUTO) 4 % (12-44); MEAN CORPUSCULAR HEMOGLOBIN 28 pg (25-34); MEAN CORPUSCULAR HGB CONC 32 g/dL (32-36); MEAN CORPUSCULAR VOLUME 88 fL (80-99); MEAN PLATELET VOLUME 11.3 fL (9.0-12.2); MONOCYTES # (AUTO) 2.2 10^3/uL (0.0-1.0); MONOCYTES % (AUTO) 8 % (0-12); NEUTROPHILS # (AUTO) 22.8 10^3/uL (1.8-7.8); NEUTROPHILS % (AUTO) 87 % (42-75); PLATELET COUNT 298 10^3/uL (130-400); WHITE BLOOD COUNT 26.2 10^3/uL (4.3-11.0)
[2021-12-15 06:31] LABS: ALBUMIN 3.3 GM/DL (3.2-4.5); POTASSIUM 4.3 MMOL/L (3.6-5.0)
[2021-12-15 06:32] LABS: CALCIUM 8.9 MG/DL (8.5-10.1)
[2021-12-15 06:34] LABS: TOTAL PROTEIN 6.8 GM/DL (6.4-8.2)
[2021-12-15 06:35] LABS: BAND NEUTROPHILS 1 %; BILIRUBIN,TOTAL 0.7 MG/DL (0.1-1.0); LYMPHOCYTES % (MANUAL) 4 %; MONOCYTES % (MANUAL) 8 %; NEUTROPHILS % (MANUAL) 87 %
[2021-12-15 06:36] LABS: TOXIC GRANULATION/VACUOLAZATIO 1+
[2021-12-15 06:37] LABS: CREATININE SERUM 2.31 MG/DL (0.60-1.30); PHOSPHORUS 4.2 MG/DL (2.3-4.7)
[2021-12-15 06:41] LABS: MAGNESIUM 2.4 MG/DL (1.6-2.4)
[2021-12-15] MEDS ORDERED: KCL 20 MEQ TAB (K-DUR) PO SCH (07:00)
--- NOTE | 2021-12-15 07:27 | Progress Note ---
Subjective Subjective Date Seen by Provider: Dec 15, 2021 Time Seen by Provider: 06:44 Sydney Garcias is an 81y/o F being seen for follow up due to STEMI. Pt was in bed and asleep when I entered the room. Was able to awake but she appeared tired. Reports that she feels sore this morning and has some chest pain. She states that she has a slight cough but denies any SOB. Did vomit once of the course of the night. Denies any nausea at the moment. Says that she has been trying to drink water. Review of Systems General: No Chills; Fatigue HEENT: No Head Aches, No Visual Changes Pulmonary: No Dyspnea; Cough Cardiovascular: Chest Pain; No: Palpitations Gastrointestinal: Vomiting (once in the night); No: Nausea, Abdominal Pain Genitourinary: No Dysuria, No Frequency, No Incontinence Musculoskeletal: No: other, neck pain, shoulder pain, arm pain, back pain, hand pain, leg pain, foot pain Neurological: Weakness; No: Numbness Objective Exam Vital Signs Vital Signs Date Time Temp Pulse Resp B/P (MAP) Pulse Ox O2 Delivery O2 Flow Rate FiO2 12/15/21 06:09 12/15/21 06:00 92 26 86/58 92 Nasal Cannula 5.00 12/15/21 05:00 108 25 102/74 91 Nasal Cannula 5.00 12/15/21 04:00 112 16 102/63 92 Nasal Cannula 5.00 12/15/21 03:50 94 Nasal Cannula 5.00 12/15/21 03:50 36.2 Nasal Cannula 5.00 12/15/21 03:00 92 19 94/72 93 Nasal Cannula 6.00 12/15/21 02:00 96 20 115/74 94 Nasal Cannula 6.00 12/15/21 01:00 94 12/15/21 01:00 94 15 100/61 94 Nasal Cannula 6.00 12/15/21 00:00 95 17 113/77 94 Nasal Cannula 6.00 12/14/21 23:30 93 Nasal Cannula 6.00 12/14/21 23:10 36.4 Nasal Cannula 6.00 12/14/21 23:00 105 18 113/93 93 Nasal Cannula 6.00 12/14/21 22:00 116 19 131/70 92 Nasal Cannula 6.00 12/14/21 21:00 109 12 102/82 92 Nasal Cannula 6.00 12/14/21 20:00 110 17 132/63 95 Nasal Cannula 6.00 12/14/21 19:15 95 Nasal Cannula 6.00 12/14/21 19:00 104 12/14/21 19:00 36.2 96 14 99/57 93 Nasal Cannula 6.00 12/14/21 18:00 95 19 108/64 90 Nasal Cannula 6.00 12/14/21 17:00 88 19 101/65 90 Nasal Cannula 6.00 12/14/21 16:48 36.0 91 Nasal Cannula 5.00 12/14/21 16:00 79 19 113/56 91 Nasal Cannula 4.00 12/14/21 15:48 Nasal Cannula 4.00 12/14/21 15:11 81/43 12/14/21 15:00 84 19 89/59 95 Nasal Cannula 4.00 12/14/21 14:34 95 Nasal Cannula 4.00 12/14/21 14:01 76 18 105/55 97 Nasal Cannula 4.00 12/14/21 13:13 83 12/14/21 13:00 76 18 97/44 96 Nasal Cannula 4.00 12/14/21 12:15 Nasal Cannula 4.00 12/14/21 12:00 82 19 95/50 96 Nasal Cannula 4.00 12/14/21 11:44 37.2 12/14/21 11:00 75 23 112/64 96 Nasal Cannula 4.00 12/14/21 10:44 93 Nasal Cannula 4.00 12/14/21 10:00 96 26 117/63 90 Nasal Cannula 4.00 12/14/21 09:00 80 22 144/78 93 Nasal Cannula 4.00 12/14/21 08:31 36.6 12/14/21 08:05 Nasal Cannula 4.00 12/14/21 08:00 77 27 135/77 93 Nasal Cannula 4.00 12/14/21 07:43 132/80 I & O 12/15/21 06:59 Intake Total 1400 ml Output Total 450 ml Balance 950 ml General Appearance: No Apparent Distress, Other (fatigued) HEENT: PERRL/EOMI; No Photophobia Neck: Non Tender, Supple Respiratory: Lungs Clear, Crackles, Decreased Breath Sounds Cardiovascular: No Normal Peripheral Pulses (peripheral pulses 1/4 in all extremities); Systolic Murmur, Irregularly Irregular, Tachycardia Gastrointestinal: Soft, Tenderness (RLQ and LLQ) Extremity: Normal Capillary Refill, Non Tender, No Calf Tenderness, No Pedal Edema Neurologic/Psychiatric: Alert, Oriented x3 Skin: Cool (in extremities ) Lymphatic: No Adenopathy Results Lab Laboratory Tests 12/14/21 10:11: Glucometer 167H 12/14/21 16:25: Sodium Level 135, Potassium Level 4.6, Chloride Level 105, Carbon Dioxide Level 19L, Anion Gap 11, Blood Urea Nitrogen 32H, Creatinine 2.11H, Estimat Glomerular Filtration Rate 23, BUN/Creatinine Ratio 15, Glucose Level 148H, Calcium Level 8.2L 12/14/21 16:44: Blood Gas Puncture Site L BRACHIAL, Blood Gas Patient Temperature 36, Arterial Blood pH 7.34*L, Arterial Blood Partial Pressure CO2 37, Arterial Blood Partial Pressure O2 54L, Arterial Blood HCO3 20L, Arterial Blood Total CO2 21.2, Arterial Blood Oxygen Saturation 87L, Arterial Blood Base Excess -4.9L, Rafa Test YES-POS, Blood Gas Ventilator Setting NO, Blood Gas Inspired Oxygen 4 L 12/14/21 16:46: Glucometer 159H 12/14/21 22:04: Sodium Level 140, Potassium Level 4.5, Chloride Level 103, Carbon Dioxide Level 21, Anion Gap 16H, Blood Urea Nitrogen 34H, Creatinine 2.26H, Estimat Glomerular Filtration Rate 21, BUN/Creatinine Ratio 15, Glucose Level 153H, Calcium Level 8.9, Magnesium Level 2.5H 12/15/21 04:57: Sodium Level 139, Potassium Level 4.3, Chloride Level 106, Carbon Dioxide Level 19L, Anion Gap 14, Blood Urea Nitrogen 37H, Creatinine 2.31H, Estimat Glomerular Filtration Rate 21, BUN/Creatinine Ratio 16, Glucose Level 120H, Calcium Level 8.9, Magnesium Level 2.4, White Blood Count 26.2H, Red Blood Count 4.40, Hemoglobin 12.3, Hematocrit 39, Mean Corpuscular Volume 88, Mean Corpuscular Hemoglobin 28, Mean Corpuscular Hemoglobin Concent 32, Red Cell Distribution Width 14.5, Platelet Count 298, Mean Platelet Volume 11.3, Immature Granulocyte % (Auto) 1, Neutrophils (%) (Auto) 87H, Lymphocytes (%) (Auto) 4L, Monocytes (%) (Auto) 8, Eosinophils (%) (Auto) 0, Basophils (%) (Auto) 0, Neutrophils # (Auto) 22.8H, Lymphocytes # (Auto) 1.0, Monocytes # (Auto) 2.2H, Eosinophils # (Auto) 0.0, Basophils # (Auto) 0.1, Immature Granulocyte # (Auto) 0.3H, Neutrophils % (Manual) 87, Lymphocytes % (Manual) 4, Monocytes % (Manual) 8, Band Neutrophils 1, Toxic Granulation 1+, Corrected Calcium 9.5, Phosphorus Level 4.2, Total Bilirubin 0.7, Aspartate Amino Transf (AST/SGOT) 117H, Alanine Aminotransferase (ALT/SGPT) 49, Alkaline Phosphatase 46, Total Protein 6.8, Albumin 3.3 12/15/21 05:55: Glucometer 127H Microbiology 12/13/21 Urine Culture - Final, Complete NO GROWTH 12/12/21 MRSA Screen - Final, Complete MRSA not isolated Assessment/Plan Assessment/Plan Assessment and Plan Acute STEMI with Multivessel CAD -severe disease in LAD not amenable to angioplasty or stent, stent place to large ostial branch but ongoing chest pain--on nitro drip, plavix, aspirin, will add routine tylenol and oxycodone for prn pain -started on dopamine drip -followed by eICU and cardiology -according to documentation from both her prognosis is poor Chronic Atrial Fibrillation -rate controlled on metoprolol, slightly tachycardic this morning w/ HR of 108 on last check -anticoagulation w/ Lovenox 60mg Acute on chronic kidney disease -BUN was 37 and creatinine was 2.31 today. Up from BUN of 34 and creatinine of 2.26 yesterday -calculated urine output was 0.6mL/kg/hr this morning. Pt did receive 80mg of Lasix and is scheduled for 40mg this morning Acute Pulmonary Edema -started daily lasix and monitor response as well as BUN/Cr Leukocytosis -started rocephin on day 3/5, zithromax day 25 due to possible bilateral in filtrates on CXR in addition to pulmonary edema -WBC increased to 26.2 today, up from 22.4 yesterday Hypokalemia and Hypomagnesemia(improving) -on replacement protocols -potassium of 4.3 today and magnesium is 2.4 DMII -on accuchecks with SSI Clinical Quality Measures AMI/AHF: ASA po Prior to arrival: No Supervisory-Addendum Brief Verification & Attestation Participated in pt care: history, MDM, physical Personally performed: exam, history, MDM, supervision of care Care discussed with: Medical Student Procedures: n/a Results interpretation: Verified all documentation AGREE WITH STUDENT NOTE - EXCEPT PLANNING ON PATIENT TO BE TRANSFERRED TO [facility] - SEE DISCHARGE NOTE HILDA HART Dec 15, 2021 07:27 KRIS FERRER MD Dec 15, 2021 10:39
[2021-12-15] MEDS: meTOproloL SUCCINATE 50 MG (TOPROL XL) TAB PO SCH (07:48)
[2021-12-15] MEDS: FAMOTIDINE 20 MG (PEPCID) TABLET PO SCH (08:05)
[2021-12-15] MEDS: ASPIRIN 81 MG CHEW (CHILDREN'S ASA) PO SCH (08:05)
[2021-12-15] MEDS: RANOLAZINE ER 500 MG TAB (RANEXA) PO SCH (08:06)
[2021-12-15] MEDS: CLOPIDOGREL 75 MG (PLAVIX) TABLET PO SCH (08:06)
[2021-12-15] MEDS: ENOXAPARIN 60 MG/0.6 ML (LOVENOX) SYR SC SCH (08:06)
[2021-12-15 08:07] VITALS: BP 95/85
[2021-12-15] MEDS: DOPamine DRIP 250 ML IV SCH (08:07)
[2021-12-15] MEDS: NS IV 1000 ML 1,000 ML IV SCH (08:07)
--- NOTE | 2021-12-15 08:42 | Tele-ICU Progress Note ---
Subjective Date Seen by a Provider: Dec 15, 2021 Time Seen by a Provider: 07:00 Subjective/Events-last exam This virtual visit was conducted using real time audio/video. Thank you for asking us to see this patient for respiratory insufficiency due to pulmonary congestion, probable undiagnosed COPD. Admitted w STEMI, S/P PCI, other CAD not amenable to stent or CABG Recent events: oliguria, low BP on Dopamine 10 SH: smoking history: former. PE: VSS. O2 sat 94% on 6 LPM NC. HEENT: No obvious masses, adenopathy or JVD. Chest: clear to auscultation. CV: Irreg. S1 S2 systolic murmur. Abd: Non-tender today. Bowel sounds Y. : Unremarkable. Flaherty Y. SHEET ROCK LAYER/psychiatric: Grossly intact. No obvious focal findings. Extremities: No edema. Capillary refill < 3 seconds. Skin: unremarkable. Results: Elevated WCC 26.2, BUN 37, Creat 2.31, BG 127. AB.34/37/54 on 4 LPM. CXR: cardiomeg., congestion, hyperinflated erwin. Available chart/ vitals / labs / images reviewed. Video assessment done using teleICU camera, rest of exam as per RN. A/P: Respiratory insufficiency: Continue present management with O2. Add PRN Duonebs. Monitor for increasing oxygenation needs and/or need for intubation. Critical Care: critically ill patient. Cont. BB, plavix, lasix, abx, statin, ASA, Pepcid, Montse and Dopamine. Consider discussion re possible need for dialysis. Discussed with ERICKSON Rice. Asked RN to reach out to eICU if any questions or concerns later. Time spent with patient/coordination of care with other health professionals (mins): 25 Sepsis Event Evaluation Height, Weight, BMI Height: 4'9.00" Weight: 142lbs. 0.0oz. [id number]; 31.62 BMI Method:Stated Exam Exam Patient acknowledged, consented, and participated in this virtual visit which was conducted using real time audio/video Vital Signs Date Time Temp Pulse Resp B/P (MAP) Pulse Ox O2 Delivery O2 Flow Rate FiO2 12/15/21 08:23 91 Nasal Cannula 5.00 12/15/21 08:07 106 95/85 12/15/21 08:00 90 24 95/85 90 Nasal Cannula 5.00 12/15/21 08:00 36.7 12/15/21 07:21 97 12/15/21 07:00 96 16 103/74 91 Nasal Cannula 5.00 12/15/21 06:09 12/15/21 06:00 92 26 86/58 92 Nasal Cannula 5.00 12/15/21 05:00 108 25 102/74 91 Nasal Cannula 5.00 12/15/21 04:00 112 16 102/63 92 Nasal Cannula 5.00 12/15/21 03:50 94 Nasal Cannula 5.00 12/15/21 03:50 36.2 Nasal Cannula 5.00 12/15/21 03:00 92 19 94/72 93 Nasal Cannula 6.00 12/15/21 02:00 96 20 115/74 94 Nasal Cannula 6.00 12/15/21 01:00 94 12/15/21 01:00 94 15 100/61 94 Nasal Cannula 6.00 12/15/21 00:00 95 17 113/77 94 Nasal Cannula 6.00 12/14/21 23:30 93 Nasal Cannula 6.00 12/14/21 23:10 36.4 Nasal Cannula 6.00 12/14/21 23:00 105 18 113/93 93 Nasal Cannula 6.00 12/14/21 22:00 116 19 131/70 92 Nasal Cannula 6.00 12/14/21 21:00 109 12 102/82 92 Nasal Cannula 6.00 12/14/21 20:00 110 17 132/63 95 Nasal Cannula 6.00 12/14/21 19:15 95 Nasal Cannula 6.00 12/14/21 19:00 104 12/14/21 19:00 36.2 96 14 99/57 93 Nasal Cannula 6.00 12/14/21 18:00 95 19 108/64 90 Nasal Cannula 6.00 12/14/21 17:00 88 19 101/65 90 Nasal Cannula 6.00 12/14/21 16:48 36.0 91 Nasal Cannula 5.00 12/14/21 16:00 79 19 113/56 91 Nasal Cannula 4.00 12/14/21 15:48 Nasal Cannula 4.00 12/14/21 15:11 81/43 12/14/21 15:00 84 19 89/59 95 Nasal Cannula 4.00 12/14/21 14:34 95 Nasal Cannula 4.00 12/14/21 14:01 76 18 105/55 97 Nasal Cannula 4.00 12/14/21 13:13 83 12/14/21 13:00 76 18 97/44 96 Nasal Cannula 4.00 12/14/21 12:15 Nasal Cannula 4.00 12/14/21 12:00 82 19 95/50 96 Nasal Cannula 4.00 12/14/21 11:44 37.2 12/14/21 11:00 75 23 112/64 96 Nasal Cannula 4.00 12/14/21 10:44 93 Nasal Cannula 4.00 12/14/21 10:00 96 26 117/63 90 Nasal Cannula 4.00 12/14/21 09:00 80 22 144/78 93 Nasal Cannula 4.00 I & O 12/15/21 07:00 Intake Total 1400 ml Output Total 450 ml Balance 950 ml Height & Weight Height: 4'9.00" Weight: 142lbs. 0.0oz. 64.842844sv; 31.62 BMI Method:Stated General Appearance: No Apparent Distress, Other (fatigued) HEENT: PERRL/EOMI; No Photophobia Neck: Non Tender, Supple Respiratory: Lungs Clear, Normal Breath Sounds Cardiovascular: No Normal Peripheral Pulses (peripheral pulses 1/4 in all extremities); Systolic Murmur, Irregularly Irregular, Tachycardia Capillary Refill: Less Than 3 Seconds Gastrointestinal: normal bowel sounds, non tender, soft Extremity: Normal Capillary Refill, Non Tender, No Calf Tenderness, No Pedal Edema Neurologic/Psychiatric: Alert, Oriented x3 Skin: Cool (in extremities ) Lymphatic: No Adenopathy Results Lab Laboratory Tests 12/14/21 05:00 12/14/21 16:25 12/14/21 22:04 12/15/21 04:57 Assessment/Plan Assessment/Plan See free text. Critical Care: Critically Ill Patient KIRAN ANDERS MD Dec 15, 2021 08:42
[2021-12-15] MEDS ORDERED: AZITHROMYCIN 250 MG TAB (ZITHROMAX) PO SCH (09:00)
[2021-12-15] MEDS ORDERED: FUROSEMIDE 40 MG/4 ML INJ (LASIX) IVP SCH (09:00)
[2021-12-15] MEDS ORDERED: RT-ALBUTEROL/IPRATROPIUM 3 ML (DUONEB) VIAL INH PRN (09:15)
--- NOTE | 2021-12-15 10:06 | Discharge Summary ---
Diagnosis/Chief Complaint Date of Admission Dec 12, 2021 at 20:41 Date of Discharge Discharge Date: Dec 15, 2021 Discharge Time: 11:00 Admission Diagnosis Admission Diagnosis STEMI SEVERE CORONARY ARTERY DISEASE PULMONARY HYPERTENSION ACUTE ON CHRONIC RENAL FAILURE LEUKOCYTOSIS HYPOTENSION SHOCK (CARDIOGENIC VS HYPOVOLEMIC VS SEPSIS) CHRONIC ATRIAL FIBRILLATION (RATE CONTROLLED) SLEEP APNEA HYPERLIPIDEMIA DIABETES MELLITUS PMHX: BREAST CANCER DVT'S Discharge Diagnosis STEMI SEVERE CORONARY ARTERY DISEASE PULMONARY HYPERTENSION ACUTE ON CHRONIC RENAL FAILURE LEUKOCYTOSIS HYPOTENSION SHOCK (CARDIOGENIC VS HYPOVOLEMIC VS SEPSIS) CHRONIC ATRIAL FIBRILLATION (RATE CONTROLLED) SLEEP APNEA HYPERLIPIDEMIA DIABETES MELLITUS PMHX: BREAST CANCER DVT'S Reason Hospital Visit 81 yo woman w/ h/o chronic, permanent A Fib who presented with 6 hours of chest pain: midsternal, pressure-like, mod to severe, associated with nausea and a feeling of shortness of breath, nonradiating, not experienced before, improved with narcotic analgesic in ER. No recent fever, chills, palp or syncope. Nausea present intermittently but no vomiting or diarrhea Discharge Summary Procedures: HEART CATH Consultations EICU - CRITICAL CARE CARDIOLOGY - DR. FRANKLIN Discharge Physical Examination Allergies: Coded Allergies: aspirin (Verified Allergy, Mild, 12/13/21) PT STATES IT "TEARS UP MY STOMACH" Penicillins (Unverified Allergy, Unknown, 07/07/15) Vitals & I&Os Vital Signs Date Time Temp Pulse Resp B/P (MAP) Pulse Ox O2 Delivery O2 Flow Rate FiO2 12/15/21 10:00 116 24 104/43 90 Nasal Cannula 5.00 12/15/21 08:00 36.7 12/14/21 03:10 40 General Appearance: Alert, Oriented X3, Cooperative, Mild Distress HEENT: Atraumatic, PERRLA Respiratory: Other (CRACKLES THROUGHOUT) Cardiovascular: Other (ATRIAL FIBRILLATION RATE CONTROLLED) Abdominal: Normal Bowel Sounds, Soft, No Tenderness Extremities: No Clubbing, No Cyanosis Skin: No Rashes Neuro: Normal Speech Psych/Mental Status: Mental Status NL, Mood NL Hospital Course Was the Problem List Reviewed?: Yes STEMI SEVERE CORONARY ARTERY DISEASE PULMONARY HYPERTENSION ACUTE ON CHRONIC RENAL FAILURE LEUKOCYTOSIS HYPOTENSION SHOCK (CARDIOGENIC VS HYPOVOLEMIC VS SEPSIS) CHRONIC ATRIAL FIBRILLATION (RATE CONTROLLED) SLEEP APNEA HYPERLIPIDEMIA DIABETES MELLITUS PMHX: BREAST CANCER DVT'S STEMI WITH OCCLUSION OF LAD, SEVERE CORONARY ARTERY DISEASE AND PULMONARY HYPERTENSION EXCERPT FROM CATH NOTE FOLLOWS FROM [facility] - DR. FRANKLIN: Acute lateral STEMI on 12/12/21 - Emergency card cath on 12/12/21: LMCA ok; LAD severe mid-vessel and distal- vessel disease that is diffuse and that includes all branches and that is not amenable to intervention; chronic total occlusion of prox/mid LCX (unsuccessful attempt at revasc today); 95% ostial and prox RI that was successfully stented with Skypoint 2.25 x 12 mm stent; dominant RCA that has diffuse mod to mod severe disease; LVEDP 35 mmHg; LVEF 65-70%; very localized and small segment of apical dyskinesis - Echo on 12/13/21: hypokinesis of basal inferolateral myocardium, LVEF 45-50%, mod MR, grade 3 honeycutt dysfunction of LV, mild to mod TR, mild AI, AoV sclerosis w/o stenosis, PASP 65-70 mmHg Pulmonary hypertension - Echocardiogram of 07-03-21 showed LVEF 60-65%. Mild MR. Bicuspid morphology of aortic valve can not be excluded. The leaflets are mildly thickened. Mild to mod stenosis. Mild regurg. Mild to mod TR. PASP 50-55mmHg ACUTE ON CHRONIC RENAL FAILURE - RENAL FUNCTION USUALLY AT STAGE 3, NOW WITH ACUTE AND RAPID WORSENING OF RENAL FUNCTION. - DISCUSSED WITH PT AND HER DTR - SHE IS AT HIGH RISK OF FURTHER WORSENING DUE TO HER CURRENT CARDIOVASCULAR SITUATION, WOULD RECOMMEND WE TRANSFER HER TO [facility]. - DISCUSSED WITH [facility] DIRECT CALL, WAITING WEB APPLICATION DEV SPECIALIST BACK FROM CRITICAL CARE PHYSICIAN WITH NEPHROLOGY CONSULTATION, CALL BACK AT [phone] FRANKLIN TO DISCUSS WITH DR. COYNE THE HEART CATHETERIZATION AND ANY CONCERNS PERTAINING TO HER CARDIAC STATUS PRIOR TO ACCEPTING TRANSFER IN THE CRITICAL CARE UNIT. - PT ACCEPTED IN TRANSFER TO [facility] LEUKOCYTOSIS - SIGNIFICANT INCREASE OVER THE PAST FEW DAYS SINCE ADMISSION - FROM 13 UP TO 26 TODAY. - PT IS ON AZITHROMYCIN AND ROCEPHIN. - WILL DC ABOVE ANTIBIOTICS, CHANGE TO MEROPENEM WITH PHARMACY TO ADJUST BASED ON RENAL FUNCTION. HYPOTENSION DUE TO SHOCK (CARDIOGENIC VS HYPOVOLEMIC VS SEPSIS) - CHANGING ANTIBIOTICS - PT ON DOPAMINE AND LOW RATE OF FLUIDS AT 40ML/HR CHRONIC ATRIAL FIBRILLATION (RATE CONTROLLED) - PT ON NOAC THERAPY OUTPATIENT SLEEP APNEA - CONTINUE WITH CPAP AT NIGHT/SLEEP HYPERLIPIDEMIA - STATIN THERAPY - HIGH DOSE DIABETES MELLITUS - DIABETIC DIET - SLIDING SCALE - MONITOR FSBS PER ICU PROTOCOL PMHX: BREAST CANCER DVT'S CRITICAL CARE PATIENT - TOTAL TIME IN PHYSICAL EVAL, REVIEW OF CHART, DISCUSSION WITH PT AND FAMILY AND MANAGING TRANSFER OVER 65 MINUTES. Labs Microbiology 12/13/21 Urine Culture - Final, Complete NO GROWTH 12/12/21 MRSA Screen - Final, Complete MRSA not isolated Laboratory Tests Test 12/14/21 10:11 12/14/21 16:25 12/14/21 16:44 12/14/21 16:46 Range/Units Glucometer 167 H 159 H 70-110 MG/DL Sodium Level 135 135-145 MMOL/L Potassium Level 4.6 3.6-5.0 MMOL/L Chloride Level 105 98-107 MMOL/L Carbon Dioxide Level 19 L 21-32 MMOL/L Anion Gap 11 5-14 MMOL/L Blood Urea Nitrogen 32 H 7-18 MG/DL Creatinine 2.11 H 0.60-1.30 MG/DL Estimat Glomerular Filtration Rate 23 BUN/Creatinine Ratio 15 Glucose Level 148 H 70-105 MG/DL Calcium Level 8.2 L 8.5-10.1 MG/DL Blood Gas Puncture Site L BRACHIAL Blood Gas Patient Temperature 36 Arterial Blood pH 7.34 *L 7.37-7.43 Arterial Blood Partial Pressure CO2 37 35-45 MMHG Arterial Blood Partial Pressure O2 54 L 79-93 MMHG Arterial Blood HCO3 20 L 23-27 MMOL/L Arterial Blood Total CO2 21.2 21.0-31.0 MMOL/L Arterial Blood Oxygen Saturation 87 L 94-100 % Arterial Blood Base Excess -4.9 L -2.5-2.5 MMOL/L Rafa Test YES-POS Blood Gas Ventilator Setting NO Blood Gas Inspired Oxygen 4 L Test 12/14/21 20:03 12/14/21 22:04 12/15/21 04:57 12/15/21 05:55 Range/Units Glucometer 163 H 127 H 70-110 MG/DL Sodium Level 140 139 135-145 MMOL/L Potassium Level 4.5 4.3 3.6-5.0 MMOL/L Chloride Level 103 106 98-107 MMOL/L Carbon Dioxide Level 21 19 L 21-32 MMOL/L Anion Gap 16 H 14 5-14 MMOL/L Blood Urea Nitrogen 34 H 37 H 7-18 MG/DL Creatinine 2.26 H 2.31 H 0.60-1.30 MG/DL Estimat Glomerular Filtration Rate 21 21 BUN/Creatinine Ratio 15 16 Glucose Level 153 H 120 H 70-105 MG/DL Calcium Level 8.9 8.9 8.5-10.1 MG/DL Magnesium Level 2.5 H 2.4 1.6-2.4 MG/DL White Blood Count 26.2 H 4.3-11.0 10^3/uL Red Blood Count 4.40 3.80-5.11 10^6/uL Hemoglobin 12.3 11.5-16.0 g/dL Hematocrit 39 35-52 % Mean Corpuscular Volume 88 80-99 fL Mean Corpuscular Hemoglobin 28 25-34 pg Mean Corpuscular Hemoglobin Concent 32 32-36 g/dL Red Cell Distribution Width 14.5 10.0-14.5 % Platelet Count 298 130-400 10^3/uL Mean Platelet Volume 11.3 9.0-12.2 fL Immature Granulocyte % (Auto) 1 % Neutrophils (%) (Auto) 87 H 42-75 % Lymphocytes (%) (Auto) 4 L 12-44 % Monocytes (%) (Auto) 8 0-12 % Eosinophils (%) (Auto) 0 0-10 % Basophils (%) (Auto) 0 0-10 % Neutrophils # (Auto) 22.8 H 1.8-7.8 10^3/uL Lymphocytes # (Auto) 1.0 1.0-4.0 10^3/uL Monocytes # (Auto) 2.2 H 0.0-1.0 10^3/uL Eosinophils # (Auto) 0.0 0.0-0.3 10^3/uL Basophils # (Auto) 0.1 0.0-0.1 10^3/uL Immature Granulocyte # (Auto) 0.3 H 0.0-0.1 10^3/uL Neutrophils % (Manual) 87 % Lymphocytes % (Manual) 4 % Monocytes % (Manual) 8 % Band Neutrophils 1 % Toxic Granulation 1+ Corrected Calcium 9.5 8.5-10.1 MG/DL Phosphorus Level 4.2 2.3-4.7 MG/DL Total Bilirubin 0.7 0.1-1.0 MG/DL Aspartate Amino Transf (AST/SGOT) 117 H 5-34 U/L Alanine Aminotransferase (ALT/SGPT) 49 0-55 U/L Alkaline Phosphatase 46 40-136 U/L Total Protein 6.8 6.4-8.2 GM/DL Albumin 3.3 3.2-4.5 GM/DL Pending Labs Laboratory Tests 12/15/21 04:57: White Blood Count 26.2, Red Blood Count 4.40, Hemoglobin 12.3, Hematocrit 39, Mean Corpuscular Volume 88, Mean Corpuscular Hemoglobin 28, Mean Corpuscular Hemoglobin Concent 32, Red Cell Distribution Width 14.5, Platelet Count 298, Mean Platelet Volume 11.3, Immature Granulocyte % (Auto) 1, Neutrophils (%) (Auto) 87, Lymphocytes (%) (Auto) 4, Monocytes (%) (Auto) 8, Eosinophils (%) (Auto) 0, Basophils (%) (Auto) 0, Neutrophils # (Auto) 22.8, Lymphocytes # (Auto) 1.0, Monocytes # (Auto) 2.2, Eosinophils # (Auto) 0.0, Basophils # (Auto) 0.1, Immature Granulocyte # (Auto) 0.3, Neutrophils % (Manual) 87, Lymphocytes % (Manual) 4, Monocytes % (Manual) 8, Band Neutrophils 1, Toxic Granulation 1+, Sodium Level 139, Potassium Level 4.3, Chloride Level 106, Carbon Dioxide Level 19, Anion Gap 14, Blood Urea Nitrogen 37, Creatinine 2.31, Estimat Glomerular Filtration Rate 21, BUN/Creatinine Ratio 16, Glucose Level 120, Calcium Level 8.9, Corrected Calcium 9.5, Phosphorus Level 4.2, Magnesium Level 2.4, Total Bilirubin 0.7, Aspartate Amino Transf (AST/SGOT) 117, Alanine Aminotransferase (ALT/SGPT) 49, Alkaline Phosphatase 46, Total Protein 6.8, Albumin 3.3 12/15/21 05:55: Glucometer 127 Radiology Reviewed [facility] [place] NAME: RAYMON URBANO [facility] REC#: [id number] PT STATUS: ADM IN : 1940 PHYSICIAN: SILVANO OGLESBY DO ADMIT DATE: 12/12/21/ICU Signed Date of Exam:12/14/21 CHEST 1 VIEW, AP/PA ONLY INDICATION: Evaluate PICC line placement. COMPARISON: Prior examination from 12/14/2021 at 4:07 PM. This was done on same day at 9:38 PM. FINDINGS: The PICC line is in the mid right subclavian vein. There is cardiomegaly and some venous congestion. No pleural effusion or pneumothorax. The mediastinum is unremarkable. IMPRESSION: 1. The right upper extremity PICC line has its tip in the mid right subclavian vein. 2. Cardiomegaly and some central pulmonary venous congestion. Dictated by: Dictated on workstation # [id number] Dict: 12/14/212152 Trans: 12/14/212200 [facility] [id number] Interpreted by: VIJAY MCRAE MD Electronically signed by: VIJAY MCRAE MD 12/14/212200 Discharge Condition at discharge GUARDED/CRITICAL Instructions to patient/family Please see electronic discharge instructions given to patient. Discharge Medications Reviewed and agree with Discharge Medication list on patient's Discharge Instruction sheet Clinical Quality Measures AMI/AHF: ASA po Prior to arrival: No KRIS FERRER MD Dec 15, 2021 10:06
[2021-12-15] MEDS ORDERED: MEROPENEM 500 MG in NS (IVPB) 100 ML IV SCH (10:15)
--- NOTE | 2021-12-15 11:06 | Discharge Inst-Simple/Standard ---
Discharge Inst-Standard Reconcile Patient Problems Problems Reviewed?: Yes Patient Instructions/Follow Up Plan of Care/Instructions/FU: DISCHARGED TO [facility] Activity as Tolerated: No Discharge Diet: ADA Diet KRIS FERRER MD Dec 15, 2021 11:06
--- NOTE | 2021-12-15 14:01 | Progress Note - Cardiology ---
Cardiology SOAP Progress Note Subjective: Denies cp today Says slept well last night No shortness of breath at rest No palp or syncope No n/v/d Objective: I&O/Vital Signs 12/15/21 12/15/21 12/15/21 12/15/21 02:00 03:00 03:50 03:50 Temp 36.2 Pulse 96 92 Resp 20 19 B/P (MAP) 115/74 94/72 Pulse Ox 94 93 94 O2 Delivery Nasal Cannula Nasal Cannula Nasal Cannula Nasal Cannula O2 Flow Rate 6.00 6.00 5.00 5.00 12/15/21 12/15/21 12/15/21 12/15/21 04:00 05:00 06:00 06:09 Pulse 112 108 92 Resp 16 25 26 B/P (MAP) 102/63 102/74 86/58 Pulse Ox 92 91 92 O2 Delivery Nasal Cannula Nasal Cannula Nasal Cannula O2 Flow Rate 5.00 5.00 5.00 12/15/21 12/15/21 12/15/21 12/15/21 07:00 07:21 08:00 08:00 Temp 36.7 Pulse 96 97 90 Resp 16 24 B/P (MAP) 103/74 95/85 Pulse Ox 91 90 O2 Delivery Nasal Cannula Nasal Cannula O2 Flow Rate 5.00 5.00 12/15/21 12/15/21 12/15/21 12/15/21 08:07 08:23 09:00 09:09 Pulse 106 100 Resp 20 B/P (MAP) 95/85 91/70 Pulse Ox 91 91 92 O2 Delivery Nasal Cannula Nasal Cannula Nasal Cannula O2 Flow Rate 5.00 5.00 5.00 12/15/21 12/15/21 12/15/21 12/15/21 10:00 11:00 12:00 12:26 Pulse 116 105 80 Resp 24 21 17 B/P (MAP) 104/43 90/45 86/65 Pulse Ox 90 90 90 91 O2 Delivery Nasal Cannula Nasal Cannula Nasal Cannula Nasal Cannula O2 Flow Rate 5.00 5.00 5.00 5.00 12/15/21 13:00 Pulse 101 Resp 17 B/P (MAP) 103/50 Pulse Ox 90 O2 Delivery Nasal Cannula O2 Flow Rate 5.00 12/15/21 00:00 Intake Total 950 ml Output Total 135 ml Balance 815 ml Weight (Pounds): 142 Weight (Ounces): 0.0 Weight (Calculated Kilograms): 64.863562 Constitutional: AAO x 3, well-developed, well-nourished Respiratory: other Cardiovascular: irregularly irregular, S1 and S2, systolic murmur Gastrointestional: soft, audible bowel sounds Extremities: No clubbing, No cyanosis, No significant edema Neurologic/Psychiatric: other Skin: No rash on exposed areas, No ulcerations on exposed areas Results/Procedures: Labs Laboratory Tests 12/14/21 16:25: Sodium Level 135, Potassium Level 4.6, Chloride Level 105, Carbon Dioxide Level 19L, Anion Gap 11, Blood Urea Nitrogen 32H, Creatinine 2.11H, Estimat Glomerular Filtration Rate 23, BUN/Creatinine Ratio 15, Glucose Level 148H, Calcium Level 8.2L 12/14/21 16:44: Blood Gas Puncture Site L BRACHIAL, Blood Gas Patient Temperature 36, Arterial Blood pH 7.34*L, Arterial Blood Partial Pressure CO2 37, Arterial Blood Partial Pressure O2 54L, Arterial Blood HCO3 20L, Arterial Blood Total CO2 21.2, Arterial Blood Oxygen Saturation 87L, Arterial Blood Base Excess -4.9L, Rafa Test YES-POS, Blood Gas Ventilator Setting NO, Blood Gas Inspired Oxygen 4 L 12/14/21 16:46: Glucometer 159H 12/14/21 20:03: Glucometer 163H 12/14/21 22:04: Sodium Level 140, Potassium Level 4.5, Chloride Level 103, Carbon Dioxide Level 21, Anion Gap 16H, Blood Urea Nitrogen 34H, Creatinine 2.26H, Estimat Glomerular Filtration Rate 21, BUN/Creatinine Ratio 15, Glucose Level 153H, Calcium Level 8.9, Magnesium Level 2.5H 12/15/21 04:57: Sodium Level 139, Potassium Level 4.3, Chloride Level 106, Carbon Dioxide Level 19L, Anion Gap 14, Blood Urea Nitrogen 37H, Creatinine 2.31H, Estimat Glomerular Filtration Rate 21, BUN/Creatinine Ratio 16, Glucose Level 120H, Calcium Level 8.9, Magnesium Level 2.4, White Blood Count 26.2H, Red Blood Count 4.40, Hemoglobin 12.3, Hematocrit 39, Mean Corpuscular Volume 88, Mean Corpuscular Hemoglobin 28, Mean Corpuscular Hemoglobin Concent 32, Red Cell Distribution Width 14.5, Platelet Count 298, Mean Platelet Volume 11.3, Immature Granulocyte % (Auto) 1, Neutrophils (%) (Auto) 87H, Lymphocytes (%) (Auto) 4L, Monocytes (%) (Auto) 8, Eosinophils (%) (Auto) 0, Basophils (%) (Auto) 0, Neutrophils # (Auto) 22.8H, Lymphocytes # (Auto) 1.0, Monocytes # (Auto) 2.2H, Eosinophils # (Auto) 0.0, Basophils # (Auto) 0.1, Immature Granulocyte # (Auto) 0.3H, Neutrophils % (Manual) 87, Lymphocytes % (Manual) 4, Monocytes % (Manual) 8, Band Neutrophils 1, Toxic Granulation 1+, Corrected Calcium 9.5, Phosphorus Level 4.2, Total Bilirubin 0.7, Aspartate Amino Transf (AST/SGOT) 117H, Alanine Aminotransferase (ALT/SGPT) 49, Alkaline Phosphatase 46, Total Protein 6.8, Albumin 3.3 12/15/21 05:55: Glucometer 127H Microbiology 12/13/21 Urine Culture - Final, Complete NO GROWTH 12/12/21 MRSA Screen - Final, Complete MRSA not isolated Laboratory Tests 12/14/21 05:00 12/14/21 16:25 12/14/21 22:04 12/15/21 04:57 A/P: Assessment: Acute lateral STEMI on 12/12/21 - Emergency card cath on 12/12/21: LMCA ok; LAD severe mid-vessel and distal- vessel disease that is diffuse and that includes all branches and that is not amenable to intervention; chronic total occlusion of prox/mid LCX (unsuccessful attempt at revasc today); 95% ostial and prox RI that was successfully stented with Skypoint 2.25 x 12 mm stent; dominant RCA that has diffuse mod to mod severe disease; LVEDP 35 mmHg; LVEF 65-70%; very localized and small segment of apical dyskinesis - Echo on 12/13/21: hypokinesis of basal inferolateral myocardium, LVEF 45-50%, mod MR, grade 3 honeycutt dysfunction of LV, mild to mod TR, mild AI, AoV sclerosis w/o stenosis, PASP 65-70 mmHg Ac on chronic renal failure (RENATA 2 on CKD 3-4) - CKD due to diabetic nephropathy - acute component likely due to contrast nephropathy and/or ATN due to hypotension Leucocytosis - ?systemic infection - Hospitalist and EICU svces managing Hypotension: cardiogenic and/or septic Cervical radiculopathy - managed by PCP Chronic atrial fib - OAC with Eliquis CASTRO treated with CPAP Pulmonary hypertension - Echocardiogram of 07-03-21 showed LVEF 60-65%. Mild MR. Bicuspid morphology of aortic valve can not be excluded. The leaflets are mildly thickened. Mild to mod stenosis. Mild regurg. Mild to mod TR. PASP 50-55mmHg History of multiple recurrent deep venous thrombosis - OAC (see above) Oncology - History of breast cancer treated with left sided mastectomy followed by chemotherapy, currently stated to be in remission. Hyperlipidemia. - statin tx - followed by PCP Borderline DM II - based on blood work of 02/25/18 - followed by PCP Mild hypercalcemia of undetermined etiology for which f/u is with her pcp Plan: * Complex management due to multiple comorbidities and because much of her CAD is not amenable to bypass or PCI * I discussed her case with EICU and Dr Han yesterday. I discussed it today with Dr Gonzales * Given deteriorating condition and multisystem involvement, it appears appropriate to transfer to a tertiary care facility where all needed services are available * I called Dr Mendez at [facility] and discussed the case with him. He has kindly agreed to take Ms. Garcias in transfer * Dr Gonzales has spoken with the ICU service at [facility] * I spoke with Ms Garcias regarding the rationale and alternative of transfer. She understands and agrees to the transfer Clinical Quality Measures AMI/AHF: ASA po Prior to arrival: DELTA Chandler MD FACP FAC CCDS Dec 15, 2021 14:01
--- NOTE | 2021-12-15 14:07 | Cardiology Discharge Summary ---
Diagnosis/Chief Complaint Date of Admission Dec 12, 2021 at 20:41 Date of Discharge 12/15/2021 Final/Discharge Diagnosis Acute lateral STEMI on 12/12/21 - Emergency card cath on 12/12/21: LMCA ok; LAD severe mid-vessel and distal- vessel disease that is diffuse and that includes all branches and that is not amenable to intervention; chronic total occlusion of prox/mid LCX (unsuccessful attempt at revasc today); 95% ostial and prox RI that was successfully stented with Skypoint 2.25 x 12 mm stent; dominant RCA that has diffuse mod to mod severe disease; LVEDP 35 mmHg; LVEF 65-70%; very localized and small segment of apical dyskinesis - Echo on 12/13/21: hypokinesis of basal inferolateral myocardium, LVEF 45-50%, mod MR, grade 3 honeycutt dysfunction of LV, mild to mod TR, mild AI, AoV sclerosis w/o stenosis, PASP 65-70 mmHg Ac on chronic renal failure (RENATA 2 on CKD 3-4) - CKD due to diabetic nephropathy - acute component likely due to contrast nephropathy and/or ATN due to hypotension Leucocytosis - ?systemic infection - Hospitalist and EICU svces managing Hypotension: cardiogenic and/or septic Cervical radiculopathy - managed by PCP Chronic atrial fib - OAC with Eliquis CASTRO treated with CPAP Pulmonary hypertension - Echocardiogram of 07-03-21 showed LVEF 60-65%. Mild MR. Bicuspid morphology of aortic valve can not be excluded. The leaflets are mildly thickened. Mild to mod stenosis. Mild regurg. Mild to mod TR. PASP 50-55mmHg History of multiple recurrent deep venous thrombosis - OAC (see above) Oncology - History of breast cancer treated with left sided mastectomy followed by chemotherapy, currently stated to be in remission. Hyperlipidemia. - statin tx - followed by PCP Borderline DM II - based on blood work of 02/25/18 - followed by PCP Mild hypercalcemia of undetermined etiology for which f/u is with her pcp Chief Complaint/HPI Chief Complaint/HPI Please refer to our progress note of today's date for condition at discharge Discharge Summary Hospital Course Was the Problem List Reviewed?: Yes Discussion & Recommendations Activity as Tolerated: No Home Medications Reviewed patient Home Medication Reconciliation performed by pharmacy medication reconciliations payroll technician and/or nursing. Patients Allergies have been reviewed. Discharge Home Medications: Reviewed and agree with Discharge Medication list on patient's Discharge In struction sheet Clinical Quality Measures AMI/AHF: ASA po Prior to arrival: DELTA Chandler MD FACP FAC CCDS Dec 15, 2021 14:07
== END 2021-12-15 15:00 | disposition short-term general hospital (02) | DRG 246 ==
LOC: EDUNIT# 18:05 → ER 18:07 → CATH 18:58 → ICU 20:41
PROVIDERS: ADMIT Internal Medicine Cardiovascular Disease; ATTEND Internal Medicine Cardiovascular Disease
PROC: 027034Z Dilation of Coronary Artery, One Artery with Drug-eluting Intraluminal Device, Percutaneous Approach (ICD-10-PCS; principal; 2021-12-12)
PROC: 4A023N7 Measurement of Cardiac Sampling and Pressure, Left Heart, Percutaneous Approach (ICD-10-PCS; 2021-12-12)
PROC: B2111ZZ Fluoroscopy of Multiple Coronary Arteries using Low Osmolar Contrast (ICD-10-PCS; 2021-12-12)
PROC: B2151ZZ Fluoroscopy of Left Heart using Low Osmolar Contrast (ICD-10-PCS; 2021-12-12)
DX: I21.29 ST elevation (STEMI) myocardial infarction involving other sites (principal); N17.0 Acute kidney failure with tubular necrosis; R57.9 Shock, unspecified; I48.21 Permanent atrial fibrillation; N39.0 Urinary tract infection, site not specified; I13.0 Hypertensive heart and chronic kidney disease with heart failure and stage 1 through stage 4 chronic kidney disease, or unspecified chronic kidney disease; N18.4 Chronic kidney disease, stage 4 (severe); I50.1 Left ventricular failure, unspecified; Z20.822 Contact with and (suspected) exposure to COVID-19; I25.82 Chronic total occlusion of coronary artery; I25.10 Atherosclerotic heart disease of native coronary artery without angina pectoris; R09.02 Hypoxemia; I27.20 Pulmonary hypertension, unspecified; I08.3 Combined rheumatic disorders of mitral, aortic and tricuspid valves; E78.00 Pure hypercholesterolemia, unspecified; E11.22 Type 2 diabetes mellitus with diabetic chronic kidney disease; G47.33 Obstructive sleep apnea (adult) (pediatric); E87.6 Hypokalemia; E83.41 Hypermagnesemia; E83.52 Hypercalcemia; M54.12 Radiculopathy, cervical region; Z86.718 Personal history of other venous thrombosis and embolism; Z79.01 Long term (current) use of anticoagulants; Z85.3 Personal history of malignant neoplasm of breast; Z90.12 Acquired absence of left breast and nipple; Z88.0 Allergy status to penicillin; Z88.6 Allergy status to analgesic agent
CPT/HCPCS: 36415; 36569; 36600; 71045; 76937; 80048; 80053; 80061; 80162; 81000; 82150; 82550; 82553; 82805; 82947; 83036; 83690; 83735; 83874; 83880; 84100; 84145; 84443; 84484; 85007; 85025; 85027; 85610; 85730; 87081; 87088; 87636; 93005; 93041; 93306; 93458; 94660; 94664